=== PATIENT | male | born 1945 | race Caucasian/White ===

== ENCOUNTER 2016-12-16 06:14 | Inpatient (IN) ==
--- NOTE | 2016-12-11 21:25 | Discharge Summary ---
<LennyfabianoThelma keitaLeeanne L - Last Filed: 12/13/16 21:28> - Discharge Diagnosis (1) Arthritis of knee, right Priority: Primary Status: Acute (2) COPD (chronic obstructive pulmonary disease) Priority: Secondary Status: Chronic Qualifiers: COPD type: unspecified COPD Qualified Code(s): J44.9 - Chronic obstructive pulmonary disease, unspecified (3) HTN (hypertension) Priority: Secondary Status: Chronic Qualifiers: Hypertension type: essential hypertension Qualified Code(s): I10 - Essential (primary) hypertension (4) Tobacco use Priority: Secondary Status: Chronic (5) Dementia Priority: Secondary Status: Chronic Qualifiers: Dementia type: unspecified type Dementia behavioral disturbance: without behavioral disturbance Qualified Code(s): F03.90 - Unspecified dementia without behavioral disturbance - Discharge Medications Home Medications: Aspirin Enteric Coated [Aspirin EC] 325 mg PO DAILY #21 tablet. 12/13/16 [Rx] OxyCODONE Immed Rel [Roxicodone 5 MG] 5 - 10 mg PO Q6HR PRN #40 tablet 12/13/16 [Rx] Albuterol Sulfate [Albuterol Inhaler] 2 puff IH Q4HR PRN 12/16/16 [History] Amlodipine [Norvasc] 5 mg PO DAILY 12/16/16 [History] Ascorbate Calcium [Vitamin C] 500 mg PO DAILY 12/16/16 [History] Aspirin 325 mg PO DAILY 12/16/16 [History] Atenolol 100 mg PO DAILY 12/16/16 [History] Budesonide/Formoterol 160/4.5 [Symbicort 160/4.5] 2 puff IH BIDR 12/16/16 [ History] Capsaicin 0.025% [Trixaicin] 1 appl TP TID 12/16/16 [History] Cholecalciferol (D-3) [Vitamin D] 2,000 unit PO DAILY 12/16/16 [History] Cimetidine 400 mg PO DAILY 12/16/16 [History] Diphenoxylate/Atropine [Lomotil 2.5 mg/0.025 mg] 2 each PO QID 12/16/16 [History ] Donepezil [Aricept] 10 mg PO HS 12/16/16 [History] Ferrous Sulfate [Iron] 325 mg PO DAILY 12/16/16 [History] Fexofenadine HCl [Allergy Relief] 180 mg PO DAILY 12/16/16 [History] Finasteride [Proscar] 5 mg PO DAILY 12/16/16 [History] GuaiFENesin/Dextromethorphan [Robitussin Cough-Chest Dm Liq] 10 ml PO Q4H PRN [History] Guaifenesin [Mucus Relief] 400 mg PO TID PRN 12/16/16 [History] HYDROcodone/Acet 7.5/325 mg [[place] 7.5-325 mg] 1 tab PO Q4H PRN 12/16/16 [ History] Hydrochlorothiazide 12.5 mg PO DAILY 12/16/16 [History] Hydrocortisone 1% CREAM [Cortaid] 1 appl TP DAILY PRN 12/16/16 [History] Ipratropium/Albuterol Neb [Duoneb] 3 ml IH Q6HR PRN 12/16/16 [History] Loperamide [Imodium] 2 mg PO QID PRN 12/16/16 [History] Losartan/Hydrochlorothiazide [Hyzaar 100-25 Tablet] 1 each PO DAILY 12/16/16 [ History] Memantine HCl [Namenda Xr] 7 mg PO DAILY 12/16/16 [History] Multivit,Th Iron,Other Min [Therems-H] 1 each PO DAILY 12/16/16 [History] Multivitamin [One Daily Essential] 1 each PO DAILY 12/16/16 [History] Nicotine Patch [Nicoderm] 7 mg TD DAILY MDD 14 days 12/16/16 [History] Nicotine Patch [Nicoderm] 14 mg TD DAILY MDD 14 days 12/16/16 [History] Quetiapine Fumarate [Seroquel] 12.5 mg PO HS 12/16/16 [History] Sertraline [Zoloft] 50 mg PO DAILY 12/16/16 [History] Simvastatin [Zocor] 40 mg PO HS 12/16/16 [History] Tamsulosin [Flomax] 0.4 mg PO DAILY 12/16/16 [History] Tizanidine HCl 4 mg PO Q8H PRN 12/16/16 [History] Tramadol HCl [Ultram] 50 mg PO TID PRN 12/16/16 [History] Allergies/Adverse Reactions: Allergies No Known Allergies Allergy (Verified 12/16/16 07:17) Primary care physician: August Montejo MD - Patient Status Disposition: Home, Self-Care Condition: Good - Discharge Instructions Follow Up With: August Montejo MD [Primary Care Provider] - - Hospital Course Hospital course: Mr. Lay is a 70 year old male - Time Spent with Patient Total time spent providing and/or coordinating discharge services: <CatesAnderson - Last Filed: 12/18/16 07:57> Date of Encounter: 12/18/16 Time of Encounter: 07:56 - Discharge Diagnosis (1) Arthritis of knee, right Priority: Primary Status: Acute (2) COPD (chronic obstructive pulmonary disease) Priority: Secondary Status: Chronic Qualifiers: COPD type: unspecified COPD Qualified Code(s): J44.9 - Chronic obstructive pulmonary disease, unspecified (3) HTN (hypertension) Priority: Secondary Status: Chronic Qualifiers: Hypertension type: essential hypertension Qualified Code(s): I10 - Essential (primary) hypertension (4) Tobacco use Priority: Secondary Status: Chronic (5) Dementia Priority: Secondary Status: Chronic Qualifiers: Dementia type: unspecified type Dementia behavioral disturbance: without behavioral disturbance Qualified Code(s): F03.90 - Unspecified dementia without behavioral disturbance Primary care physician: August Montejo MD - Patient Status Functional capacity at discharge: uses cane/walker Overall status at discharge: patient is progressing back to baseline - Hospital Course Hospital course: Mr. Lay is a 70 year old male The patient had an uneventful postoperative course. They received antibiotics and physical therapy and were discharged in stable condition. There will follow -up in the office in 2 weeks. Aspirin DVT prophylaxis - Time Spent with Patient Total time spent providing and/or coordinating discharge services:
[2016-12-16] MEDS ORDERED: Vancomycin 1,250 MG in D5% in Water 250 ML IVPB ONE (06:35)
[2016-12-16] MEDS ORDERED: Albuterol 2.5 MG/3 ML NEBULIZER IH ONE (06:35)
--- NOTE | 2016-12-16 06:40 | History & Physical Report ---
Date of Encounter: 12/16/16 Time of Encounter: 06:39 24 Hour HP Update - Instructions Instructions: If the History and Physical is less than 30 days old and was completed prior to A.M. admission and or procedure and has NOT been updated on calendar day of procedure please complete this update prior to performing procedure. - Update Patient reports changes in Medical Condition: No Changes in assessment/condition: No Changes in Medication: No Preop tests/diagnostics Reviewed: Yes Surgery Remains Indicated: Yes Consent for Planned Operative Procedure(s) Verified: Yes - Pre-Operative Checklist Preoperative Checklist Indicated: No Prophylactic Antibiotic Ordered: Yes Is VTE Prophylaxis Indicated?: Yes
[2016-12-16] MEDS ORDERED: Ringers Solution, Lactated 1,000 ML IVC SCH (06:45)
[2016-12-16] MEDS ORDERED: Famotidine 20 MG/2 ML VIAL IVP ONE (07:47)
[2016-12-16] MEDS ORDERED: Acetaminophen IV 1,000 MG/100 ML INFUS..BTL IVPB ONE (07:49)
--- NOTE | 2016-12-16 07:55 | Anesthesia Evaluation PreOp ---
Date of Encounter: 12/16/16 Time of Encounter: 07:45 - Past History Planned Operation: Rt TKA Cardiac History: [place] (1983), HTN, Hyperlipidemia, Arrhythmia (Chronic AFib), Other (PVD) Pulmonary History: Smoker, COPD ACID REMOVER History: Denies Any Significant HX Other Medical History: Other (Mood Disorder) Anesthesia History: No Prior Anesthetic Complications Alcohol Use: none Drug use: none Medications and Allergies Aspirin Enteric Coated [Aspirin EC] 325 mg PO DAILY #21 tablet. 12/13/16 [Rx] OxyCODONE Immed Rel [Roxicodone 5 MG] 5 - 10 mg PO Q6HR PRN #40 tablet 12/13/16 [Rx] Albuterol Sulfate [Albuterol Inhaler] 2 puff IH Q4HR PRN 12/16/16 [History] Amlodipine [Norvasc] 5 mg PO DAILY 12/16/16 [History] Ascorbate Calcium [Vitamin C] 500 mg PO DAILY 12/16/16 [History] Aspirin 325 mg PO DAILY 12/16/16 [History] Atenolol 100 mg PO DAILY 12/16/16 [History] Budesonide/Formoterol 160/4.5 [Symbicort 160/4.5] 2 puff IH BIDR 12/16/16 [ History] Capsaicin 0.025% [Trixaicin] 1 appl TP TID 12/16/16 [History] Cholecalciferol (D-3) [Vitamin D] 2,000 unit PO DAILY 12/16/16 [History] Cimetidine 400 mg PO DAILY 12/16/16 [History] Diphenoxylate/Atropine [Lomotil 2.5 mg/0.025 mg] 2 each PO QID 12/16/16 [History ] Donepezil [Aricept] 10 mg PO HS 12/16/16 [History] Ferrous Sulfate [Iron] 325 mg PO DAILY 12/16/16 [History] Fexofenadine HCl [Allergy Relief] 180 mg PO DAILY 12/16/16 [History] Finasteride [Proscar] 5 mg PO DAILY 12/16/16 [History] GuaiFENesin/Dextromethorphan [Robitussin Cough-Chest Dm Liq] 10 ml PO Q4H PRN [History] Guaifenesin [Mucus Relief] 400 mg PO TID PRN 12/16/16 [History] HYDROcodone/Acet 7.5/325 mg [[place] 7.5-325 mg] 1 tab PO Q4H PRN 12/16/16 [ History] Hydrochlorothiazide 12.5 mg PO DAILY 12/16/16 [History] Hydrocortisone 1% CREAM [Cortaid] 1 appl TP DAILY PRN 12/16/16 [History] Ipratropium/Albuterol Neb [Duoneb] 3 ml IH Q6HR PRN 12/16/16 [History] Loperamide [Imodium] 2 mg PO QID PRN 12/16/16 [History] Losartan/Hydrochlorothiazide [Hyzaar 100-25 Tablet] 1 each PO DAILY 12/16/16 [ History] Memantine HCl [Namenda Xr] 7 mg PO DAILY 12/16/16 [History] Multivit,Th Iron,Other Min [Therems-H] 1 each PO DAILY 12/16/16 [History] Multivitamin [One Daily Essential] 1 each PO DAILY 12/16/16 [History] Nicotine Patch [Nicoderm] 7 mg TD DAILY MDD 14 days 12/16/16 [History] Nicotine Patch [Nicoderm] 14 mg TD DAILY MDD 14 days 12/16/16 [History] Quetiapine Fumarate [Seroquel] 12.5 mg PO HS 12/16/16 [History] Sertraline [Zoloft] 50 mg PO DAILY 12/16/16 [History] Simvastatin [Zocor] 40 mg PO HS 12/16/16 [History] Tamsulosin [Flomax] 0.4 mg PO DAILY 12/16/16 [History] Tizanidine HCl 4 mg PO Q8H PRN 12/16/16 [History] Tramadol HCl [Ultram] 50 mg PO TID PRN 12/16/16 [History] Allergies No Known Allergies Allergy (Verified 12/16/16 07:17) - Meds/Allergy Pre-op Review Medications Reviewed: Yes Allergies Reviewed: Yes Beta Blockers on Current Med List: Yes (will be given this am) Anesthesia Results - Labs Laboratory Tests 12/02/16 12/02/16 12/02/16 09:27 09:27 09:27 Hgb 13.6 Hct 42.1 Plt Count 275 PT 11.4 INR 1.1 APTT 27.5 Sodium 140 Potassium 3.8 BUN 30 H Creatinine 1.09 - Imaging EKG: report reviewed (Atrial Fib) Anesthesia Exam O2 Sat Height 1.68 m Height 1.68 m Weight 83.915 kg Weight 83.915 kg O2 Sat by Pulse Oximetry 96 Vital Signs Temp Pulse Resp BP Pulse Ox 99.0 F 98 18 133/78 96 12/16/16 06:32 12/16/16 06:32 12/16/16 06:32 12/16/16 06:32 12/16/16 06:32 Height: 5'7 Weight: 181 lbs NPO (# of Hours): MN Pain Scale: 0 - HEENT Pupil (Motor): Pupils equal, EOMI Mallampati: III Teeth: Edentulous Oral Opening: Less than or equal to 3 - ACID REMOVER LOC: Oriented ACID REMOVER Motor: Normal RUE, Normal LUE, Normal RLE, Normal LLE, Normal Face ACID REMOVER Sensory: Normal: RUE, LUE, RLE, LLE, Face - Cardiac Rhythm: Regular Murmur: None JVD: No Carotid Bruit: No - Pulmonary Breath Sounds: bilateral Clear Respiratory Effort: Symmetrical Anesthesia Assess/Plan ASA Score: 3 (AFib HTN COPD) Modified [place] Scale for Level of Consciousness: Cooperative, oriented, and tranquil Anesthetic Plan: General, Regional Monitoring Plan: Standard Monitors Recovery Plan: PACU (Discussed GA and RA, agrees to proceed)
[2016-12-16] MEDS ORDERED: Bupivacaine/Clonidine Syringe 1 EACH SYRINGE ONE (07:57)
[2016-12-16] MEDS ORDERED: Tetracaine/PF 20 MG/2 ML AMPUL SPINA ONE (08:00)
[2016-12-16] MEDS ORDERED: ROPIVACAINE HCL/PF 0.5% 30 ML VIAL ONE (08:00)
[2016-12-16] MEDS ORDERED: *HR* Midazolam HCl 2 MG/2 ML VIAL ONE (08:52)
[2016-12-16] MEDS ORDERED: *HR* FentaNYL (PF) 100 MCG/2 ML VIAL ONE (08:52)
[2016-12-16] MEDS ORDERED: *HR* Propofol 200 MG/20 ML VIAL IVP ONE (08:52)
[2016-12-16] MEDS ORDERED: Lidocaine -MPF 2% 2 ML VIAL ONE (08:52)
[2016-12-16] MEDS ORDERED: *HR* Phenylephrine 10 MG/ML VIAL ONE (08:52)
[2016-12-16] MEDS ORDERED: *HR* Labetalol 100 MG/20 ML MDV IVP PRN (08:58)
[2016-12-16] MEDS ORDERED: Ondansetron 4 MG/2 ML VIAL IVP PRN (08:58)
[2016-12-16] MEDS ORDERED: *HR* HYDROmorphone (PF) 1 MG/ML SYRINGE IVP PRN (08:58)
--- NOTE | 2016-12-16 09:04 | Anesthesia Procedures ---
Date of Encounter: 12/16/16 Time of Encounter: 08:20 Procedures: Anesthesia - Nerve Block Procedure Date: 12/16/16 Time: 08:20 Allergies/Adv Reactions: [id number] Pre-op Diagnosis: R knee arthritis Surgical Procedure: R TKA Checklist: Correct Patient Identifier, Correct procedure, History checked Correct side: Right Blood Thinner: Yes Monitor Applied: EKG, BP, Pulse Oximetry Supplemental Oxygen via Nasal Cannula (L/min): 3 Sedation: Versed (mg): 1 Sedation: Fentanyl (mcg): 50 Indication: Post Op Analgesia (requested by Dr. Cates) Pre-op Neuro Deficits: No Block Type: Femoral, Other (I-PACK) Catheter placed: No Sterile Technique: Yes Ultrasound used: Yes Anatomy identified: Yes Visual spread of Local: Yes Neuro Stimulation: Yes Nerve Stimulator Range: 0.2 - 0.4 mA Blood on Needle Aspiration: No Smooth Injection of Local: Yes Pain with Injection of Local: No Prep: Chlorhexadine Needle: 22 x 50 mm Stimuplex Local: 0.25% Bupivicaine w/Clonidine 20 mcg/cc (20), Tetracaine (2mL 1%), Ropivacaine (30mL 0.5%) Number of Attempts: 1 Complications: None/effective block Vitals: 3 Vital Signs Time pre-procedure post-procedure BP 128/73 135/70 Pulse 88 92 Resp 16 14 O2 Sat 99 99
--- NOTE | 2016-12-16 09:08 | Orthopedic Operative Note ---
Date of procedure: 12/16/16 Pre-op diagnosis: Right knee arthritis Post-op diagnosis: same Procedure: Procedure: Right Total knee replacement Estimated blood loss: 200 cc Hardware: Arthrex Femur: 6 Tibia: 5 PS insert: 13 Patella: 40 Exam Under anesthesia: Full flexion and extension no instability Procedural Notes: Patient noted to have grade 4 arthritic changes medial compartment grade 3 patellofemoral joint. Operative procedure: The patient was brought to the operating room and placed on the operating room table. After general anesthesia was administered the operative knee was examined. Findings were noted in the exam under anesthesia. The operative extremity was prepped and draped in sterile surgical fashion. The patient received IV antibiotics prior to skin incision. A standard midline incision was made centered over the patella. The incision was made through the skin and subcutaneous tissue. A medial parapatellar tendon approach was performed. Care was taken to preserve tissue along the medial aspect of the patella. And to protect the patella tendon. The deep MCL was released off the medial tibia. The infra patella fat pad was excised. Knee was brought into flexion. Patient noted to have grade 4 arthritic changes medial compartment grade 3 arthritic changes patellofemoral joint. The entry hole was made for the intramedullary femoral guide. The guide was seated in 6 degrees of valgus. Anterior cut was made followed by the distal cut. The ACL the PCL the medial and the lateral menisci were excised. The tibia was subluxed forward. The entry hole was made for the intramedullary tibial guide. Guide was seated to resect 2 mm off the more abnormal side. The knee was brought into flexion the distal femur was sized to a 6. The femoral guide was seated, the anterior cut was made followed by the posterior condylar cut, followed by the chamfer cuts. The finishing guide was seated the box cut was made and the lug holes were drilled. The tibia was sized to a 5, the tibial tray was seated and prepared with the large drill followed by the fin cutter. Trial reduction revealed full extension no varus valgus instability with the appropriate 13 PS Cristina. The patella was everted and cut was made at the level of the insertion of the quadriceps and patella tendon. The patella was sized to a 40 the guide was seated and the lug holes are drilled. Trial reduction revealed excellent patella tracking. All trial components were removed all bony surfaces were irrigated. The tibia was cemented first followed by the femur. The 13 PS Cristina was seated and the knee was brought into full extension. The patella was cemented and held in place with the patellar holding clamp. After the cement had hardened, the knee sat for 2 minutes with a Betadine saline solution. The knee was then irrigated out with 2 L of pulse irrigation. The extensor mechanism was closed with #2 FiberWire suture and #2 PDS suture. The subcutaneous tissue was then irrigated and closed deep with #1 PDS suture superficially with 0 PDS suture and skin was closed with skin mkial. The patient was then placed in a sterile dressing and a postoperative brace extubated and transferred to recovery room in stable condition. Anesthesia: LALITO Surgeon: Anderson Cates [place] Machine Operator: Leeanne Payan Condition: stable Disposition: PACU
[2016-12-16] MEDS ORDERED: Ondansetron 4 MG/2 ML VIAL ONE (09:22)
[2016-12-16] MEDS ORDERED: Dexamethasone 4 MG/ML VIAL ONE (09:22)
[2016-12-16 10:02] LABS: Hematocrit 35.4 % (37.5-50.1); Hemoglobin 11.4 g/dL (12.9-16.9)
[2016-12-16] MEDS ORDERED: Naloxone 0.4 MG/ML INJ IVP PRN (10:24)
[2016-12-16] MEDS ORDERED: *HR* OxyCODONE Immed Rel 5 MG TABLET PO PRN (10:24)
[2016-12-16] MEDS ORDERED: tiZANidine 4 MG TABLET PO PRN (10:24)
[2016-12-16] MEDS ORDERED: Acetaminophen 325 MG TABLET PO PRN (10:24)
[2016-12-16] MEDS ORDERED: Temazepam 15 MG CAPSULE PO PRN (10:24)
[2016-12-16] MEDS ORDERED: Nicotine 7 MG PATCH.TD24 TD SCH (10:24)
[2016-12-16] MEDS ORDERED: GuaiFENesin Liq 200 MG/10 ML UDC PO PRN (10:24)
[2016-12-16] MEDS ORDERED: Ipratropium/Albuterol Neb 3 ML IH PRN (10:24)
[2016-12-16] MEDS ORDERED: NON-FORMULARY MEDICATION 1 EACH EACH (Multivitamin [One Daily Essential] 1 EACH) PO SCH (10:24)
[2016-12-16] MEDS ORDERED: traMADol 50 MG TABLET PO PRN (10:24)
[2016-12-16] MEDS ORDERED: Sennosides 8.6 MG TABLET PO PRN (10:24)
[2016-12-16] MEDS ORDERED: Nicotine 14 MG PATCH.TD24 TD SCH (10:24)
[2016-12-16] MEDS ORDERED: MOM Conc 10 ML UD.LIQ PO PRN (10:24)
--- NOTE | 2016-12-16 10:24 | Anesthesia Evaluation Post Op ---
Date of Encounter: 12/16/16 Time of Encounter: 10:00 - Vital Signs Vital Signs: Vital Signs/O2 Sat/Glucose, Most Current Temp Pulse Resp BP Pulse Ox 12/16/16 10:06 97.2 F L 73 16 117/81 97 12/16/16 09:56 63 16 122/84 98 12/16/16 09:46 74 14 119/72 98 12/16/16 09:36 97.2 F L 79 12 102/69 99 12/16/16 08:19 86 16 135/85 98 12/16/16 08:05 95 16 145/78 97 12/16/16 06:32 99.0 F 98 18 133/78 96 - Lungs Lungs: Clear Ascult./Percussion - Airway Airway: Non-obstructed - Cardiovascular Regular Rate - Mental Status Mental Status: Alert & Oriented, Answers Appropriately - Pain Pain Scale: 0 - Nausea Vomiting Nausea Vomiting: Not Present - Hydration Hydration: Ice chips - Discharge PostOp Status: Transfer Patient to floor
[2016-12-16] MEDS: *HR* HYDROcodone/Acet 7.5/325 mg TABLET PO PRN (11:24)
[2016-12-16] MEDS: hydroCHLOROthiazide 25 MG TABLET PO SCH (12:30)
[2016-12-16] MEDS: Losartan/HCTZ 50-12.5 TABLET PO SCH (12:30)
[2016-12-16] MEDS: Nicotine 21 MG PATCH.TD24 TD SCH (12:37)
[2016-12-16] MEDS: Aspirin 325 MG TABLET PO SCH ×2 (12:37→12:45)
[2016-12-16] MEDS: Diphenoxylate/Atropine 1 TAB TABLET PO SCH ×4 (12:39→21:21)
[2016-12-16] MEDS: Ascorbic Acid 500 MG TABLET PO SCH (12:39)
[2016-12-16] MEDS: Famotidine 20 MG TABLET PO SCH (12:39)
[2016-12-16] MEDS: Finasteride 5 MG TABLET PO SCH (12:39)
[2016-12-16] MEDS: Multivit/Ca/Min/Fe/FA 1 TAB TABLET PO SCH (12:40)
[2016-12-16] MEDS: Capsaicin 0.025% 60 GM TUBE TP SCH ×3 (12:40→21:29)
[2016-12-16] MEDS: Cholecalciferol (D-3) 1,000 UNIT TABLET PO SCH (12:40)
[2016-12-16] MEDS: Loratadine 10 MG TABLET PO SCH (12:40)
[2016-12-16] MEDS: *HR* OxyCODONE Immed Rel 5 MG TABLET PO PRN ×3 (13:49→23:13)
[2016-12-16] MEDS: Budesonide/Formoterol 160/4.5 MDI IH SCH ×2 (14:55→20:46)
[2016-12-16] MEDS: amLODIPine 5 MG TABLET PO SCH (15:13)
[2016-12-16] MEDS: ceFAZolin 2,000 MG in D5% in Water 100 ML IVPB SCH ×2 (15:48→23:13)
[2016-12-16] MEDS ORDERED: *HR* Enoxaparin 30 MG/0.3 ML SYRINGE SQ SCH (18:00)
[2016-12-16] MEDS: *HR* Enoxaparin 30 MG/0.3 ML SYRINGE SQ SCH (18:41)
[2016-12-17] MEDS: *HR* Enoxaparin 30 MG/0.3 ML SYRINGE SQ SCH ×2 (05:06→18:04)
[2016-12-17 05:28] LABS: Hematocrit 35.3 % (37.5-50.1); Hemoglobin 11.6 g/dL (12.9-16.9)
[2016-12-17 05:39] LABS: BUN/Creatinine Ratio 23 (6-26); Blood Urea Nitrogen 23 mg/dL (8-26); Calcium 8.2 mg/dL (8.6-10.8); Carbon Dioxide 29 mEq/L (19-29); Chloride 100 mEq/L (98-109); Glucose 150 mg/dL (70-99); Osmolality,Calculated 293 (280-300); Potassium 3.8 mEq/L (3.5-4.5); Sodium 138 mEq/L (136-145); eGFR For African Americans > 60 (> 60); eGFR For Non-African Americans > 60 (> 60)
--- NOTE | 2016-12-17 06:27 | Orthopedics Progress Note ---
Date of Encounter: 12/17/16 Time of Encounter: 06:27 - Assessment and Plan (1) Arthritis of knee, right Current Visit: Yes Status: Acute (2) COPD (chronic obstructive pulmonary disease) Current Visit: Yes Status: Chronic Qualifiers: COPD type: unspecified COPD Qualified Code(s): J44.9 - Chronic obstructive pulmonary disease, unspecified (3) HTN (hypertension) Current Visit: Yes Status: Chronic Qualifiers: Hypertension type: essential hypertension Qualified Code(s): I10 - Essential (primary) hypertension (4) Tobacco use Current Visit: Yes Status: Chronic (5) Dementia Current Visit: Yes Status: Chronic Qualifiers: Dementia type: unspecified type Dementia behavioral disturbance: without behavioral disturbance Qualified Code(s): F03.90 - Unspecified dementia without behavioral disturbance Subjective Interval history: Patient was seen this morning doing well without complaints. Afebrile vital signs stable. Operative extremity: Neurovascularly intact Dressing clean dry and intact Calves nontender Assessment and plan: Continue with postoperative care Hematocrit 35 Objective Vital signs: Vital Signs Temp Pulse Resp BP Pulse Ox 12/17/16 04:00 98.5 F 83 16 118/78 100 12/17/16 00:26 98.8 F 71 16 135/81 95 12/16/16 21:31 96 12/16/16 20:46 18 96 12/16/16 19:43 98.9 F 88 16 129/85 97 12/16/16 11:28 97.2 F L 77 18 122/74 98 12/16/16 10:24 98.2 F 60 18 124/83 96 12/16/16 10:06 97.2 F L 73 16 117/81 97 12/16/16 09:56 63 16 122/84 98 12/16/16 09:46 74 14 119/72 98 12/16/16 09:36 97.2 F L 79 12 102/69 99 12/16/16 08:19 86 16 135/85 98 12/16/16 08:05 95 16 145/78 97 12/16/16 06:32 99.0 F 98 18 133/78 96 Intake and Output 12/16/16 12/16/16 12/17/16 15:59 23:59 07:59 Intake Total 540 / 540 Output Total 200 / 200 600 / 600 700 / 700 Balance -200 / -200 -60 / -60 -700 / -700 Intake: IV Fluids 100 / 100 Ancef 2,000 MG In 100 / 100 Dextrose 5% 100 ML @ 200 mls/hr IVPB Q8HR [facility] Rx#: [id number] Oral 440 / 440 Output: Urine 600 / 600 700 / 700 Estimated Blood Loss 200 / 200 Other: Meal Dinner Percent of Meal Consumed 100% - Labs CBC & BMP: 12/17/16 05:10 12/17/16 05:10 Labs: Abnormal lab results Hgb 11.6 g/dL (12.9-16.9) L 12/17/16 05:10 Hct 35.3 % (37.5-50.1) L 12/17/16 05:10 Glucose 150 mg/dL (70-99) H 12/17/16 05:10 Calcium 8.2 mg/dL (8.6-10.8) L 12/17/16 05:10 - VTE Documentation of Mechanical Device: Venous foot pump, device Consult Discharge Plan - Plan Referrals: August Montejo MD [Primary Care Provider] -
[2016-12-17] MEDS: *HR* OxyCODONE Immed Rel 5 MG TABLET PO PRN ×2 (06:56→10:51)
[2016-12-17] MEDS: Budesonide/Formoterol 160/4.5 MDI IH SCH ×2 (08:05→23:35)
[2016-12-17] MEDS: amLODIPine 5 MG TABLET PO SCH (09:16)
[2016-12-17] MEDS: Aspirin 325 MG TABLET PO SCH (09:16)
[2016-12-17] MEDS: Ascorbic Acid 500 MG TABLET PO SCH (09:16)
[2016-12-17] MEDS: Finasteride 5 MG TABLET PO SCH (09:16)
[2016-12-17] MEDS: Diphenoxylate/Atropine 1 TAB TABLET PO SCH ×4 (09:16→21:55)
[2016-12-17] MEDS: Cholecalciferol (D-3) 1,000 UNIT TABLET PO SCH (09:16)
[2016-12-17] MEDS: Multivit/Ca/Min/Fe/FA 1 TAB TABLET PO SCH (09:17)
[2016-12-17] MEDS: Losartan/HCTZ 50-12.5 TABLET PO SCH (09:17)
[2016-12-17] MEDS: Famotidine 20 MG TABLET PO SCH (09:17)
[2016-12-17] MEDS: hydroCHLOROthiazide 25 MG TABLET PO SCH (09:17)
[2016-12-17] MEDS: Loratadine 10 MG TABLET PO SCH (09:17)
[2016-12-17] MEDS: Nicotine 21 MG PATCH.TD24 TD SCH (09:18)
[2016-12-17] MEDS: Capsaicin 0.025% 60 GM TUBE TP SCH ×3 (09:19→21:57)
[2016-12-17] MEDS: Ondansetron 4 MG/2 ML VIAL IVP PRN ×2 (11:40→18:06)
[2016-12-17] MEDS: *HR* HYDROmorphone (PF) 1 MG/ML SYRINGE IVP PRN (18:04)
[2016-12-17] MEDS: *HR* HYDROcodone/Acet 7.5/325 mg TABLET PO PRN (21:56)
[2016-12-18] MEDS: *HR* Enoxaparin 30 MG/0.3 ML SYRINGE SQ SCH (04:25)
[2016-12-18 05:00] LABS: Hematocrit 32.2 % (37.5-50.1); Hemoglobin 10.7 g/dL (12.9-16.9)
[2016-12-18 05:16] LABS: BUN/Creatinine Ratio 25 (6-26); Blood Urea Nitrogen 21 mg/dL (8-26); Carbon Dioxide 33 mEq/L (19-29); Chloride 96 mEq/L (98-109); Glucose 105 mg/dL (70-99); Osmolality,Calculated 285 (280-300); Potassium 3.5 mEq/L (3.5-4.5); Sodium 136 mEq/L (136-145); eGFR For African Americans > 60 (> 60); eGFR For Non-African Americans > 60 (> 60)
[2016-12-18] MEDS: *HR* OxyCODONE Immed Rel 5 MG TABLET PO PRN ×3 (06:15→12:08)
[2016-12-18] MEDS: *HR* HYDROmorphone (PF) 1 MG/ML SYRINGE IVP PRN (06:19)
[2016-12-18] MEDS: Budesonide/Formoterol 160/4.5 MDI IH SCH (07:43)
--- NOTE | 2016-12-18 07:58 | Orthopedics Progress Note ---
Date of Encounter: 12/18/16 Time of Encounter: 07:57 - Assessment and Plan (1) Arthritis of knee, right Current Visit: Yes Status: Acute (2) COPD (chronic obstructive pulmonary disease) Current Visit: Yes Status: Chronic Qualifiers: COPD type: unspecified COPD Qualified Code(s): J44.9 - Chronic obstructive pulmonary disease, unspecified (3) HTN (hypertension) Current Visit: Yes Status: Chronic Qualifiers: Hypertension type: essential hypertension Qualified Code(s): I10 - Essential (primary) hypertension (4) Tobacco use Current Visit: Yes Status: Chronic (5) Dementia Current Visit: Yes Status: Chronic Qualifiers: Dementia type: unspecified type Dementia behavioral disturbance: without behavioral disturbance Qualified Code(s): F03.90 - Unspecified dementia without behavioral disturbance Subjective Interval history: Patient was seen this morning doing well without complaints. Afebrile vital signs stable. Operative extremity: Neurovascularly intact Dressing clean dry and intact Calves nontender Assessment and plan: Continue with postoperative care Hematocrit 32 discharged today Objective Vital signs: Vital Signs Temp Pulse Resp BP Pulse Ox 12/18/16 07:45 16 94 L 12/18/16 06:54 98.8 F 102 16 125/66 92 L 12/18/16 04:00 98.9 F 90 18 126/81 94 L 12/18/16 00:00 98.7 F 90 17 128/70 94 L 12/17/16 23:35 18 94 L 12/17/16 22:10 95 12/17/16 20:00 98.9 F 95 16 131/75 95 12/17/16 15:15 98.8 F 76 18 122/78 99 12/17/16 10:52 97.6 F 86 16 148/90 96 12/17/16 08:07 24 89 L Intake and Output 12/17/16 12/17/16 12/18/16 15:59 23:59 07:59 Intake Total 360 / 360 650 / 650 200 / 200 Output Total 575 / 575 250 / 250 Balance 360 / 360 75 / 75 -50 / -50 Intake: Oral 360 / 360 650 / 650 200 / 200 Output: Urine 575 / 575 250 / 250 Other: Meal Breakfast Percent of Meal Consumed 100% - Labs CBC & BMP: 12/18/16 04:31 12/18/16 04:31 Labs: Abnormal lab results Hgb 10.7 g/dL (12.9-16.9) L 12/18/16 04:31 Hct 32.2 % (37.5-50.1) L 12/18/16 04:31 Chloride 96 mEq/L (98-109) L 12/18/16 04:31 Carbon Dioxide 33 mEq/L (19-29) H 12/18/16 04:31 Glucose 105 mg/dL (70-99) H 12/18/16 04:31 - VTE Documentation of Mechanical Device: Venous foot pump, device Consult Discharge Plan - Plan Referrals: August Montejo MD [Primary Care Provider] -
[2016-12-18] MEDS: Ondansetron 4 MG/2 ML VIAL IVP PRN (08:04)
[2016-12-18] MEDS: Aspirin 325 MG TABLET PO SCH (08:07)
[2016-12-18] MEDS: Ascorbic Acid 500 MG TABLET PO SCH (08:07)
[2016-12-18] MEDS: Finasteride 5 MG TABLET PO SCH (08:07)
[2016-12-18] MEDS: Loratadine 10 MG TABLET PO SCH (08:08)
[2016-12-18] MEDS: hydroCHLOROthiazide 25 MG TABLET PO SCH (08:08)
[2016-12-18] MEDS: amLODIPine 5 MG TABLET PO SCH (08:09)
[2016-12-18] MEDS: Losartan/HCTZ 50-12.5 TABLET PO SCH (08:09)
[2016-12-18] MEDS: Famotidine 20 MG TABLET PO SCH (08:09)
[2016-12-18] MEDS: Diphenoxylate/Atropine 1 TAB TABLET PO SCH ×2 (08:10→12:08)
[2016-12-18] MEDS: Nicotine 21 MG PATCH.TD24 TD SCH (08:10)
[2016-12-18] MEDS: Multivit/Ca/Min/Fe/FA 1 TAB TABLET PO SCH (08:11)
[2016-12-18] MEDS: Cholecalciferol (D-3) 1,000 UNIT TABLET PO SCH (08:11)
[2016-12-18] MEDS: Capsaicin 0.025% 60 GM TUBE TP SCH ×2 (08:12→14:27)
[2016-12-18 11:30] VITALS: BP 130/97
--- NOTE | 2016-12-20 20:46 | Electrocardiograph Report ---
[place] [id number] Test Date: 2016-12-18 Pat Name: Dariel Lay Department: 114 Room: [facility] Gender: M Take Up Operator: : 1945 Requested By: Anderson Cates Order Number: [id number] Reading MD: Brien Jacques MD Measurements Intervals [place] Rate: 96 P: [place]: 0 QRS: 71 QRSD: 92 T: 35 QT: 372 QTc: 426 Interpretive Statements Atrial fibrillation with [address]-T wave abnormality Electronically Signed On 12-20-2016 20:44:32 EDT by Brien Jacques MD
== END 2016-12-18 15:09 | disposition home or self-care (01) | DRG 470 ==
LOC: SAMDAY 06:14 → 3NENU 10:04
PROVIDERS: ADMIT Orthopaedic Surgery; ATTEND Orthopaedic Surgery

== ENCOUNTER 2018-01-06 10:21 | Inpatient (IN) ==
--- NOTE | 2018-01-06 10:35 | Emergency Department Note ---
Disposition Clinical Impression: HCAP (healthcare-associated pneumonia), Chronic a-fib, COPD exacerbation Atrial fibrillation Qualifiers: Atrial fibrillation type: chronic Qualified Code(s): I48.2 - Chronic atrial fibrillation Pneumonia Qualifiers: Pneumonia type: due to other aerobic Gram-negative bacteria Laterality: unspecified laterality Lung location: unspecified part of lung Qualified Code(s) : J15.6 - Pneumonia due to other Gram-negative bacteria Disposition: Admitted As Inpatient Condition: Fair Time of Disposition: 13:58 Arrhythmia/Palpitations HPI - General Chief Complaint: ED Arrhythmia/Palpitations Time Seen by Provider: 01/06/18 10:27 Source: EMS Limitations: no limitations Nursing Notes Reviewed: Yes Vital Signs Reviewed: Yes - History of Present Illness HPI Narrative: Patient is a 72-year-old male brought in from [facility] nursing facility for witness A. fib RVR of 7 seconds. Patient states he does not feel any palpitations like he normally does whenever he goes into A. fib RVR. He does not have any complaints currently of chest pain chest pressure shortness of breath otherwise. Patient has a history of COPD, chronic A. fib. Patient is on oxygen 2 L at the halfway intermittently. Patient states she only uses oxygen and when he was in his room, but not all time. EMS states that patient was not hypoxic, did not have a complaints, but was directed to bring the patient for evaluation. - Related Data Home Medications Medication Instructions Recorded Confirmed Albuterol Sulfate [Albuterol 2 puff IH Q4HR PRN 12/16/16 01/06/18 Inhaler] Ascorbate Calcium [Vitamin C] 500 mg PO DAILY 12/16/16 01/06/18 Aspirin 325 mg PO DAILY 12/16/16 01/06/18 Atenolol 100 mg PO DAILY 12/16/16 01/06/18 Budesonide/Formoterol 160/4.5 2 puff IH BIDR 12/16/16 01/06/18 [Symbicort 160/4.5] Capsaicin 0.025% [Trixaicin] 1 appl TP TID 12/16/16 01/06/18 Cholecalciferol (D-3) [Vitamin D] 2,000 unit PO DAILY 12/16/16 01/06/18 Diphenoxylate/Atropine [Lomotil 2 each PO QID 12/16/16 01/06/18 2.5 mg/0.025 mg] Donepezil [Aricept] 10 mg PO HS 12/16/16 01/06/18 Ferrous Sulfate [Iron] 325 mg PO DAILY 12/16/16 01/06/18 Fexofenadine HCl [Allergy Relief] 180 mg PO DAILY 12/16/16 01/06/18 Finasteride [Proscar] 5 mg PO HS 12/16/16 01/06/18 GuaiFENesin/Dextromethorphan 10 ml PO Q4H PRN 12/16/16 01/06/18 [Robitussin Cough-Chest Dm Liq] Guaifenesin [Mucus Relief] 400 mg PO TID PRN 12/16/16 01/06/18 Hydrocortisone 1% CREAM [Cortaid] 1 appl TP DAILY PRN 12/16/16 01/06/18 Ipratropium/Albuterol Neb [Duoneb] 3 ml IH Q6HR PRN 12/16/16 01/06/18 Loperamide [Imodium] 2 mg PO QID PRN 12/16/16 01/06/18 Losartan/Hydrochlorothiazide 1 each PO DAILY 12/16/16 01/06/18 [Hyzaar 100-25 Tablet] Multivit,Th Iron,Other Min 1 each PO DAILY 12/16/16 01/06/18 [Therems-H] Multivitamin [One Daily Essential] 1 each PO DAILY 12/16/16 01/06/18 Simvastatin [Zocor] 40 mg PO HS 12/16/16 01/06/18 Tamsulosin [Flomax] 0.4 mg PO HS 12/16/16 01/06/18 Tizanidine HCl 4 mg PO Q8H PRN 12/16/16 01/06/18 amLODIPine [Norvasc] 5 mg PO DAILY 12/16/16 01/06/18 hydroCHLOROthiazide 12.5 mg PO DAILY 12/16/16 01/06/18 [Hydrochlorothiazide] Cimetidine 200 mg PO DAILY 11/11/17 01/06/18 Lactobacillus [Culturelle] 2 each PO BID 11/11/17 01/06/18 Memantine [Namenda] 5 mg PO DAILY 11/11/17 01/06/18 Sertraline [Zoloft] 25 mg PO DAILY 11/11/17 01/06/18 Bismuth Subsalicylate 524 mg PO QID PRN 01/06/18 01/06/18 [Pepto-Bismol] Furosemide [Lasix] 20 mg PO DAILY 01/06/18 01/06/18 Previous Rx's Medication Instructions Recorded OxyCODONE Immed Rel [Roxicodone 5 5 - 10 mg PO Q6HR PRN #40 tablet 12/13/16 MG] Allergies Allergy/AdvReac Type Severity Reaction Status Date / Time No Known Allergies Allergy Verified 01/06/18 12:32 All systems ED: reviewed and negative except as stated. Review of Systems: As Per HPI Constitutional: Denies: fever, chills, weakness Cardiovascular: Denies: chest pain, palpitations, dyspnea on exertion Respiratory: Denies: cough, dyspnea, wheezes Gastrointestinal: Denies: abdominal pain, nausea, vomiting, diarrhea Past Medical History - Past Medical History Attestation: Yes The following information was validated with the patient. Source: patient Medical history: Reports: arthritis, atrial fibrillation, COPD, hyperlipidemia, hypertension, myocardial infarction, other Surgical history: Reports: non-contributory Psychiatric history: Reports: no psych history, other - Social History Smoking Status: Current every day smoker Smokeless Tobacco Status: No Alcohol use: Reports: none Drug use: Reports: none Physical Exam Vital Signs Temperature 99.2 F 01/06/18 10:23 Pulse Rate 107 01/06/18 10:23 Respiratory Rate 20 01/06/18 10:23 Blood Pressure 114/92 01/06/18 10:23 O2 Sat by Pulse Oximetry 92 01/06/18 10:23 Temperature 99.2 F 01/06/18 10:23 Pulse Rate 107 01/06/18 10:23 Respiratory Rate 20 01/06/18 10:23 Blood Pressure 114/92 01/06/18 10:23 O2 Sat by Pulse Oximetry 92 01/06/18 10:23 Oxygen Delivery Oxygen Delivery Nasal Cannula CONSTITUTIONAL: Alert and oriented X3, well-nourished, well appearing, in no apparent distress HEAD: Normocephalic; atraumatic. EYES: PERRL, no scleral icterus. NOSE: The nose is normal in appearance without rhinorrhea RESP: Patient has bilateral lung wheezing. No rales or rhonchi CARD: Rhythm irregularly irregular, no rubs murmurs or gallops ABD: Non-distended; non-tender, soft,without rigidity, rebound or guarding SKIN: Normal for age and race; warm and dry; no apparent lesions - General Limitations: no limitations General appearance: alert, in no apparent distress Course - Reevaluation(s) Reevaluation #1: Patient is unwell. No recurrence of chest pain. Patient has eaten and is currently happy. Patient states he is happy as long as he has food Time: 13:55 Vital Signs Temperature 99.2 F 01/06/18 10:23 Pulse Rate 107 01/06/18 10:23 Respiratory Rate 20 01/06/18 10:23 Blood Pressure 114/92 01/06/18 10:23 O2 Sat by Pulse Oximetry 92 01/06/18 10:23 Temperature 99.0 F 01/06/18 18:17 Pulse Rate 120 01/06/18 18:17 Respiratory Rate 16 01/06/18 18:17 Blood Pressure 108/63 01/06/18 18:17 O2 Sat by Pulse Oximetry 92 01/06/18 18:17 Oxygen Delivery Oxygen Delivery Nasal Cannula Arrhythmia/Palpitations - [facility] Narrative Medical decision making narrative: Patient brought in for [facility] Patient's currently asymptomatic and had no complaints at the onset of rapid heart rate seen on monitor at the halfway of 150 that lasted 7 seconds. Patient does have a history of chronic A. fib and TX in the past. Patient will have chest x-ray and labs accomplished to include CBC BMP troponin and TSH. EKG taken which shows A. fib at a rate of 95 beats minute with some mild ST depression in lateral leads V4 and V5. Patient is not having any chest pain. Patient's chest x-ray Patient's CURB-65 score of 14 days greater than 65 still places him in a low risk group for considering outpatient treatment Patient's chest x-ray: Read per radiology IMPRESSION: Consolidation to the right mid lung zone predominantly peripherally along with more mild streaky/patchy airspace opacities to the right lower lung zone. Findings are concerning for multifocal infiltrates. Other etiologies not excluded. Clinical correlation and continued follow-up to resolution recommended. Patient's CURB-65 score of 14 days greater than 65 still places him in a low risk group for considering outpatient treatment, but unfortunately patient falls under healthcare associated pneumonia since residing at a long-term facility and requires IV antibiotics. Patient is being started on 1500 mg vancomycin, 3.375 mg Zosyn, 750 mg levofloxacin, all IV. Patient understands and agrees to treatment plan for admission. Patient was accepted for admission by Dr. Lockett in stable condition without chest pain to a telemetry bed. - Lab Data Lab results reviewed: Yes I reviewed the patient's lab results. Lab results narrative: Short CBC 01/06/18 Range/Units 10:38 WBC 11.0 (4.3-11.1) K/mcL Hgb 10.5 L (12.9-16.9) g/dL Hct 33.7 L (37.5-50.1) % Plt Count 217 (140-400) K/mcL Neutrophils # 9.0 H (1.6-8.9) K/mcL BMP 01/06/18 Range/Units 10:38 Sodium 138 (136-145) mEq/L Potassium 3.6 (3.5-5.1) mEq/L Chloride 97 L (98-107) mEq/L Carbon Dioxide 34 H (23-29) mEq/L BUN 27 H (8-23) mg/dL Creatinine 1.21 (0.70-1.30) mg/dL Glucose 107 H (70-105) mg/dL Calcium 9.1 (8.6-10.3) mg/dL Cardiac Enzymes 01/06/18 Range/Units 10:38 Troponin I 0.03 (< 0.04) ng/mL Result diagrams: 01/06/18 10:38 01/06/18 10:38 Lab Results 01/06/18 01/06/18 Range/Units 10:38 10:38 WBC 11.0 (4.3-11.1) K/mcL RBC 3.77 L (4.19-5.50) M/mcL Hgb 10.5 L (12.9-16.9) g/dL Hct 33.7 L (37.5-50.1) % MCV 89.4 (83.0-100.0) fL MCH 27.9 L (28.0-33.3) pg MCHC 31.2 L (31.6-35.5) g/dL RDW 15.9 H (11.5-14.5) % Plt Count 217 (140-400) K/mcL MPV 9.0 L (9.4-12.4) fL Immature Gran % 0.4 (0-4) % Seg Neutrophils % 81.8 % Lymphocytes % 7.7 % Monocytes % 8.3 % Eosinophils % 1.6 % Basophils % 0.2 % Neutrophils # 9.0 H (1.6-8.9) K/mcL Lymphocytes # 0.9 (0.6-4.6) K/mcL Monocytes # 0.9 (0.0-1.3) K/mcL Eosinophils # 0.2 (0.0-0.6) K/mcL Basophils # 0.0 (0.0-0.2) K/mcL Sodium 138 (136-145) mEq/L Potassium 3.6 (3.5-5.1) mEq/L Chloride 97 L (98-107) mEq/L Carbon Dioxide 34 H (23-29) mEq/L BUN 27 H (8-23) mg/dL Creatinine 1.21 (0.70-1.30) mg/dL Est GFR ( Amer) > 60 (> 60) Est GFR (Non-Af Amer) 59 L (> 60) BUN/Creatinine Ratio 22 (6-26) Glucose 107 H (70-105) mg/dL Calculated Osmolality 292 (280-300) Calcium 9.1 (8.6-10.3) mg/dL Troponin I 0.03 (< 0.04) ng/mL TSH 6.876 H (0.340-5.600) mcIU/mL - Radiology Data Radiology results reviewed: Yes I reviewed the patient's radiology results. Chest X-Ray 01/06/18 10:29 IMPRESSION: Consolidation to the right mid lung zone predominantly peripherally along with more mild streaky/patchy airspace opacities to the right lower lung zone. Findings are concerning for multifocal infiltrates. Other etiologies not excluded. Clinical correlation and continued follow-up to resolution recommended. D/ / 01/06/2018 10:46:41 Frank Dean MD / [facility] Interpreting Provider: Frank Dean MD - EKG Data EKG attestation: Yes I reviewed and interpreted this EKG. EKG results narrative: EKG taken EKG taken 01/06/2018 at 1031 hrs. shows A. fib at a rate of 95 beats minute no acute ST elevations or depressions in any leads, no cures Nel QT elongation. Narrow complex. No change prior EKG taken 12/18/2016.
[2018-01-06] MEDS ORDERED: Ipratropium/Albuterol Neb 3 ML IH ONE (10:38)
[2018-01-06] MEDS ORDERED: predniSONE 20 MG TABLET PO ONE (10:39)
[2018-01-06 10:49] LABS: Basophils % 0.2 %; Eosinophils # 0.2 K/mcL (0.0-0.6); Eosinophils % 1.6 %; Hematocrit 33.7 % (37.5-50.1); Hemoglobin 10.5 g/dL (12.9-16.9); Immature Granulocytes % 0.4 % (0-4); Lymphocytes # 0.9 K/mcL (0.6-4.6); Lymphocytes % 7.7 %; Mean Corpuscular HGB Conc 31.2 g/dL (31.6-35.5); Mean Corpuscular Hemoglobin 27.9 pg (28.0-33.3); Mean Corpuscular Volume 89.4 fL (83.0-100.0); Monocytes # 0.9 K/mcL (0.0-1.3); Monocytes % 8.3 %; Platelet Count 217 K/mcL (140-400); Red Blood Count 3.77 M/mcL (4.19-5.50); Red Cell Distribution Width 15.9 % (11.5-14.5); Segmented Neutrophils % 81.8 %
--- NOTE | 2018-01-06 11:12 | Emergency Department Note ---
Disposition Clinical Impression: Atrial fibrillation Qualifiers: Atrial fibrillation type: chronic Qualified Code(s): I48.2 - Chronic atrial fibrillation Pneumonia Qualifiers: Pneumonia type: due to other aerobic Gram-negative bacteria Laterality: unspecified laterality Lung location: unspecified part of lung Qualified Code(s) : J15.6 - Pneumonia due to other Gram-negative bacteria Disposition: Still a Patient Referrals: August Montejo MD [Primary Care Provider] - General Adult HPI - General Chief complaint: ED Arrhythmia/Palpitations Stated complaint: AFIB Time Seen by Provider: 01/06/18 10:27 Source: EMS Limitations: no limitations - History of Present Illness Pain Scale: 0 - Related Data Home Medications Medication Instructions Recorded Confirmed Albuterol Sulfate [Albuterol 2 puff IH Q4HR PRN 12/16/16 11/11/17 Inhaler] Ascorbate Calcium [Vitamin C] 500 mg PO DAILY 12/16/16 11/11/17 Aspirin 325 mg PO DAILY 12/16/16 11/11/17 Atenolol 100 mg PO DAILY 12/16/16 11/11/17 Budesonide/Formoterol 160/4.5 2 puff IH BIDR 12/16/16 11/11/17 [Symbicort 160/4.5] Capsaicin 0.025% [Trixaicin] 1 appl TP TID 12/16/16 11/11/17 Cholecalciferol (D-3) [Vitamin D] 2,000 unit PO DAILY 12/16/16 11/11/17 Diphenoxylate/Atropine [Lomotil 2 each PO QID 12/16/16 11/11/17 2.5 mg/0.025 mg] Donepezil [Aricept] 10 mg PO HS 12/16/16 11/11/17 Ferrous Sulfate [Iron] 325 mg PO DAILY 12/16/16 11/11/17 Fexofenadine HCl [Allergy Relief] 180 mg PO DAILY 12/16/16 11/11/17 Finasteride [Proscar] 5 mg PO HS 12/16/16 11/11/17 GuaiFENesin/Dextromethorphan 10 ml PO Q4H PRN 12/16/16 11/11/17 [Robitussin Cough-Chest Dm Liq] Guaifenesin [Mucus Relief] 400 mg PO TID PRN 12/16/16 11/11/17 Hydrocortisone 1% CREAM [Cortaid] 1 appl TP DAILY PRN 12/16/16 11/11/17 Ipratropium/Albuterol Neb [Duoneb] 3 ml IH Q6HR PRN 12/16/16 11/11/17 Loperamide [Imodium] 2 mg PO QID PRN 12/16/16 11/11/17 Losartan/Hydrochlorothiazide 1 each PO DAILY 12/16/16 11/11/17 [Hyzaar 100-25 Tablet] Multivit,Th Iron,Other Min 1 each PO DAILY 12/16/16 11/11/17 [Therems-H] Multivitamin [One Daily Essential] 1 each PO DAILY 12/16/16 11/11/17 Simvastatin [Zocor] 40 mg PO HS 12/16/16 11/11/17 Tamsulosin [Flomax] 0.4 mg PO HS 12/16/16 11/11/17 Tizanidine HCl 4 mg PO Q8H PRN 12/16/16 11/11/17 amLODIPine [Norvasc] 5 mg PO DAILY 12/16/16 11/11/17 hydroCHLOROthiazide 12.5 mg PO DAILY 12/16/16 11/11/17 [Hydrochlorothiazide] Cimetidine 200 mg PO DAILY 11/11/17 11/11/17 Lactobacillus [Culturelle] 2 each PO BID 11/11/17 11/11/17 Memantine [Namenda] 5 mg PO DAILY 11/11/17 11/11/17 Sertraline [Zoloft] 25 mg PO DAILY 11/11/17 11/11/17 Previous Rx's Medication Instructions Recorded OxyCODONE Immed Rel [Roxicodone 5 5 - 10 mg PO Q6HR PRN #40 tablet 12/13/16 MG] Allergies Allergy/AdvReac Type Severity Reaction Status Date / Time No Known Allergies Allergy Verified 11/04/17 11:34 Constitutional: Denies: fever, chills, weakness Cardiovascular: Denies: chest pain, palpitations, dyspnea on exertion Respiratory: Denies: cough, dyspnea, wheezes Gastrointestinal: Denies: abdominal pain, nausea, vomiting, diarrhea Past Medical History - Past Medical History Medical history: Reports: arthritis, atrial fibrillation, COPD, hyperlipidemia, hypertension, myocardial infarction, other Surgical history: Reports: non-contributory Psychiatric history: Reports: no psych history, other - Social History Smoking Status: Current every day smoker Smokeless Tobacco Status: No Alcohol use: Reports: none Drug use: Reports: none Physical Exam - General Limitations: no limitations General appearance: alert, in no apparent distress Course - Reevaluation(s) Reevaluation #1: Attestation note I examined this patient and my medical decision-making was reviewed with the emergency medicine resident. I agree with the documented findings, disposition and treatment plan as described except to the extent set forth below. Patient seen with emergency medicine resident Dr. Justice Shrestha, Please see a copy of his note for details of the H&P, ED evaluation, management and disposition. I have independently evaluated the patient and confirmed appropriate portions of the history and physical exam. Briefly:72-year-old male resident of [facility] via EMS for A. fib with Francisco of RVR for several seconds. Patient arrives in A. fib RATE controlled awake and alert little bit of shortness of breath some cough says he has had a chill but no fever. EKG shows atrial fibrillation rate controlled at about 10 2 bpm no acute ischemic changes. Troponin and other screening labs are pending. Chest x-ray read by radiology shows multifocal infiltrates consistent with pneumonia. He was in the 65 score is 1. based on age alone and should be amenable if other workup remaining is otherwise unremarkable to be discharge [facility] with healthcare acquired multifocal pneumonia and antibiotics orally. Patient will be getting a dose of antibiotics here parenterally. Disposition pending Time: 11:17 Vital Signs Temperature 99.2 F 01/06/18 10:23 Pulse Rate 107 01/06/18 10:23 Respiratory Rate 20 01/06/18 10:23 Blood Pressure 114/92 01/06/18 10:23 O2 Sat by Pulse Oximetry 92 01/06/18 10:23 Temperature 99.2 F 01/06/18 10:23 Pulse Rate 107 01/06/18 10:23 Respiratory Rate 20 01/06/18 10:23 Blood Pressure 114/92 01/06/18 10:23 O2 Sat by Pulse Oximetry 92 01/06/18 10:23 Oxygen Delivery Oxygen Delivery Nasal Cannula Medical Decision Making - Lab Data Result diagrams: 01/06/18 10:38 Lab Results 01/06/18 Range/Units 10:38 WBC 11.0 (4.3-11.1) K/mcL RBC 3.77 L (4.19-5.50) M/mcL Hgb 10.5 L (12.9-16.9) g/dL Hct 33.7 L (37.5-50.1) % MCV 89.4 (83.0-100.0) fL MCH 27.9 L (28.0-33.3) pg MCHC 31.2 L (31.6-35.5) g/dL RDW 15.9 H (11.5-14.5) % Plt Count 217 (140-400) K/mcL MPV 9.0 L (9.4-12.4) fL Immature Gran % 0.4 (0-4) % Seg Neutrophils % 81.8 % Lymphocytes % 7.7 % Monocytes % 8.3 % Eosinophils % 1.6 % Basophils % 0.2 % Neutrophils # 9.0 H (1.6-8.9) K/mcL Lymphocytes # 0.9 (0.6-4.6) K/mcL Monocytes # 0.9 (0.0-1.3) K/mcL Eosinophils # 0.2 (0.0-0.6) K/mcL Basophils # 0.0 (0.0-0.2) K/mcL
[2018-01-06 11:26] LABS: Troponin I 0.03 ng/mL (< 0.04)
[2018-01-06 11:30] LABS: BUN/Creatinine Ratio 22 (6-26); Blood Urea Nitrogen 27 mg/dL (8-23); Calcium 9.1 mg/dL (8.6-10.3); Carbon Dioxide 34 mEq/L (23-29); Chloride 97 mEq/L (98-107); Glucose 107 mg/dL (70-105); Osmolality,Calculated 292 (280-300); Potassium 3.6 mEq/L (3.5-5.1); Sodium 138 mEq/L (136-145); eGFR For African Americans > 60 (> 60); eGFR For Non-African Americans 59 (> 60)
[2018-01-06 11:40] LABS: Thyroid Stimulating Hormone 6.876 mcIU/mL (0.340-5.600)
[2018-01-06] MEDS ORDERED: Piperacillin/Tazobactam 3.375 GM in 0.9 % Sodium Chloride Mini Bag 100 ML IVPB ONE (11:45)
[2018-01-06] MEDS ORDERED: Levofloxacin 750 MG/150 ML 750 MG/150 ML BAG IVPB ONE (11:45)
[2018-01-06] MEDS ORDERED: Naloxone 0.4 MG/ML INJ IVP PRN (13:18)
[2018-01-06] MEDS ORDERED: Acetaminophen 325 MG TABLET PO PRN (13:18)
[2018-01-06] MEDS ORDERED: *HR* OxyCODONE Immed Rel 5 MG TABLET PO PRN (13:54)
[2018-01-06] MEDS ORDERED: tiZANidine 4 MG TABLET PO PRN (13:54)
[2018-01-06] MEDS ORDERED: GuaiFENesin Liq 200 MG/10 ML UDC PO PRN (13:54)
--- NOTE | 2018-01-06 14:29 | Internal Med History&Physical ---
<KarinjosemanueltomJone chaidez - Last Filed: 01/06/18 18:37> Date of Encounter: 01/06/18 Time of Encounter: 12:30 Internal Medicine - H&P: HPI Chief complaint: Palpitations Admitted From: Emergency Dept Plans for Post Hospital Care: Home History of present illness: Mr. Lay is a 72 year old male w/PMH of arthritis, atrial fibrillation, COPD, HLD, HTN, and previous myocardial infarction in 1983 without stent placement presents from the ED with chief complaint of brief atrial fibrillation with RVR at [facility]. Patient reports he has chronic and intermittent A. fib but is not anticoagulated. Reports chronic diarrhea, cough and mild SOB but denies chest pain, chest pressure, nausea, diaphoresis. Pt. reports he has COPD and uses O2 @night at SNF. Denies use of BiPAP or CPAP. Pt. denies recent illness, fever, chills, vomiting, changes in vision, headache, chest pain, chest congestion, abdominal pain, constipation, numbness, tingling, dizziness, lightheadedness, pre-syncope, or syncope. Past Med Surg Social Fam HX - Past Medical History Source: patient, old records reviewed Medical history: arthritis, atrial fibrillation, COPD, hyperlipidemia, hypertension, myocardial infarction (In 1983, no stents placed), other Psychiatric history: no psych history, other - Past Surgical History Surgical History: non-contributory - Social History Smoking Status: Current every day smoker Packs per day: 1 PPD Smokeless Tobacco Status: No Alcohol use: none Drug use: none Current living situation: Other ([facility]) Activity Level: Independent ambulation Recent Out of Country Travel Within the Last 8 Weeks: No Exposure or Possible Exposure to Illness During Travel: No - Family History Father Race: Family Member Ethnicity: Non- Living Status: Age at : 83 Cause of : Old age Hx Family Cardiac Disorders: Yes (HD) Mother Race: Family Member Ethnicity: Non- Living Status: Age at : 83 Cause of : Old age Sister Race: Family Member Ethnicity: Non- Living Status: Age at : 80 Cause of : [place] Hx Family Cardiac Disorders: Yes ([place], HD) Internal Medicine - H&P: Meds OxyCODONE Immed Rel [Roxicodone 5 MG] 5 - 10 mg PO Q6HR PRN #40 tablet 12/13/16 [Rx] Albuterol Sulfate [Albuterol Inhaler] 2 puff IH Q4HR PRN 12/16/16 [History] Ascorbate Calcium [Vitamin C] 500 mg PO DAILY 12/16/16 [History] Aspirin 325 mg PO DAILY 12/16/16 [History] Atenolol 100 mg PO DAILY 12/16/16 [History] Budesonide/Formoterol 160/4.5 [Symbicort 160/4.5] 2 puff IH BIDR 12/16/16 [ History] Capsaicin 0.025% [Trixaicin] 1 appl TP TID 12/16/16 [History] Cholecalciferol (D-3) [Vitamin D] 2,000 unit PO DAILY 12/16/16 [History] Diphenoxylate/Atropine [Lomotil 2.5 mg/0.025 mg] 2 each PO QID 12/16/16 [History ] Donepezil [Aricept] 10 mg PO HS 12/16/16 [History] Ferrous Sulfate [Iron] 325 mg PO DAILY 12/16/16 [History] Fexofenadine HCl [Allergy Relief] 180 mg PO DAILY 12/16/16 [History] Finasteride [Proscar] 5 mg PO HS 12/16/16 [History] GuaiFENesin/Dextromethorphan [Robitussin Cough-Chest Dm Liq] 10 ml PO Q4H PRN [History] Guaifenesin [Mucus Relief] 400 mg PO TID PRN 12/16/16 [History] Hydrocortisone 1% CREAM [Cortaid] 1 appl TP DAILY PRN 12/16/16 [History] Ipratropium/Albuterol Neb [Duoneb] 3 ml IH Q6HR PRN 12/16/16 [History] Loperamide [Imodium] 2 mg PO QID PRN 12/16/16 [History] Losartan/Hydrochlorothiazide [Hyzaar 100-25 Tablet] 1 each PO DAILY 12/16/16 [ History] Multivit,Th Iron,Other Min [Therems-H] 1 each PO DAILY 12/16/16 [History] Multivitamin [One Daily Essential] 1 each PO DAILY 12/16/16 [History] Simvastatin [Zocor] 40 mg PO HS 12/16/16 [History] Tamsulosin [Flomax] 0.4 mg PO HS 12/16/16 [History] Tizanidine HCl 4 mg PO Q8H PRN 12/16/16 [History] amLODIPine [Norvasc] 5 mg PO DAILY 12/16/16 [History] hydroCHLOROthiazide [Hydrochlorothiazide] 12.5 mg PO DAILY 12/16/16 [History] Cimetidine 200 mg PO DAILY 11/11/17 [History] Lactobacillus [Culturelle] 2 each PO BID 11/11/17 [History] Memantine [Namenda] 5 mg PO DAILY 11/11/17 [History] Sertraline [Zoloft] 25 mg PO DAILY 11/11/17 [History] Bismuth Subsalicylate [Pepto-Bismol] 524 mg PO QID PRN 01/06/18 [History] Furosemide [Lasix] 20 mg PO DAILY 01/06/18 [History] 3 Allergy/AdvReac Type Severity Reaction Status Date / Time No Known Allergies Allergy Verified 01/06/18 12:32 All Systems PM: A 10-system review of systems was performed and is negative for pertinent findings except as documented above in the HPI. - Constitutional Constitutional: no chills, no fever(s), no night sweats - EENT Eyes: no change in vision, no discharge, no pain, no photophobia Ears: no ear discharge, no ear pain, no tinnitus Nose, mouth and throat: no dysphagia, no nasal discharge, no neck pain, no sore throat - Breasts Breasts: as per HPI - Cardiovascular Cardiovascular ROS IM: as per HPI, dyspnea (Mild), irregular heart rhythm (Hx of chronic and intermittent Afib), palpitations, no chest pain, no diaphoresis, no lightheadedness, no syncope - Respiratory Respiratory: as per HPI, cough, dyspnea, no wheezing, no excessive phlegm production - Gastrointestinal Gastrointestinal: as per HPI, diarrhea, no abdominal pain, no hematemesis, no hematochezia, no melena, no nausea, no vomiting - Genitourinary Genitourinary ROS male: as per HPI, difficulty urinating - Musculoskeletal Musculoskeletal ROS IM: no numbness, no tingling - Integumentary Integumentary IM: no rash, no unusual bruising - Neurological Neurological ROS: no confusion, no convulsions, no focal weakness, no numbness, no tingling, no tremor(s) - Psychiatric Psychiatric: as per HPI - Endocrine Endocrine IM: as per HPI - Hematologic/Lymphatic Hematologic/Lymphatic: no easy bruising - Allergic/Immunologic Allergic/Immunologic: as per HPI - Constitutional Vitals: Temp Pulse Resp BP Pulse Ox 99.2 F 111 18 124/78 91 01/06/18 10:23 01/06/18 12:48 01/06/18 14:18 01/06/18 14:18 01/06/18 12:48 General appearance: Present: cooperative, A&O X 3, pleasant, no acute distress, obese, answers questions appropriately - Head Head exam: Present: atraumatic, normocephalic - Eye Eye exam: Present: PERRL, conjuntiva pink, sclera anicteric Pupils: Present: PERRL - ENT ENT exam: Present: normal exam - Neck Neck exam general surgery: Present: supple, trachea midline. Absent: lymphadenopathy - Respiratory Respiratory exam: Present: decreased breath sounds, wheezes. Absent: accessory muscle use, rales, rhonchi - Cardiovascular Cardiovascular exam: Present: irregular rhythm - GI/Abdominal GI/Abdominal exam: Present: normal bowel sounds, soft, no peritoneal signs. Absent: distended, tenderness - Rectal Rectal exam: Present: deferred - Additional comments: exam deferred. - Extremities Exam Extremities exam: Present: warm, radial pulses palpable and symmetrical. Absent : calf tenderness, cyanotic, pedal edema - Back Exam Back exam: Present: normal inspection - Neurological Exam Neurological exam: Present: CN II-XII intact, oriented X3, no focal deficits. Absent: pronater drift, facial droop, speech deficit - Psychiatric Psychiatric exam: Present: normal affect, normal mood - Skin Skin exam: Present: dry, intact Internal Med - H&P Results - Labs CBC & Chem 7: 01/06/18 10:38 01/06/18 10:38 - EKG Data Prior EKG available for review: yes EKG comments: 01/06/18 14:41 EKG dated 12/18/16 shows atrial fibrillation with 1 PVC, nonspecific ST-T wave abnormality. EKG dated 01/06/18 shows atrial fibrillation with minimal ST depression. - Diagnostic Studies Chest x-ray Additional comments: Impressions Chest X-Ray 01/06/18 10:29 IMPRESSION: Consolidation to the right mid lung zone predominantly peripherally along with more mild streaky/patchy airspace opacities to the right lower lung zone. Findings are concerning for multifocal infiltrates. Other etiologies not excluded. Clinical correlation and continued follow-up to resolution recommended. D/ / 01/06/2018 10:46:41 Frank Dean MD / [facility] Interpreting Provider: Frank Dean MD - Assessment and plan (1) HCAP (healthcare-associated pneumonia) Current Visit: Yes Status: Acute Assessment and plan: Acute HCAP. Pt. is resident of [facility]. CXR today shows consolidation to the right midlung zone predominantly peripherally along with 40 mild streaky/ patchy airspace opacities to the right lower lung zone. Left lung appears to be clear. No pleural effusions, pulmonary edema, or pneumothoraces. Cardiac and mediastinal silhouettes are within normal limits with heart size at upper limits of normal. No acute bony abnormalities. Xopenex 1.25 IH Q6HR. IVPB vancomycin with pharmacy dosing, Zosyn 3.375 gm every 8 hour, Levaquin 750 mg daily for infection coverage. Blood cultures 2 ordered. Legionella and strep pneumoniae antigens ordered. Will adjust abx coverage based on culture and antigen results if warranted. WBC 11.0 on admission. HR 111, RR 18. Pt. and f/u labs to be monitored closely for signs of sepsis. Pt. discussed w/Dr. Cruz who agrees w/plan of care. Pt. is high risk for further morbidity d/t current Afib w /RVR w/o anticoagulation, hx of Afib, current HCAP, hx, current tobacco abuse, and risk factors. Inpatient. (2) Elevated TSH Current Visit: Yes Status: Acute Assessment and plan: Acute hypothyroidism w/TSH of 6.876 on admission. Pt. denies hx of thyroid disease. Pt. should follow up w/PCP/Endocrinology on OP basis. (3) Atrial fibrillation Current Visit: Yes Status: Chronic Assessment and plan: Acute on chronic atrial fibrillation. Pt. had brief episode of Afib w/RVR today. Denies chest pain, chest pressure, or other cardiac symptoms. Initial troponin <0.03. Pt. denies anticoagulation. Takes aspirin only. Concern is for chronic Afib w/o anticoagulation. Echocardiogram ordered. Continuous cardiac telemetry. Cardiology consult ordered and discussed with Dr. Li and I appreciate the consult. Qualifiers: Atrial fibrillation type: chronic Qualified Code(s): I48.2 - Chronic atrial fibrillation (4) HLD (hyperlipidemia) Current Visit: Yes Status: Chronic Assessment and plan: Hx of chronic HLD. Lipid panel in a.m. labs. Continue pts. Zocor. Qualifiers: Hyperlipidemia type: pure hypercholesterolemia Qualified Code(s): E78.00 - Pure hypercholesterolemia, unspecified; E78.0 - Pure hypercholesterolemia (5) HTN (hypertension) Current Visit: Yes Status: Chronic Assessment and plan: Hx of chronic HTN. Monitor pt. and VS. Continue pts. Losartan/ hydrochlorothiazide, atenolol, and Norvasc. Qualifiers: Hypertension type: essential hypertension Qualified Code(s): I10 - Essential (primary) hypertension (6) COPD (chronic obstructive pulmonary disease) Current Visit: Yes Status: Chronic Assessment and plan: Hx of chronic COPD. Stable. Mild chronic cough that pt. reports is d/t COPD. Mild SOB most likely d/t current HCAP. Pt. received steroid in ED. Supplemental O2 w/titration and SpO2 monitoring. Xopenex IH 1.25 Q6HR. Qualifiers: COPD type: unspecified COPD Qualified Code(s): J44.9 - Chronic obstructive pulmonary disease, unspecified (7) Previous myocardial infarction older than 8 weeks Current Visit: Yes Status: Resolved Assessment and plan: Hx of previous [place] in 1983 w/o stent placement. Troponin <0.03. Denies CP or cardiac sx. (8) DVT prophylaxis Current Visit: Yes Status: Acute Assessment and plan: Heparin 5,000 units SQ Q8 for DVT prophylaxis. Monitor pt. for signs of bleeding. (9) Anemia Current Visit: Yes Status: Chronic Assessment and plan: Hx of chronic anemia. Denies unusual bleeding. Hgb 10.5 and Hct 33.7 on admission which is slightly lower than recent 11.7 on 01/04/18. Monitor H/H in a.m. labs. Fecal hemoccult ordered. Continue pts. iron supplement. Iron profile ordered. Qualifiers: Anemia type: unspecified type Qualified Code(s): D64.9 - Anemia, unspecified - Time Spent With Patient Total time spent is greater than 50% in coordination of care (as documented) at patient's floor/unit and/or counseling patient: 25 - 35 minutes <Lucas Cruz - Last Filed: 01/06/18 23:45> Date of Encounter: 01/06/18 Internal Medicine - H&P: HPI History of present illness: Mr. Lay is a 72 year old male All Systems PM: A 10-system review of systems was performed and is negative for pertinent findings except as documented above in the HPI. - Constitutional Vitals: Temp Pulse Resp BP Pulse Ox 98.5 F 101 16 116/70 97 01/06/18 23:15 01/06/18 23:15 01/06/18 23:15 01/06/18 23:15 01/06/18 23:15 Internal Med - H&P Results - Labs CBC & Chem 7: 01/06/18 10:38 01/06/18 10:38 - Attending Attestation I examined this patient and my medical decision-making was reviewed with the Resident Physician/MANAGER RETIREMENT. I agree with the documented findings, disposition and treatment plan as described except to the extent set forth below. Patient is a resident of nursing facility. Admitted with hospital-acquired pneumonia. Will start antibiotics as per guidelines. Close monitoring of the respiratory status. If patient does not clinically/serologically responding next 72 hours then please consider pulmonary evaluation. - Assessment and plan (1) COPD (chronic obstructive pulmonary disease) Current Visit: Yes Status: Chronic Qualifiers: COPD type: unspecified COPD Qualified Code(s): J44.9 - Chronic obstructive pulmonary disease, unspecified (2) Atrial fibrillation Current Visit: Yes Status: Chronic Qualifiers: Atrial fibrillation type: chronic Qualified Code(s): I48.2 - Chronic atrial fibrillation (3) HCAP (healthcare-associated pneumonia) Current Visit: Yes Status: Acute (4) HLD (hyperlipidemia) Current Visit: Yes Status: Chronic Qualifiers: Hyperlipidemia type: pure hypercholesterolemia Qualified Code(s): E78.00 - Pure hypercholesterolemia, unspecified; E78.0 - Pure hypercholesterolemia (5) HTN (hypertension) Current Visit: Yes Status: Chronic Qualifiers: Hypertension type: essential hypertension Qualified Code(s): I10 - Essential (primary) hypertension (6) Previous myocardial infarction older than 8 weeks Current Visit: Yes Status: Resolved (7) DVT prophylaxis Current Visit: Yes Status: Acute (8) Elevated TSH Current Visit: Yes Status: Acute (9) Anemia Current Visit: Yes Status: Chronic Qualifiers: Anemia type: unspecified type Qualified Code(s): D64.9 - Anemia, unspecified - Time Spent With Patient Total time spent is greater than 50% in coordination of care (as documented) at patient's floor/unit and/or counseling patient:
[2018-01-06] MEDS: Nicotine 14 MG PATCH.TD24 TD SCH (15:15)
[2018-01-06] MEDS: *HR* Heparin 5,000 UNIT/ML VIAL SQ SCH (15:16)
[2018-01-06] MEDS ORDERED: Piperacillin/Tazobactam 3.375 GM in 0.9 % Sodium Chloride Mini Bag 100 ML IVPB SCH ×2 (16:00→20:00)
[2018-01-06] MEDS: Levalbuterol Neb 1.25 MG/3 ML IH SCH ×2 (16:21→22:07)
[2018-01-06] MEDS: Diphenoxylate/Atropine 1 TAB TABLET PO SCH ×2 (16:37→19:43)
[2018-01-06] MEDS: Capsaicin 0.025% 60 GM TUBE TP SCH ×2 (18:21→19:45)
[2018-01-06] MEDS ORDERED: Levofloxacin 750 MG/150 ML 750 MG/150 ML BAG IVPB SCH (19:00)
[2018-01-06] MEDS: Finasteride 5 MG TABLET PO SCH (19:42)
[2018-01-06] MEDS: Lactobacillus 1 EACH CAP.SPRINK PO SCH (19:42)
[2018-01-06] MEDS: *HR* OxyCODONE Immed Rel 5 MG TABLET PO PRN (19:42)
[2018-01-06] MEDS: Budesonide/Formoterol 160/4.5 MDI IH SCH (22:08)
[2018-01-06] MEDS: Melatonin 3 MG TABLET PO PRN (23:31)
[2018-01-07] MEDS: *HR* Heparin 5,000 UNIT/ML VIAL SQ SCH ×3 (00:05→17:42)
[2018-01-07] MEDS: Piperacillin/Tazobactam 3.375 GM in 0.9 % Sodium Chloride Mini Bag 100 ML IVPB SCH ×4 (00:06→23:56)
[2018-01-07] MEDS: Levalbuterol Neb 1.25 MG/3 ML IH SCH ×4 (03:50→21:57)
[2018-01-07 05:48] LABS: Hematocrit 33.7 % (37.5-50.1); Hemoglobin 10.3 g/dL (12.9-16.9); Immature Granulocytes % 0.7 % (0-4); Lymphocytes # 0.5 K/mcL (0.6-4.6); Lymphocytes % 4.6 %; Mean Corpuscular HGB Conc 30.6 g/dL (31.6-35.5); Mean Corpuscular Hemoglobin 27.5 pg (28.0-33.3); Mean Corpuscular Volume 90.1 fL (83.0-100.0); Mean Platelet Volume 8.9 fL (9.4-12.4); Monocytes # 0.8 K/mcL (0.0-1.3); Monocytes % 7.4 %; Neutrophils # 9.3 K/mcL (1.6-8.9); Platelet Count 212 K/mcL (140-400); Red Blood Count 3.74 M/mcL (4.19-5.50); Red Cell Distribution Width 15.8 % (11.5-14.5); Segmented Neutrophils % 87.3 %
[2018-01-07 05:53] LABS: INR 1.2; Prothrombin Time 12.8 Seconds (9.4-12.1)
[2018-01-07 05:56] LABS: Activated Partial Thrombo Time 30.6 Seconds (26.0-36.0)
[2018-01-07 06:09] LABS: % Iron Saturation 11 % (20-55); Alanine Aminotransferase 24 Units/L (7-52); Albumin 3.4 g/dL (3.5-5.7); Albumin/Globulin Ratio 1.3 (1.1-2.2); Alkaline Phosphatase 37 Units/L (34-104); Aspartate Amino Transferase 16 Units/L (13-39); BUN/Creatinine Ratio 27 (6-26); Bilirubin,Total 0.6 mg/dL (0.3-1.0); Blood Urea Nitrogen 31 mg/dL (8-23); Calcium 8.6 mg/dL (8.6-10.3); Carbon Dioxide 34 mEq/L (23-29); Chloride 100 mEq/L (98-107); Chol/HDL Ratio 3.1 (0-4.9); Cholesterol 132 mg/dL (< 200); Globulin 2.7 g/dL (2.4-3.5); Glucose 134 mg/dL (70-105); HDL Cholesterol 43 mg/dL (40-59); Iron 37 mcg/dL (65-175); LDL Cholesterol,Calculated 74 mg/dL (0-99); Magnesium 1.8 mg/dL (1.6-2.6); Osmolality,Calculated 297 (280-300); Potassium 3.7 mEq/L (3.5-5.1); Sodium 139 mEq/L (136-145); Total Protein 6.1 g/dL (6.4-8.9); Transferrin 237 mg/dL (203-362); Triglycerides 75 mg/dL (< 150); eGFR For African Americans > 60 (> 60); eGFR For Non-African Americans > 60 (> 60)
[2018-01-07] MEDS: Aspirin 325 MG TABLET PO SCH (08:29)
[2018-01-07] MEDS: hydroCHLOROthiazide 25 MG TABLET PO SCH (08:29)
[2018-01-07] MEDS: Cholecalciferol (D-3) 1,000 UNIT TABLET PO SCH (08:29)
[2018-01-07] MEDS: Losartan/HCTZ 50-12.5 TABLET PO SCH (08:30)
[2018-01-07] MEDS: Multivit/Ca/Min/Fe/FA 1 TAB TABLET PO SCH (08:30)
[2018-01-07] MEDS: Loratadine 10 MG TABLET PO SCH (08:30)
[2018-01-07] MEDS: Famotidine 20 MG TABLET PO SCH (08:30)
[2018-01-07] MEDS: Lactobacillus 1 EACH CAP.SPRINK PO SCH ×2 (08:30→19:41)
[2018-01-07] MEDS: Nicotine 14 MG PATCH.TD24 TD SCH (08:30)
[2018-01-07] MEDS: Diphenoxylate/Atropine 1 TAB TABLET PO SCH ×4 (08:30→19:41)
[2018-01-07] MEDS: Capsaicin 0.025% 60 GM TUBE TP SCH ×3 (08:36→19:45)
[2018-01-07 08:38] LABS: Estimated Average Glucose 137 mg/dl; Hemoglobin A1C 6.4 %
[2018-01-07] MEDS ORDERED: levoFLOXacin 750 MG TABLET PO SCH (09:00)
[2018-01-07] MEDS ORDERED: amLODIPine 5 MG TABLET PO SCH (09:00)
[2018-01-07] MEDS: Budesonide/Formoterol 160/4.5 MDI IH SCH ×2 (09:33→21:59)
[2018-01-07] MEDS: Menthol 9.1 MG LOZENGE PO PRN ×3 (10:35→18:10)
--- NOTE | 2018-01-07 10:39 | Cardiology Consult Note ---
<Ren Simon - Last Filed: 01/07/18 13:36> Date of Encounter: 01/07/18 Time of Encounter: 10:36 Assessment and Plan (1) Atrial fibrillation Status: Chronic Patient had run of A. Fib with RVR at [facility] for about 8 seconds according to records Patient only complaint is mild shortness of breath and is currently being treated for hospital acquired pneumonia Not on anticoagulation. Patient states he has known about his A. Fib for years , doesn't know why he's not on anticoagulation EKG: atrial fibrillation rate of 95 Echo done today shows: Impressions: LVEF 45-50%. Low normal-mildly reduced LV systolic function. Normal LV chamber size and wall thickness. Indeterminate diastolic function. Normal right ventricular structure with mildly reduced function. Severely dilated left atrium. Mild pulmonary hypertension. No significant valvular dysfunction. Plan: - Start the patient on eliquis this evening 5mg BID, stop SQ heparin Q8H - Stop 100mg Atenolol daily, started 50mg atenolol BID - Stop Norvasc 5mg daily due to LE edema - Nuclear exercise stress test ordered for tomorrow Qualifiers: Atrial fibrillation type: chronic Qualified Code(s): I48.2 - Chronic atrial fibrillation Discussion w patient/family: The assessment and plan as outlined above was discussed with the patient and/or family members who expressed understanding and agreement. All questions were answered. Thank you for involving us in the care of your patient. Please call with any questions. History of Present Illness Consult date: 01/07/18 Requesting physician: Jone Dejesus Consult reason: anticoagulation for a fib Chief complaint: atrial fibrillation History of present illness: Mr. Lay is a 72 year old male with a past medical history of atrial fibrillation, COPD on 2 L nasal cannula when necessary, HLD, HTN, [place] in 1983 with no stents, and one pack per day smoker presenting to the emergency department initially for a run of A. fib that lasted about 8 seconds in the 150s. The patient was admitted for hospital acquired pneumonia which was seen on chest x-ray. The patient denies any symptoms except for mild increase in shortness of breath over the past 2-3 days. He denies any chest pain, palpitations, nausea, vomiting, lower extremity edema or any other associated symptoms. Cardiology was consulted because the patient is not on anticoagulation. Past Med Surg Social Fam HX - Past Medical History Medical history: arthritis, atrial fibrillation, COPD, hyperlipidemia, hypertension, myocardial infarction (In 1983, no stents placed), other Psychiatric history: no psych history, other - Past Surgical History Surgical History: non-contributory - Social History Smoking Status: Current every day smoker Packs per day: 1 PPD Smokeless Tobacco Status: No Alcohol use: none Drug use: none - Family History Father Race: Family Member Ethnicity: Non- Living Status: Age at : 83 Cause of : Old age Hx Family Cardiac Disorders: Yes (HD) Mother Race: Family Member Ethnicity: Non- Living Status: Age at : 83 Cause of : Old age Sister Race: Family Member Ethnicity: Non- Living Status: Age at : 80 Cause of : [place] Hx Family Cardiac Disorders: Yes ([place], HD) Medications and Allergies Albuterol Sulfate [Albuterol Inhaler] 2 puff IH Q4HR PRN 12/16/16 [History] Ascorbate Calcium [Vitamin C] 500 mg PO DAILY 12/16/16 [History] Aspirin 325 mg PO DAILY 12/16/16 [History] Atenolol 100 mg PO DAILY 12/16/16 [History] Budesonide/Formoterol 160/4.5 [Symbicort 160/4.5] 2 puff IH BIDR 12/16/16 [ History] Capsaicin 0.025% [Trixaicin] 1 appl TP TID 12/16/16 [History] Cholecalciferol (D-3) [Vitamin D] 2,000 unit PO DAILY 12/16/16 [History] Diphenoxylate/Atropine [Lomotil 2.5 mg/0.025 mg] 2 each PO QID 12/16/16 [History ] Donepezil [Aricept] 10 mg PO HS 12/16/16 [History] Ferrous Sulfate [Iron] 325 mg PO DAILY 12/16/16 [History] Fexofenadine HCl [Allergy Relief] 180 mg PO DAILY 12/16/16 [History] Finasteride [Proscar] 5 mg PO HS 12/16/16 [History] GuaiFENesin/Dextromethorphan [Robitussin Cough-Chest Dm Liq] 10 ml PO Q4H PRN [History] Hydrocortisone 1% CREAM [Cortaid] 1 appl TP DAILY PRN 12/16/16 [History] Ipratropium/Albuterol Neb [Duoneb] 3 ml IH Q6HR PRN 12/16/16 [History] Loperamide [Imodium] 2 mg PO QID PRN 12/16/16 [History] Losartan/Hydrochlorothiazide [Hyzaar 100-25 Tablet] 1 each PO DAILY 12/16/16 [ History] Multivit,Th Iron,Other Min [Therems-H] 1 each PO DAILY 12/16/16 [History] Multivitamin [One Daily Essential] 1 each PO DAILY 12/16/16 [History] Simvastatin [Zocor] 40 mg PO HS 12/16/16 [History] Tamsulosin [Flomax] 0.4 mg PO HS 12/16/16 [History] Tizanidine HCl 4 mg PO Q8H PRN 12/16/16 [History] amLODIPine [Norvasc] 5 mg PO DAILY 12/16/16 [History] hydroCHLOROthiazide [Hydrochlorothiazide] 12.5 mg PO DAILY 12/16/16 [History] Cimetidine 200 mg PO DAILY 11/11/17 [History] Lactobacillus [Culturelle] 2 each PO BID 11/11/17 [History] Memantine [Namenda] 5 mg PO DAILY 11/11/17 [History] Sertraline [Zoloft] 25 mg PO DAILY 11/11/17 [History] Bismuth Subsalicylate [Pepto-Bismol] 524 mg PO QID PRN 01/06/18 [History] Apixaban [Eliquis] 5 mg PO BID #30 tablet 01/09/18 [Rx] Guaifenesin [Mucus Relief] 600 mg PO BID PRN #0 01/09/18 [Rx] Melatonin 3 mg PO HS PRN tablet 01/09/18 [Rx] Menthol [Cough Drops] 9.1 mg PO Q2H PRN lozenge 01/09/18 [Rx] Methyl Salicylate/Menthol [Bengay] 1 appl TP BID PRN tube 01/09/18 [Rx] OxyCODONE Immed Rel [Roxicodone 5 MG] 5 - 10 mg PO Q6HR PRN 1 Days #4 tablet 04/ 15/18 [Rx] 3 Allergy/AdvReac Type Severity Reaction Status Date / Time No Known Allergies Allergy Verified 01/06/18 12:32 All Systems Review: The remainder of the systems were reviewed and are negative - Cardiovascular Cardiovascular: rapid heart rate, no chest pain at rest, no chest pain with exertion, no diaphoresis, no leg edema, no lightheadedness - Respiratory Respiratory: dyspnea - Gastrointestinal Gastrointestinal: no nausea Physical Examination Vital Signs, Last 4 Hours Resp Pulse Ox 01/07/18 09:34 14 95 General: Conversant, No Apparent Distress HEENT: Atraumatic, Normocephaly, Mucus Membranes Moist Neck: No JVD, Normal carotid pulses Cardiac: Reg Rate and Rhythm, Normal S1 and S2, No Murmur Lungs: Other (ronchi in the RLL, mild expiratory wheezes throuhgout) Neuro: Alert and responsive, No focal deficits noted Abdomen: Soft, Non-Tender Skin: No rashes noted on visualized skin Musculoskeletal: No Chest Wall Tenderness Extremities: No Clubbing, No Cyanosis, No Edema, Normal Pulses Results 01/07/18 05:33 01/07/18 05:33 Lab Results 01/07/18 01/07/18 01/07/18 05:33 05:33 05:33 WBC 10.7 Hgb 10.3 L Hct 33.7 L Plt Count 212 INR 1.2 APTT 30.6 Sodium 139 Potassium 3.7 Chloride 100 Carbon Dioxide 34 H BUN 31 H Creatinine 1.16 Glucose 134 H Calcium 8.6 Magnesium 1.8 Total Bilirubin 0.6 AST 16 ALT 24 Alkaline Phosphatase 37 - Imaging and Cardiology Echo: report reviewed - EKG Interpretation EKG results cardiology: personally reviewed, no diagnostic ischemia, other (a fib rate in the 90's) Consult Discharge Plan - Plan Instructions: Apixaban (By mouth) Additional Instructions: Pt will need repeat H and H in 3 days. Referrals: August Montejo MD [Primary Care Provider] - (Patient should follow up with primary care physician 7-10 days.) Prescriptions: OxyCODONE Immed Rel [Roxicodone 5 MG] 5 - 10 mg PO Q6HR PRN 1 Days #4 tablet PRN Reason: Pain Apixaban [Eliquis] 5 mg PO BID #30 tablet <Jean Li - Last Filed: 04/17/18 20:07> Date of Encounter: 01/07/18 Time of Encounter: 19:40 - Attending Attestation I have personally performed a face to face evaluation on this patient. I have reviewed and agree with the care plan. History and Exam by me shows: CC: Shortness of breath Pt admitted to for pneumonia, found to to have runs of A fib with RVR, pt is asymptomatic. He is not a reliable historian. PMH: Reviewed IMP; 1. PAF: unknown duration, ventricular response not well controlled on atenolol once daily, split dose to bid, monitor heart rate response. Will DC sub cut heparin, begin Eliqius 5 mg bid. 2. lower ext edema: DC norvasc, monitor bp response 3. Abnormal echocardiogram with decreased LV systolic function, lexiscan cardiolyte stress imaging to eval ischemic substrate as etiology of LV systolic impairment. Assessment and Plan Discussion w patient/family: The assessment and plan as outlined above was discussed with the patient and/or family members who expressed understanding and agreement. All questions were answered. Thank you for involving us in the care of your patient. Please call with any questions. History of Present Illness History of present illness: Mr. Lay is a 72 year old male All Systems Review: The remainder of the systems were reviewed and are negative Results 01/09/18 04:18 01/09/18 11:42
--- NOTE | 2018-01-07 19:01 | Internal Med Progress Note ---
Date of Encounter: 01/07/18 Time of Encounter: 10:00 - Assessment and plan (1) COPD (chronic obstructive pulmonary disease) Current Visit: Yes Status: Chronic Assessment and plan: Chronic. Mild exacerbation exacerbated by HCAP. Continue albuterol inhaler, Symbicort, Mucinex, Xopenex nebulizers, pulse cough drops per patient request, Zosyn and vancomycin IV. Continue telemetry Continue O2 as needed to maintain sats greater than 92% Pulse ox with vitals. H Qualifiers: COPD type: unspecified COPD Qualified Code(s): J44.9 - Chronic obstructive pulmonary disease, unspecified (2) Atrial fibrillation Current Visit: Yes Status: Chronic Assessment and plan: Patient denies chest pain, pressure, palpitations, shortness of breath related cardiac symptoms. Rate controlled. Patient has been placed on Eliquis. He has not been on anticoagulation in the past. Echocardiogram shows LVEF of 45-50%, mildly reduced LV systolic function, indeterminant diastolic function severely dilated left atrium, no significant valvular dysfunction. Stop subcutaneous heparin since patient has started oral anticoagulation. Atenolol changed from 100 mg daily to 50 mg twice daily. Norvasc has been stopped due to bilateral lower extremity edema. Cardiology has ordered a stress test for tomorrow. Cardiology following, I appreciate their recommendation consultation. Qualifiers: Atrial fibrillation type: chronic Qualified Code(s): I48.2 - Chronic atrial fibrillation (3) HCAP (healthcare-associated pneumonia) Current Visit: Yes Status: Acute Assessment and plan: Patient resides at [facility]. Chest x-ray shows right mid lung consolidation, patchy airspace up a 60 right lower lung. Findings are concerning for multiple infiltrates. Management as above for COPD. Chest X-Ray 01/06/18 10:29 IMPRESSION: Consolidation to the right mid lung zone predominantly peripherally along with more mild streaky/patchy airspace opacities to the right lower lung zone. Findings are concerning for multifocal infiltrates. Other etiologies not excluded. Clinical correlation and continued follow-up to resolution recommended. D/ / 01/06/2018 10:46:41 Frank Dean MD / [facility] Interpreting Provider: Frank Dean MD (4) HLD (hyperlipidemia) Current Visit: Yes Status: Chronic Assessment and plan: Chronic. Lipid panel WNL. Continue pts. Zocor. Qualifiers: Hyperlipidemia type: pure hypercholesterolemia Qualified Code(s): E78.00 - Pure hypercholesterolemia, unspecified; E78.0 - Pure hypercholesterolemia (5) HTN (hypertension) Current Visit: Yes Status: Chronic Assessment and plan: Norvasc has been stopped due to lower extremity edema. Atenolol has been changed to twice a day from daily. Continue Hyzaar 50/12.5 Qualifiers: Hypertension type: essential hypertension Qualified Code(s): I10 - Essential (primary) hypertension (6) Previous myocardial infarction older than 8 weeks Current Visit: Yes Status: Resolved Assessment and plan: Chronic. IN 1983. No intervention. Troponin <0.03. Denies CP or cardiac sx. Continue telemetry (7) DVT prophylaxis Current Visit: Yes Status: Acute Assessment and plan: Heparin SQ has been stopped. Eliquis started on recommendation of cardiology. (8) Elevated TSH Current Visit: Yes Status: Acute Assessment and plan: TSH elevated. Follow with primary care for recheck in 4-6 weeks. (9) Anemia Current Visit: Yes Status: Chronic Assessment and plan: Neck. Stable. Iron low 37, percent sat 11. Continue iron supplementation and monitor labs. Stool occult blood is ordered and still pending. Qualifiers: Anemia type: unspecified type Qualified Code(s): D64.9 - Anemia, unspecified - Time Spent With Patient Total time spent is greater than 50% in coordination of care (as documented) at patient's floor/unit and/or counseling patient: less than 15 minutes - Subjective Interval history: Patient was seen and assessed the bedside at 10 AM. He is alert, awake, oriented. He states he does not want to be here and is ready to go back to the care home. I discussed plan of care with patient, he states that he cannot get any of the nurses to care for him and is requesting a newspaper from the [email or web address] as well as cough drops. Both were obtained for the patient. Patient appears to be a poor historian, does not answer questions, does not make eye contact, does not appear to want to talk. He did deny headache, blurred vision , chest pain, abdominal pain. Patient has +3 pitting edema to bilateral lower extremities, he states that this is normal for him and actually improved over normal. - Constitutional Vitals: Temp Pulse Resp BP Pulse Ox 98.1 F 82 16 114/73 95 01/07/18 18:54 01/07/18 18:54 01/07/18 18:54 01/07/18 18:54 01/07/18 18:54 General appearance: Present: cooperative, A&O X 3, pleasant, no acute distress, obese, answers questions appropriately - Head Head exam: Present: atraumatic, normal inspection, normocephalic - Eye Eye exam: Present: normal appearance, conjuntiva pink, sclera anicteric - Neck Neck exam general surgery: Present: normal inspection, supple, trachea midline. Absent: lymphadenopathy, tenderness - Respiratory Respiratory exam: Present: decreased breath sounds, CTAB. Absent: accessory muscle use, rales, respiratory distress, rhonchi, wheezes - Cardiovascular Cardiovascular exam: Present: RRR, +S1, +S2. Absent: diastolic murmur, gallop, rubs, systolic murmur - GI/Abdominal GI/Abdominal exam: Present: normal bowel sounds, soft. Absent: distended, tenderness - Extremities Exam Extremities exam: Present: pedal edema, warm, radial pulses palpable and symmetrical. Absent: calf tenderness, cyanotic - Neurological Exam Neurological exam: Present: alert, oriented X3, no focal deficits. Absent: facial droop, speech deficit - Skin Skin exam: Present: dry, intact, normal color, warm. Absent: rash Internal Medicine: Result - Labs CBC & Chem 7: 01/07/18 05:33 01/07/18 05:33 Labs: Short CBC 01/07/18 Range/Units 05:33 WBC 10.7 (4.3-11.1) K/mcL Hgb 10.3 L (12.9-16.9) g/dL Hct 33.7 L (37.5-50.1) % Plt Count 212 (140-400) K/mcL Neutrophils # 9.3 H (1.6-8.9) K/mcL BMP 01/07/18 05:33 Sodium 139 Potassium 3.7 Chloride 100 Carbon Dioxide 34 H BUN 31 H Creatinine 1.16 Glucose 134 H Calcium 8.6 Liver Function 01/07/18 Range/Units 05:33 Total Bilirubin 0.6 (0.3-1.0) mg/dL AST 16 (13-39) Units/L ALT 24 (7-52) Units/L Alkaline Phosphatase 37 (34-104) Units/L Albumin 3.4 L (3.5-5.7) g/dL - ABG Interpretation ABG results: PT/INR, D-dimer PT 12.8 Seconds (9.4-12.1) H 01/07/18 05:33 - Impressions Impressions Echocardiogram 01/07/18 13:51 Impressions: LVEF 45-50%. Low normal-mildly reduced LV systolic function. Normal LV chamber size and wall thickness. Indeterminate diastolic function. Normal right ventricular structure with mildly reduced function. Severely dilated left atrium. Mild pulmonary hypertension. No significant valvular dysfunction. Left Ventricular Wall Motion: Rest Echo Findings The apex, apical inferior, mid inferior, basal inferior, apical anterior, mid anterior, basal anterior, apical septal, mid inferior septal, basal inferior septal, apical lateral, mid anterior lateral, basal anterior lateral, mid anterior septal, mid inferior lateral, basal anterior septal and basal inferior lateral coy were hypokinetic. Findings: Study Quality * Technically adequate exam. ECG Findings * Atrial fibrillation. Left Ventricle * LVEF 45-50%. Low normal-mildly reduced LV systolic function. * Normal LV chamber size and wall thickness. * Indeterminate diastolic function. Right Ventricle * Normal right ventricular structure with mildly reduced function. Right Atrium * Moderately dilated right atrium. Left Atrium * Severely dilated left atrium. Aortic Valve * Trileaflet aortic valve with normal function. * No aortic regurgitation. * No aortic stenosis. Mitral Valve * Normal mitral valve structure and function. * No mitral stenosis. * Trace mitral regurgitation. Tricuspid Valve * Normal tricuspid valve structure and function. * Trace tricuspid regurgitation. * Mild pulmonary hypertension. Pulmonic Valve * Normal pulmonic valve structure and function. * Trace pulmonic regurgitation. Aorta * Normally sized aortic root. Pericardium * The pericardium appears normal. IVC * Normal IVC dimensions and inspiratory collapse. Pulmonary Artery * Normal visualized portions of the main pulmonary artery. Consult Discharge Plan - Plan Referrals: August Montejo MD [Primary Care Provider] -
[2018-01-07] MEDS: Finasteride 5 MG TABLET PO SCH (19:41)
[2018-01-07] MEDS: Apixaban 5 MG TABLET PO SCH (19:42)
[2018-01-07] MEDS: Methyl Salicylate/Menthol 28 GM TUBE TP PRN (23:55)
[2018-01-08] MEDS: Levalbuterol Neb 1.25 MG/3 ML IH SCH ×4 (03:06→22:09)
[2018-01-08 06:02] LABS: Basophils % 0.2 %; Eosinophils # 0.2 K/mcL (0.0-0.6); Eosinophils % 1.4 %; Hematocrit 35.8 % (37.5-50.1); Hemoglobin 10.7 g/dL (12.9-16.9); Immature Granulocytes % 0.8 % (0-4); Lymphocytes # 0.7 K/mcL (0.6-4.6); Lymphocytes % 5.6 %; Mean Corpuscular HGB Conc 29.9 g/dL (31.6-35.5); Mean Corpuscular Hemoglobin 27.7 pg (28.0-33.3); Mean Corpuscular Volume 92.7 fL (83.0-100.0); Mean Platelet Volume 9.6 fL (9.4-12.4); Monocytes # 0.9 K/mcL (0.0-1.3); Monocytes % 7.8 %; Platelet Count 222 K/mcL (140-400); Red Blood Count 3.86 M/mcL (4.19-5.50); Red Cell Distribution Width 15.9 % (11.5-14.5); Segmented Neutrophils % 84.2 %
[2018-01-08 06:25] LABS: Alanine Aminotransferase 25 Units/L (7-52); Albumin 3.5 g/dL (3.5-5.7); Albumin/Globulin Ratio 1.3 (1.1-2.2); Alkaline Phosphatase 39 Units/L (34-104); Aspartate Amino Transferase 17 Units/L (13-39); BUN/Creatinine Ratio 27 (6-26); Bilirubin,Total 0.7 mg/dL (0.3-1.0); Blood Urea Nitrogen 29 mg/dL (8-23); Calcium 8.9 mg/dL (8.6-10.3); Carbon Dioxide 37 mEq/L (23-29); Chloride 99 mEq/L (98-107); Globulin 2.7 g/dL (2.4-3.5); Glucose 100 mg/dL (70-105); Osmolality,Calculated 296 (280-300); Potassium 3.7 mEq/L (3.5-5.1); Sodium 140 mEq/L (136-145); Total Protein 6.2 g/dL (6.4-8.9); eGFR For African Americans > 60 (> 60); eGFR For Non-African Americans > 60 (> 60)
--- NOTE | 2018-01-08 06:57 | Electrocardiograph Report ---
[facility] [employer] Test Date: 2018-01-06 Pat Name: Dariel Lay Department: 103 Room: 3B41 Gender: M [employer]ist: : 1945 Requested By: Justice Shrestha Order Number: [id number] Reading MD: Leon Fair Measurements Intervals [place] Rate: 95 P: DC: 0 QRS: 61 QRSD: 94 T: 24 QT: 370 QTc: 422 Interpretive Statements ATRIAL FIBRILLATION MINIMAL ST DEPRESSION [0.025+ mV ST DEPRESSION] ABNORMAL RHYTHM ECG Electronically Signed On 01-08-2018 6:55:35 EDT by Leon Fair
[2018-01-08 08:34] LABS: Troponin I 0.03 ng/mL (< 0.04)
[2018-01-08] MEDS: Diphenoxylate/Atropine 1 TAB TABLET PO SCH ×4 (08:34→20:55)
[2018-01-08] MEDS: hydroCHLOROthiazide 25 MG TABLET PO SCH (08:34)
[2018-01-08] MEDS: Nicotine 14 MG PATCH.TD24 TD SCH (08:34)
[2018-01-08] MEDS: Cholecalciferol (D-3) 1,000 UNIT TABLET PO SCH (08:34)
[2018-01-08] MEDS: Aspirin 325 MG TABLET PO SCH (08:34)
[2018-01-08] MEDS: Losartan/HCTZ 50-12.5 TABLET PO SCH (08:35)
[2018-01-08] MEDS: Famotidine 20 MG TABLET PO SCH (08:35)
[2018-01-08] MEDS: Lactobacillus 1 EACH CAP.SPRINK PO SCH ×2 (08:35→20:55)
[2018-01-08] MEDS: Multivit/Ca/Min/Fe/FA 1 TAB TABLET PO SCH (08:35)
[2018-01-08] MEDS: Apixaban 5 MG TABLET PO SCH ×2 (08:35→20:55)
[2018-01-08] MEDS: Loratadine 10 MG TABLET PO SCH (08:36)
[2018-01-08] MEDS: Piperacillin/Tazobactam 3.375 GM in 0.9 % Sodium Chloride Mini Bag 100 ML IVPB SCH ×3 (08:40→23:20)
[2018-01-08] MEDS: Capsaicin 0.025% 60 GM TUBE TP SCH ×3 (08:47→21:11)
[2018-01-08] MEDS: Budesonide/Formoterol 160/4.5 MDI IH SCH ×2 (10:27→20:06)
--- NOTE | 2018-01-08 10:34 | Cardiology Progress Note ---
Date of Encounter: 01/08/18 Time of Encounter: 10:00 Assessment and Plan (1) Atrial fibrillation Current Visit: Yes Status: Chronic Patient had run of A. Fib with RVR at [facility] for about 8 seconds according to records Patient only complaint is mild shortness of breath and is currently being treated for hospital acquired pneumonia Not on anticoagulation. Patient states he has known about his A. Fib for years , doesn't know why he's not on anticoagulation EKG: atrial fibrillation rate of 95 TTE: LVEF 45-50%.Low normal-mildly reduced LV systolic function.Indeterminate diastolic function.Normal right ventricular structure with mildly reduced function, Severely dilated left atrium.Mild pulmonary hypertension.No significant valvular dysfunction. Stress recommended, patient declined--will consider as outpatient. He is demanding discharge. Rate is controlled, continue BB. Started on Eliquis for AC. Cardiology will sign-off, will arrange for outpatient f/u. Qualifiers: Atrial fibrillation type: chronic Qualified Code(s): I48.2 - Chronic atrial fibrillation Discussion w patient/family: The assessment and plan as outlined above was discussed with the patient and/or family members who expressed understanding and agreement. All questions were answered. Thank you for involving us in the care of your patient. Please call with any questions. The patient was discussed and reviewed with Dr. Li who agrees with plan as stated above. Cardiology will sign-off. Subjective Principal diagnosis: Afib Interval history: Seen and examined. Refuses stress test. Denies chest pain/discomfort, palpitations, or any other CV symptoms. Wants to go home. Objective Vital Signs, Last 4 Hours Temp Pulse Resp BP Pulse Ox 01/08/18 06:52 98.3 F 94 16 135/95 90 General: Conversant, No Apparent Distress HEENT: Atraumatic, Normocephaly, Mucus Membranes Moist Cardiac: Other (irregularly irregular) Lungs: Other (decreased) Neuro: Alert and responsive Abdomen: Soft Skin: No rashes noted on visualized skin Musculoskeletal: No Chest Wall Tenderness Extremities: Other (+1-2 BLE edema) Results 01/08/18 04:40 01/08/18 04:40 Lab Results 01/08/18 01/08/18 01/08/18 04:40 04:40 04:40 WBC 11.9 H Hgb 10.7 L Hct 35.8 L Plt Count 222 Sodium 140 Potassium 3.7 Chloride 99 Carbon Dioxide 37 H BUN 29 H Creatinine 1.08 Glucose 100 Calcium 8.9 Total Bilirubin 0.7 AST 17 ALT 25 Alkaline Phosphatase 39 Troponin I 0.03 B-Natriuretic Peptide 262 H Active Medications Acetaminophen (Tylenol) 650 mg PO Q6HR PRN PRN Reason: Mild Pain/Fever Stop: 07/08/18 13:19 Albuterol Sulfate (Albuterol Inhaler) 2 puff IH Q4HR PRN PRN Reason: Shortness Of Breath Stop: 07/08/18 13:55 Apixaban (Eliquis) 5 mg PO BID [facility] Stop: 07/09/18 21:01 Last Admin: 01/08/18 08:35 Dose: 5 mg Aspirin (Aspirin) 325 mg PO DAILY [facility] Stop: 07/09/18 09:01 Last Admin: 01/08/18 08:34 Dose: 325 mg Atenolol (Tenormin) 50 mg PO BID [facility] Stop: 07/09/18 21:01 Last Admin: 01/08/18 08:35 Dose: 50 mg Budesonide/Formoterol Fumarate (Symbicort) 2 puff IH BIDR [facility] PRN Reason: Protocol Stop: 07/08/18 22:01 Last Admin: 01/08/18 10:27 Dose: Not Given Capsaicin (Trixaicin) 1 appl TP TID [facility] Stop: 07/08/18 15:01 Last Admin: 01/08/18 08:47 Dose: Not Given Diphenoxylate HCl/Atropine (Lomotil 2.5 Mg/0.025 Mg) 2 tab PO QID [facility] Stop: 07/08/18 17:01 Last Admin: 01/08/18 08:34 Dose: 2 tab Donepezil HCl (Aricept) 10 mg PO HS [facility] Stop: 07/08/18 21:01 Last Admin: 01/07/18 19:41 Dose: 10 mg Famotidine (Pepcid) 10 mg PO DAILY [facility] Stop: 07/09/18 09:01 Last Admin: 01/08/18 08:35 Dose: 10 mg Ferrous Sulfate (Ferrous Sulfate) 325 mg PO DAILY [facility] Stop: 07/09/18 09:01 Last Admin: 01/08/18 08:34 Dose: 325 mg Finasteride (Proscar) 5 mg PO HS [facility] PRN Reason: Protocol Stop: 07/08/18 21:01 Last Admin: 01/07/18 19:41 Dose: 5 mg Guaifenesin (Mucinex) 600 mg PO BID PRN PRN Reason: Congestion Stop: 07/08/18 13:51 Last Admin: 01/07/18 19:45 Dose: 600 mg Guaifenesin (Robitussin Liq) 400 mg PO TID PRN PRN Reason: Congestion Guaifenesin (Robitussin/Dm) 10 ml PO Q4H PRN PRN Reason: Cough HCTZ/Losartan Potassium (Hyzaar 50/12.5) 2 each PO DAILY [facility] Stop: 07/09/18 09:01 Last Admin: 01/08/18 08:35 Dose: 2 each Hydrochlorothiazide (Hydrochlorothiazide) 12.5 mg PO DAILY [facility] Stop: 07/09/18 09:01 Last Admin: 01/08/18 08:34 Dose: 12.5 mg Hydrocortisone (Cortaid) 1 appl TP DAILY PRN; Protocol PRN Reason: Itching Stop: 07/08/18 13:55 Piperacillin Sod/Tazobactam (Sod 3.375 gm/ Sodium Chloride) 100 mls @ 25 mls/ hr IVPB Q8H ROBB Stop: 07/09/18 00:01 Last Admin: 01/08/18 08:40 Dose: 25 mls/hr Vancomycin HCl 1,500 mg/ (Sodium Chloride) 250 mls @ 166.67 mls/hr IVPB Q24H ROBB Stop: 07/10/18 00:01 Last Admin: 01/07/18 23:56 Dose: 166.67 mls/hr Levofloxacin/Dextrose (Levaquin Premix 750mg/150 Ml) 750 mg in 150 mls @ 100 mls/hr IVPB Q48H ROBB PRN Reason: Protocol Stop: 07/10/18 19:01 Lactobacillus Acidophilus/Rhamnosus (Culturelle) 2 each PO BID [facility]B Stop: 07/08/18 21:01 Last Admin: 01/08/18 08:35 Dose: 2 each Levalbuterol HCl (Xopenex) 1.25 mg IH [id number] [facility]B Stop: 07/08/18 16:01 Last Admin: 01/08/18 10:19 Dose: 1.25 mg Loratadine (Claritin) 10 mg PO DAILY [facility] Stop: 07/09/18 09:01 Last Admin: 01/08/18 08:36 Dose: 10 mg Melatonin (Melatonin) 3 mg PO HS PRN PRN Reason: Insomnia Stop: 07/08/18 23:13 Last Admin: 01/06/18 23:31 Dose: 3 mg Memantine (Namenda) 5 mg PO DAILY [facility] Stop: 07/09/18 09:01 Last Admin: 01/08/18 08:36 Dose: 5 mg Menthol (Cough Drops) 9.1 mg PO Q2H PRN PRN Reason: Cough Stop: 07/09/18 10:09 Last Admin: 01/07/18 18:10 Dose: 9.1 mg Menthol/Methyl Salicylate (Bengay) 1 appl TP BID PRN PRN Reason: neck pain PRN Stop: 07/09/18 22:45 Last Admin: 01/07/18 23:55 Dose: 1 appl Multivitamins/Calcium (Thera M Plus) 1 tab PO DAILY ROBB Stop: 07/09/18 09:01 Last Admin: 01/08/18 08:35 Dose: 1 tab Naloxone HCl (Narcan) 0.4 mg IVP Q2MIN PRN PRN Reason: SEE COMMENTS Stop: 07/08/18 13:19 Nicotine (Nicoderm) 14 mg TD DAILY ROBB PRN Reason: Protocol Stop: 07/08/18 14:01 Last Admin: 01/08/18 08:34 Dose: 14 mg Oxycodone HCl (Roxicodone) 5 mg PO Q6HR PRN; Protocol PRN Reason: Severe Pain Stop: 07/08/18 13:55 Last Admin: 01/06/18 19:42 Dose: 5 mg Sertraline HCl (Zoloft) 25 mg PO DAILY ROBB Stop: 07/09/18 09:01 Last Admin: 01/08/18 08:36 Dose: 25 mg Simvastatin (Zocor) 40 mg PO HS ROBB PRN Reason: Protocol Stop: 07/08/18 21:01 Last Admin: 01/07/18 19:41 Dose: 40 mg Tamsulosin HCl (Flomax) 0.4 mg PO HS ROBB PRN Reason: Protocol Stop: 07/08/18 21:01 Last Admin: 01/07/18 19:41 Dose: 0.4 mg Tizanidine HCl (Zanaflex) 4 mg PO Q8H PRN PRN Reason: Muscle Spasm Stop: 07/08/18 13:55 Vitamin D (Vitamin D) 2,000 unit PO DAILY ROBB Stop: 07/09/18 09:01 Last Admin: 01/08/18 08:34 Dose: 2,000 unit - Imaging and Cardiology Other Results: 12 hour tele: avg HR=89 afib. - EKG Interpretation EKG results cardiology: personally reviewed Consult Discharge Plan - Plan Referrals: August Montejo MD [Primary Care Provider] -
--- NOTE | 2018-01-08 11:24 | Internal Med Progress Note ---
Date of Encounter: 01/08/18 Time of Encounter: 10:10 - Assessment and plan (1) COPD (chronic obstructive pulmonary disease) Current Visit: Yes Status: Chronic Assessment and plan: Mild exacerbation exacerbated by HCAP. Patient is improving. Continue albuterol inhaler, Symbicort, Mucinex, Xopenex nebulizers Zosyn and vancomycin IV. Likely discharge tomorrow. Continue telemetry Continue O2 as needed to maintain sats greater than 92% Pulse ox with vitals. Qualifiers: COPD type: unspecified COPD Qualified Code(s): J44.9 - Chronic obstructive pulmonary disease, unspecified (2) Atrial fibrillation Current Visit: Yes Status: Chronic Assessment and plan: Rate controlled. Patient has been placed on Eliquis, will continue after discharge. He has not been on anticoagulation in the past. Echocardiogram shows LVEF of 45-50%, mildly reduced LV systolic function, indeterminant diastolic function severely dilated left atrium, no significant valvular dysfunction. Norvasc has been stopped due to edema, beta melba is now on a divided dose. Continue. Patient refused stress test this morning. Cardiology has signed off. Patient will have outpatient follow-up after discharge. Qualifiers: Atrial fibrillation type: chronic Qualified Code(s): I48.2 - Chronic atrial fibrillation (3) HCAP (healthcare-associated pneumonia) Current Visit: Yes Status: Acute Assessment and plan: Patient resides at [facility]. Chest x-ray shows right mid lung consolidation, patchy airspace opacity lower lung. Findings are concerning for multiple infiltrates. Management as above for COPD. Chest X-Ray 01/06/18 10:29 IMPRESSION: Consolidation to the right mid lung zone predominantly peripherally along with more mild streaky/patchy airspace opacities to the right lower lung zone. Findings are concerning for multifocal infiltrates. Other etiologies not excluded. Clinical correlation and continued follow-up to resolution recommended. D/ / 01/06/2018 10:46:41 Frank Dean MD / [facility] Interpreting Provider: Frank Dean MD (4) HLD (hyperlipidemia) Current Visit: Yes Status: Chronic Assessment and plan: Chronic. Continue home medications. Qualifiers: Hyperlipidemia type: pure hypercholesterolemia Qualified Code(s): E78.00 - Pure hypercholesterolemia, unspecified; E78.0 - Pure hypercholesterolemia (5) HTN (hypertension) Current Visit: Yes Status: Chronic Assessment and plan: Norvasc has been stopped due to lower extremity edema. Atenolol has been changed to twice a day from daily. Continue Hyzaar 50/12.5 Monitor vitals per admission orders. Qualifiers: Hypertension type: essential hypertension Qualified Code(s): I10 - Essential (primary) hypertension (6) Previous myocardial infarction older than 8 weeks Current Visit: Yes Status: Chronic Assessment and plan: Chronic. CT 1983. No intervention. Troponin negative. Denies CP or cardiac sx. Continue telemetry (7) DVT prophylaxis Current Visit: Yes Status: Acute Assessment and plan: Pt on Eliquis. (8) Elevated TSH Current Visit: Yes Status: Acute Assessment and plan: TSH elevated. Follow with primary care for recheck in 4-6 weeks when no longer acutely ill. Pt denies prior history of thyroid disease. (9) Anemia Current Visit: Yes Status: Chronic Assessment and plan: Stable. Iron low 37, percent sat 11. Continue iron supplementation and monitor labs. Stool occult blood is ordered and still pending again today. Qualifiers: Anemia type: unspecified type Qualified Code(s): D64.9 - Anemia, unspecified (10) Acute respiratory failure Current Visit: Yes Status: Acute Assessment and plan: Patient denies oxygen use prior to admission. Secondary to HCAP and COPD exacerbation. Pt requiring supplemental 02 to maintain sats > 92%. Titrate as needed. Qualifiers: Respiratory failure complication: unspecified whether with hypoxia or hypercapnia Qualified Code(s): J96.00 - Acute respiratory failure, unspecified whether with hypoxia or hypercapnia (11) Obesity (BMI 30.0-34.9) Current Visit: Yes Status: Chronic Assessment and plan: Chronic. Lifestyle modifications. - Time Spent With Patient Total time spent is greater than 50% in coordination of care (as documented) at patient's floor/unit and/or counseling patient: less than 15 minutes - Subjective Interval history: Patient was seen and assessed the bedside at 1010 AM. He is alert, awake, oriented, pleasant. He denies headache, blurred vision, chest pain, abdominal pain. Patient has +2 pitting edema to bilateral lower extremities, he states that this is normal for him and actually improved over normal, slightly improved since yesterday. Patient refused stress test this morning, states the last one was killed him and he was unable to breathe and had chest pain. Likely looking at discharge tomorrow as long as labs and patient remains stable. - Constitutional Vitals: Temp Pulse Resp BP Pulse Ox 98.0 F 80 16 146/69 96 01/08/18 10:44 01/08/18 10:44 01/08/18 10:44 01/08/18 10:44 01/08/18 10:44 General appearance: Present: cooperative, A&O X 3, pleasant, no acute distress, obese, answers questions appropriately - Head Head exam: Present: atraumatic, normal inspection, normocephalic - Eye Eye exam: Present: normal appearance, conjuntiva pink, sclera anicteric - Neck Neck exam general surgery: Present: supple, trachea midline. Absent: lymphadenopathy - Respiratory Respiratory exam: Present: decreased breath sounds, CTAB, wheezes. Absent: accessory muscle use, chest wall tenderness, rales, respiratory distress, rhonchi Additional comments: Wheezing heard and anterior upper airways, as well as posterior bases. - Cardiovascular Cardiovascular exam: Present: RRR, +S1, +S2. Absent: diastolic murmur, gallop, rubs, systolic murmur - GI/Abdominal GI/Abdominal exam: Present: normal bowel sounds, soft. Absent: distended, hepatomegaly, tenderness - Extremities Exam Extremities exam: Present: normal capillary refill, normal inspection, warm, radial pulses palpable and symmetrical. Absent: calf tenderness, cyanotic, pedal edema, tenderness - Neurological Exam Neurological exam: Present: alert, oriented X3, no focal deficits. Absent: facial droop, speech deficit - Skin Skin exam: Present: dry, intact, normal color, warm. Absent: rash Internal Medicine: Result - Labs CBC & Chem 7: 01/08/18 04:40 01/08/18 04:40 Labs: Short CBC 01/08/18 Range/Units 04:40 WBC 11.9 H (4.3-11.1) K/mcL Hgb 10.7 L (12.9-16.9) g/dL Hct 35.8 L (37.5-50.1) % Plt Count 222 (140-400) K/mcL Neutrophils # 10.0 H (1.6-8.9) K/mcL BMP 01/08/18 04:40 Sodium 140 Potassium 3.7 Chloride 99 Carbon Dioxide 37 H BUN 29 H Creatinine 1.08 Glucose 100 Calcium 8.9 Cardiac Enzymes 01/08/18 Range/Units 04:40 Troponin I 0.03 (< 0.04) ng/mL Liver Function 01/08/18 Range/Units 04:40 Total Bilirubin 0.7 (0.3-1.0) mg/dL AST 17 (13-39) Units/L ALT 25 (7-52) Units/L Alkaline Phosphatase 39 (34-104) Units/L Albumin 3.5 (3.5-5.7) g/dL - ABG Interpretation ABG results: PT/INR, D-dimer PT 12.8 Seconds (9.4-12.1) H 01/07/18 05:33 - Impressions Impressions Echocardiogram 01/07/18 13:51 Impressions: LVEF 45-50%. Low normal-mildly reduced LV systolic function. Normal LV chamber size and wall thickness. Indeterminate diastolic function. Normal right ventricular structure with mildly reduced function. Severely dilated left atrium. Mild pulmonary hypertension. No significant valvular dysfunction. Left Ventricular Wall Motion: Rest Echo Findings The apex, apical inferior, mid inferior, basal inferior, apical anterior, mid anterior, basal anterior, apical septal, mid inferior septal, basal inferior septal, apical lateral, mid anterior lateral, basal anterior lateral, mid anterior septal, mid inferior lateral, basal anterior septal and basal inferior lateral ocy were hypokinetic. Findings: Study Quality * Technically adequate exam. ECG Findings * Atrial fibrillation. Left Ventricle * LVEF 45-50%. Low normal-mildly reduced LV systolic function. * Normal LV chamber size and wall thickness. * Indeterminate diastolic function. Right Ventricle * Normal right ventricular structure with mildly reduced function. Right Atrium * Moderately dilated right atrium. Left Atrium * Severely dilated left atrium. Aortic Valve * Trileaflet aortic valve with normal function. * No aortic regurgitation. * No aortic stenosis. Mitral Valve * Normal mitral valve structure and function. * No mitral stenosis. * Trace mitral regurgitation. Tricuspid Valve * Normal tricuspid valve structure and function. * Trace tricuspid regurgitation. * Mild pulmonary hypertension. Pulmonic Valve * Normal pulmonic valve structure and function. * Trace pulmonic regurgitation. Aorta * Normally sized aortic root. Pericardium * The pericardium appears normal. IVC * Normal IVC dimensions and inspiratory collapse. Pulmonary Artery * Normal visualized portions of the main pulmonary artery. Consult Discharge Plan - Plan Referrals: August Montejo MD [Primary Care Provider] -
[2018-01-08] MEDS: Menthol 9.1 MG LOZENGE PO PRN (17:07)
[2018-01-08] MEDS: Methyl Salicylate/Menthol 28 GM TUBE TP PRN (17:08)
[2018-01-08] MEDS ORDERED: Levofloxacin 750 MG/150 ML 750 MG/150 ML BAG IVPB SCH (19:00)
[2018-01-08] MEDS: Finasteride 5 MG TABLET PO SCH (20:55)
[2018-01-08] MEDS: Melatonin 3 MG TABLET PO PRN (21:04)
[2018-01-08] MEDS: *HR* OxyCODONE Immed Rel 5 MG TABLET PO PRN (21:05)
[2018-01-09] MEDS: Levalbuterol Neb 1.25 MG/3 ML IH SCH ×2 (03:50→10:44)
[2018-01-09 05:06] LABS: Basophils % 0.2 %; Eosinophils # 0.1 K/mcL (0.0-0.6); Eosinophils % 1.5 %; Hematocrit 32.4 % (37.5-50.1); Hemoglobin 9.8 g/dL (12.9-16.9); Immature Granulocytes % 0.3 % (0-4); Lymphocytes # 0.6 K/mcL (0.6-4.6); Lymphocytes % 6.7 %; Mean Corpuscular HGB Conc 30.2 g/dL (31.6-35.5); Mean Corpuscular Hemoglobin 27.7 pg (28.0-33.3); Mean Corpuscular Volume 91.5 fL (83.0-100.0); Mean Platelet Volume 9.6 fL (9.4-12.4); Monocytes # 0.7 K/mcL (0.0-1.3); Monocytes % 7.1 %; Neutrophils # 8.1 K/mcL (1.6-8.9); Platelet Count 184 K/mcL (140-400); Red Blood Count 3.54 M/mcL (4.19-5.50); Red Cell Distribution Width 15.8 % (11.5-14.5); Segmented Neutrophils % 84.2 %
[2018-01-09 05:27] LABS: Alanine Aminotransferase 21 Units/L (7-52); Albumin 3.1 g/dL (3.5-5.7); Albumin/Globulin Ratio 1.3 (1.1-2.2); Alkaline Phosphatase 34 Units/L (34-104); Aspartate Amino Transferase 16 Units/L (13-39); BUN/Creatinine Ratio 27 (6-26); Bilirubin,Total 0.9 mg/dL (0.3-1.0); Blood Urea Nitrogen 25 mg/dL (8-23); Calcium 8.3 mg/dL (8.6-10.3); Carbon Dioxide 40 mEq/L (23-29); Chloride 97 mEq/L (98-107); Globulin 2.4 g/dL (2.4-3.5); Glucose 166 mg/dL (70-105); Osmolality,Calculated 294 (280-300); Potassium 3.4 mEq/L (3.5-5.1); Sodium 138 mEq/L (136-145); Total Protein 5.5 g/dL (6.4-8.9); eGFR For African Americans > 60 (> 60); eGFR For Non-African Americans > 60 (> 60)
[2018-01-09] MEDS: Piperacillin/Tazobactam 3.375 GM in 0.9 % Sodium Chloride Mini Bag 100 ML IVPB SCH (07:57)
[2018-01-09] MEDS: Nicotine 14 MG PATCH.TD24 TD SCH (07:57)
[2018-01-09] MEDS: Diphenoxylate/Atropine 1 TAB TABLET PO SCH (07:58)
[2018-01-09] MEDS: Lactobacillus 1 EACH CAP.SPRINK PO SCH (07:58)
[2018-01-09] MEDS: hydroCHLOROthiazide 25 MG TABLET PO SCH (07:58)
[2018-01-09] MEDS: Cholecalciferol (D-3) 1,000 UNIT TABLET PO SCH (07:58)
[2018-01-09] MEDS: Aspirin 325 MG TABLET PO SCH (07:58)
[2018-01-09] MEDS: Losartan/HCTZ 50-12.5 TABLET PO SCH (07:59)
[2018-01-09] MEDS: Multivit/Ca/Min/Fe/FA 1 TAB TABLET PO SCH (07:59)
[2018-01-09] MEDS: Apixaban 5 MG TABLET PO SCH (07:59)
[2018-01-09] MEDS: Loratadine 10 MG TABLET PO SCH (07:59)
[2018-01-09] MEDS: Famotidine 20 MG TABLET PO SCH (07:59)
[2018-01-09] MEDS: Capsaicin 0.025% 60 GM TUBE TP SCH (08:06)
[2018-01-09] MEDS: Methyl Salicylate/Menthol 28 GM TUBE TP PRN (10:02)
[2018-01-09 10:43] VITALS: BP 134/89
[2018-01-09] MEDS: Budesonide/Formoterol 160/4.5 MDI IH SCH (10:44)
--- NOTE | 2018-01-09 11:31 | Discharge Summary ---
Orders not resulted at time of discharge: Pending orders 01/06/18 15:09 Fecal Hemoccult [Occult Blood,Stool] [BF] Routine 01/09/18 12:00 Basic Metabolic Panel Routine 01/09/18 22:00 Vancomycin,Trough Timed 01/10/18 04:00 Complete Blood Count [HEME] AM 0400 Comprehensive Metabolic Panel AM 0400 01/11/18 04:00 Complete Blood Count [HEME] AM 0400 Comprehensive Metabolic Panel AM 0400 Date of Encounter: 01/09/18 Time of Encounter: 09:35 - Discharge Diagnosis (1) COPD (chronic obstructive pulmonary disease) Priority: Secondary Status: Chronic Comments: Acute exacerbation complicated by HCAP. Pt has improved. He is wearing 02 continuously, normally only uses 02 at bedtime at ECF. He is maintaining sats well on 2L via nasal canula. He states that he is feeling well and wants to go back to the ECF. He reports that his breathing is better and denies cough. Continue 02 at ECF to maintain 02 sats > 92% Continue nebulizer treatments, antibiotics. Qualifiers: COPD type: unspecified COPD Qualified Code(s): J44.9 - Chronic obstructive pulmonary disease, unspecified (2) Atrial fibrillation Priority: Secondary Status: Chronic Comments: Rate controlled. Continue home medications. Echo: LVEF 45-50%, low to mildly reduced LV systolic function, indeterminant diastolic function, severely dilated left atrium, no significant valvular dysfunction. Cardiology has evaluated the patient. He had not been anticoagulated previously. He has been started on Eliquis. Continue beta melba in divided dose, Norvasc was stopped due to lower extremity edema which has resolved. Patient has stress test ordered, he has declined stating he has had in the past and did not tolerate well. [place] Weaver signed off. He will need to follow up outpatient with cardiology. Qualifiers: Atrial fibrillation type: chronic Qualified Code(s): I48.2 - Chronic atrial fibrillation (3) HCAP (healthcare-associated pneumonia) Priority: Secondary Status: Acute Comments: Patient will be sent home with Levaquin by mouth. He may continue breathing treatments and oxygen at home as needed. (4) HLD (hyperlipidemia) Priority: Secondary Status: Chronic Comments: Chronic. Continue home medications. Qualifiers: Hyperlipidemia type: pure hypercholesterolemia Qualified Code(s): E78.00 - Pure hypercholesterolemia, unspecified; E78.0 - Pure hypercholesterolemia (5) HTN (hypertension) Priority: Secondary Status: Chronic Comments: Chronic. Well controlled. Continue home medications. Beta melba dose has been adjusted and Norvasc has been stopped. Qualifiers: Hypertension type: essential hypertension Qualified Code(s): I10 - Essential (primary) hypertension (6) Previous myocardial infarction older than 8 weeks Priority: Secondary Status: Chronic (7) DVT prophylaxis Priority: Secondary Status: Acute Comments: Heparin SQ initially, pt has been started on Eliquis. (8) Elevated TSH Priority: Secondary Status: Acute Comments: Recheck labs in 4-6 weeks. (9) Anemia Priority: Secondary Status: Chronic Comments: Hgb 9.8 today. Pt denies marly hematuria, hematochezia, or melena. Stool occult blood negative. Pt appears well. Anemia is chronic, dating back to Oct, 2016. Iron and % sat are low,continue Ferrous Sulfate at ECF and monitor labs. Qualifiers: Anemia type: iron deficiency Iron deficiency anemia type: unspecified iron deficiency Qualified Code(s): D50.9 - Iron deficiency anemia, unspecified (10) Acute respiratory failure Priority: Secondary Status: Acute Comments: Acute on chronic. Pt wears 02 at ECF at night and when he is resting in his room. Continue 02 as needed to maintain sats > 92%. Pt wearing 02 round the clock here, maintaining sats well. Qualifiers: Respiratory failure complication: unspecified whether with hypoxia or hypercapnia Qualified Code(s): J96.00 - Acute respiratory failure, unspecified whether with hypoxia or hypercapnia (11) Obesity (BMI 30.0-34.9) Priority: Secondary Status: Chronic Comments: Chronic. Encourage lifestyle modifications. Hospital course: Mr. Lay is a 72 year old male with past medical history of COPD, hypertension , tobacco use, dementia, A. fib, hyperlipidemia, hypertension, chronic anemia, obesity. Patient presented to the emergency department from [facility] with complaint of brief run of A. fib RVR. Patient reports he has paroxysmal A. fib that is not anticoagulated. She also reported chronic diarrhea, cough mild shortness of breath for about one week prior to arrival. Chest x-ray showed consolidation in the right middle lung. He was admitted and treated with Xopenex treatments every 6 hours, IV vancomycin, IV Zosyn, IV Levaquin. Blood cultures 2 are negative, legionella and strep pneumo were negative. Patient mild leukocytosis, tachycardia on admission. He had no sepsis throughout his visit. He was evaluated by cardiology. He was to have a stress test but declined. He has been placed on anticoagulation with Eliquis and will continue after discharge. Mr. Lay will also be sent home with prescription for Levaquin, he will continue duo nebs and oxygen as needed. Patient normally wears oxygen at the [facility] 2 L when he is resting in his room. His labs and vitals are stable and WNL. He is appropriate for discharge back to [facility] with follow up with facility physician. Discharge discussed with: patient - Time Spent with Patient Total time spent providing and/or coordinating discharge services: Less than 30 minutes - Discharge Medications Prescriptions: OxyCODONE Immed Rel [Roxicodone 5 MG] 5 - 10 mg PO Q6HR PRN 1 Days #4 tablet PRN Reason: Pain Apixaban [Eliquis] 5 mg PO BID #30 tablet Home Medications: Albuterol Sulfate [Albuterol Inhaler] 2 puff IH Q4HR PRN 12/16/16 [History] Ascorbate Calcium [Vitamin C] 500 mg PO DAILY 12/16/16 [History] Aspirin 325 mg PO DAILY 12/16/16 [History] Atenolol 100 mg PO DAILY 12/16/16 [History] Budesonide/Formoterol 160/4.5 [Symbicort 160/4.5] 2 puff IH BIDR 12/16/16 [ History] Capsaicin 0.025% [Trixaicin] 1 appl TP TID 12/16/16 [History] Cholecalciferol (D-3) [Vitamin D] 2,000 unit PO DAILY 12/16/16 [History] Diphenoxylate/Atropine [Lomotil 2.5 mg/0.025 mg] 2 each PO QID 12/16/16 [History ] Donepezil [Aricept] 10 mg PO HS 12/16/16 [History] Ferrous Sulfate [Iron] 325 mg PO DAILY 12/16/16 [History] Fexofenadine HCl [Allergy Relief] 180 mg PO DAILY 12/16/16 [History] Finasteride [Proscar] 5 mg PO HS 12/16/16 [History] GuaiFENesin/Dextromethorphan [Robitussin Cough-Chest Dm Liq] 10 ml PO Q4H PRN [History] Hydrocortisone 1% CREAM [Cortaid] 1 appl TP DAILY PRN 12/16/16 [History] Ipratropium/Albuterol Neb [Duoneb] 3 ml IH Q6HR PRN 12/16/16 [History] Loperamide [Imodium] 2 mg PO QID PRN 12/16/16 [History] Losartan/Hydrochlorothiazide [Hyzaar 100-25 Tablet] 1 each PO DAILY 12/16/16 [ History] Multivit,Th Iron,Other Min [Therems-H] 1 each PO DAILY 12/16/16 [History] Multivitamin [One Daily Essential] 1 each PO DAILY 12/16/16 [History] Simvastatin [Zocor] 40 mg PO HS 12/16/16 [History] Tamsulosin [Flomax] 0.4 mg PO HS 12/16/16 [History] Tizanidine HCl 4 mg PO Q8H PRN 12/16/16 [History] amLODIPine [Norvasc] 5 mg PO DAILY 12/16/16 [History] hydroCHLOROthiazide [Hydrochlorothiazide] 12.5 mg PO DAILY 12/16/16 [History] Cimetidine 200 mg PO DAILY 11/11/17 [History] Lactobacillus [Culturelle] 2 each PO BID 11/11/17 [History] Memantine [Namenda] 5 mg PO DAILY 11/11/17 [History] Sertraline [Zoloft] 25 mg PO DAILY 11/11/17 [History] Bismuth Subsalicylate [Pepto-Bismol] 524 mg PO QID PRN 01/06/18 [History] Apixaban [Eliquis] 5 mg PO BID #30 tablet 01/09/18 [Rx] Guaifenesin [Mucus Relief] 600 mg PO BID PRN #0 01/09/18 [Rx] Melatonin 3 mg PO HS PRN tablet 01/09/18 [Rx] Menthol [Cough Drops] 9.1 mg PO Q2H PRN lozenge 01/09/18 [Rx] Methyl Salicylate/Menthol [Bengay] 1 appl TP BID PRN tube 01/09/18 [Rx] OxyCODONE Immed Rel [Roxicodone 5 MG] 5 - 10 mg PO Q6HR PRN 1 Days #4 tablet [Rx] Allergies/Adverse Reactions: 3 Allergy/AdvReac Type Severity Reaction Status Date / Time No Known Allergies Allergy Verified 01/06/18 12:32 Date of admission: 01/06/18 13:13 Primary care physician: August Montejo MD Consults: 01/06/18 13:42 Consult to Delivery Route Driver [CONS] Routine Reason for SW Consult: Please assess patient for possible home needs for post -discharge planning. 01/06/18 14:44 Consult to Cardiology [CONS] Routine Comment: Consulting Provider: Cardiology Annie Reason for Consult: Patient is 72 [facility] resident [facility] and had episode of Afib w/RVR today. Hx of Afib w/o anticoagulation. COPD. CXR shows pneumonia (HCAP). Concern is for Afib w/o anticoagulation currently. OK in 1983 w/o stent placement. Echocardiogram ordered. Call Completed: Yes Discharging clinician: Hellen Thao Anticipated date of discharge: 01/09/18 - Constitutional Vitals: Temp Pulse Resp BP Pulse Ox 99.3 F 87 14 134/89 93 01/09/18 10:42 01/09/18 10:42 01/09/18 10:42 01/09/18 10:42 01/09/18 10:42 General appearance: Present: cooperative, A&O X 3, pleasant, no acute distress, obese, answers questions appropriately - Head Head exam: Present: atraumatic, normal inspection, normocephalic - Eye Eye exam: Present: conjuntiva pink, sclera anicteric - Neck Neck exam general surgery: Present: normal inspection, supple, trachea midline. Absent: lymphadenopathy, tenderness - Respiratory Respiratory exam: Present: decreased breath sounds, CTAB. Absent: accessory muscle use, chest wall tenderness, rales, respiratory distress, rhonchi, wheezes - Cardiovascular Cardiovascular exam: Present: RRR, +S1, +S2. Absent: diastolic murmur, gallop, rubs, systolic murmur - GI/Abdominal GI/Abdominal exam: Present: normal bowel sounds, soft. Absent: distended, hepatomegaly, tenderness - Extremities Exam Extremities exam: Present: normal inspection, pedal edema, warm, radial pulses palpable and symmetrical. Absent: calf tenderness, cyanotic, joint swelling, tenderness Additional comments: +1-2 bilateral lower extremity pedal edema improved from normal baseline, as well as being improved from admission. - Neurological Exam Neurological exam: Present: alert, oriented X3, no focal deficits. Absent: facial droop, speech deficit - Skin Skin exam: Present: dry, intact, normal color, warm. Absent: rash - Patient Status Disposition: Transfer SNF Condition: Fair Functional capacity at discharge: uses cane/walker Overall status at discharge: patient is progressing back to baseline - Discharge Instructions Instructions: Apixaban (By mouth) Follow Up With: August Montejo MD [Primary Care Provider] - (Patient should follow up with primary care physician 7-10 days.) Additional Instructions: Pt will need repeat H and H in 3 days. - Diet and Activity Activity: increase activity as tolerated, resume usual activities as tolerated Diet: advance to your usual diet, low fat, low cholesterol, low salt diet
[2018-01-09 12:19] LABS: BUN/Creatinine Ratio 24 (6-26); Blood Urea Nitrogen 24 mg/dL (8-23); Calcium 8.7 mg/dL (8.6-10.3); Carbon Dioxide 38 mEq/L (23-29); Chloride 97 mEq/L (98-107); Glucose 158 mg/dL (70-105); Osmolality,Calculated 293 (280-300); Potassium 3.5 mEq/L (3.5-5.1); Sodium 138 mEq/L (136-145); eGFR For African Americans > 60 (> 60); eGFR For Non-African Americans > 60 (> 60)
--- NOTE | 2018-01-09 13:04 | Physician Discharge Referral ---
ExtendedCare Referral Info Transfer To: [facility] Provider in Charge after Transfer: PCP Institutional Level of Care: Intermediate - Diagnosis (1) COPD (chronic obstructive pulmonary disease) Priority: Secondary Status: Chronic (2) Atrial fibrillation Priority: Secondary Status: Chronic (3) HCAP (healthcare-associated pneumonia) Priority: Primary Status: Acute (4) HLD (hyperlipidemia) Priority: Secondary Status: Chronic (5) HTN (hypertension) Priority: Secondary Status: Chronic (6) Previous myocardial infarction older than 8 weeks Priority: Secondary Status: Chronic (7) DVT prophylaxis Priority: Secondary Status: Acute (8) Elevated TSH Priority: Secondary Status: Acute (9) Anemia Priority: Secondary Status: Chronic (10) Acute respiratory failure Priority: Secondary Status: Acute (11) Obesity (BMI 30.0-34.9) Priority: Secondary Status: Chronic - Transfer Medications Prescriptions: OxyCODONE Immed Rel [Roxicodone 5 MG] 5 - 10 mg PO Q6HR PRN 1 Days #4 tablet PRN Reason: Pain Apixaban [Eliquis] 5 mg PO BID #30 tablet Home Medications: Albuterol Sulfate [Albuterol Inhaler] 2 puff IH Q4HR PRN 12/16/16 [History] Ascorbate Calcium [Vitamin C] 500 mg PO DAILY 12/16/16 [History] Aspirin 325 mg PO DAILY 12/16/16 [History] Atenolol 100 mg PO DAILY 12/16/16 [History] Budesonide/Formoterol 160/4.5 [Symbicort 160/4.5] 2 puff IH BIDR 12/16/16 [ History] Capsaicin 0.025% [Trixaicin] 1 appl TP TID 12/16/16 [History] Cholecalciferol (D-3) [Vitamin D] 2,000 unit PO DAILY 12/16/16 [History] Diphenoxylate/Atropine [Lomotil 2.5 mg/0.025 mg] 2 each PO QID 12/16/16 [History ] Donepezil [Aricept] 10 mg PO HS 12/16/16 [History] Ferrous Sulfate [Iron] 325 mg PO DAILY 12/16/16 [History] Fexofenadine HCl [Allergy Relief] 180 mg PO DAILY 12/16/16 [History] Finasteride [Proscar] 5 mg PO HS 12/16/16 [History] GuaiFENesin/Dextromethorphan [Robitussin Cough-Chest Dm Liq] 10 ml PO Q4H PRN [History] Hydrocortisone 1% CREAM [Cortaid] 1 appl TP DAILY PRN 12/16/16 [History] Ipratropium/Albuterol Neb [Duoneb] 3 ml IH Q6HR PRN 12/16/16 [History] Loperamide [Imodium] 2 mg PO QID PRN 12/16/16 [History] Losartan/Hydrochlorothiazide [Hyzaar 100-25 Tablet] 1 each PO DAILY 12/16/16 [ History] Multivit,Th Iron,Other Min [Therems-H] 1 each PO DAILY 12/16/16 [History] Multivitamin [One Daily Essential] 1 each PO DAILY 12/16/16 [History] Simvastatin [Zocor] 40 mg PO HS 12/16/16 [History] Tamsulosin [Flomax] 0.4 mg PO HS 12/16/16 [History] Tizanidine HCl 4 mg PO Q8H PRN 12/16/16 [History] amLODIPine [Norvasc] 5 mg PO DAILY 12/16/16 [History] hydroCHLOROthiazide [Hydrochlorothiazide] 12.5 mg PO DAILY 12/16/16 [History] Cimetidine 200 mg PO DAILY 11/11/17 [History] Lactobacillus [Culturelle] 2 each PO BID 11/11/17 [History] Memantine [Namenda] 5 mg PO DAILY 11/11/17 [History] Sertraline [Zoloft] 25 mg PO DAILY 11/11/17 [History] Bismuth Subsalicylate [Pepto-Bismol] 524 mg PO QID PRN 01/06/18 [History] Apixaban [Eliquis] 5 mg PO BID #30 tablet 01/09/18 [Rx] Guaifenesin [Mucus Relief] 600 mg PO BID PRN #0 01/09/18 [Rx] Melatonin 3 mg PO HS PRN tablet 01/09/18 [Rx] Menthol [Cough Drops] 9.1 mg PO Q2H PRN lozenge 01/09/18 [Rx] Methyl Salicylate/Menthol [Bengay] 1 appl TP BID PRN tube 01/09/18 [Rx] OxyCODONE Immed Rel [Roxicodone 5 MG] 5 - 10 mg PO Q6HR PRN 1 Days #4 tablet [Rx] Allergies/Adverse Reactions: 3 Allergy/AdvReac Type Severity Reaction Status Date / Time No Known Allergies Allergy Verified 01/06/18 12:32 - Respiratory Orders Oxygen / L per min (2 liters via nasal canula, titrate as needed to maintain sats > 92%) Smoking Cessation: Smoking cessation has been advised. For more information, call the [place] Tobacco Quit Line at 8-218-NQNM-NOW. - Lab Orders Lab Orders: 2 Step Mantoux Test per State regulation, CBC, U/A, Conrad 17, CXR yearly - Ancillary Orders May use pressure relief devices daily prn, May go on JHONATAN w/family/respon libertarian w /meds at nurse discretion PRN, May consult with Dentist, Agency Sales Director, Tissue Coordinator PRN - Advance Directives Code Status: Full Code - Mobility Orders Chair, Ambulate - Rehabiliation Orders Rehab Potential: Good Rehab Orders: ROM Exercises, Evaluation for Physical Therapy, Evaluation for Occupational Therapy - Treatments Skin tear care topically daily PRN per policy, May check for fecal impaction rectally daily PRN, Fleet enema rectally every other day PRN cleansing purposes - Diet Orders Cardiac CERTIFICATION: I certify that the transfer of the above named patient to an Extended Care Facility is necessary for the continuing treatment of the diagnosis listed. The above information is true and accurate reflection of patient's current condition. Confidential - Redisclosure prohibited without a patient's written consent.
[2018-01-09] MEDS ORDERED: Aminoglycoside Consult 1 EACH MC ONE (13:57)
== END 2018-01-09 13:58 | DRG 193 ==
LOC: EMEROO 10:21 → 3BNU 13:13
PROVIDERS: ADMIT Internal Medicine; ATTEND Registered Nurse

== ENCOUNTER 2018-09-24 07:41 | Inpatient (IN) ==
[2018-09-24] MEDS ORDERED: 0.9 % Sodium Chloride 1,000 ML IVC ONE (07:58)
--- NOTE | 2018-09-24 08:13 | Emergency Department Note ---
Addendum entered and electronically signed by Mick Leavitt DO 09/24/18 14:06: This note was signed. Original Note: Disposition Clinical Impression: CONSTANCE (acute kidney injury), Hyperglycemia Sepsis Qualifiers: Sepsis type: sepsis due to unspecified organism Qualified Code(s): A41.9 - Sepsis, unspecified organism Pneumonia Qualifiers: Pneumonia type: due to unspecified organism Laterality: left Lung location: unspecified part of lung Qualified Code(s): J18.9 - Pneumonia, unspecified organism Disposition: Admitted As Inpatient Condition: Fair Time of Disposition: 09:36 General Adult HPI - General Chief complaint: ED Recheck/Abnormal Lab/Rx Stated complaint: high blood sugar Time Seen by Provider: 09/24/18 07:55 Source: patient, EMS Mode of arrival: EMS Limitations: no limitations, altered mental status Nursing Notes Reviewed: Yes Vital Signs Reviewed: Yes - History of Present Illness HPI Narrative: 72-year-old male with a history of COPD, A. fib presents from [facility] for concerns of altered mental status. Nursing staff noted the patient has been altered over the past 2 days. Patient's also became incontinent of urine. Patient also has increasing oxygen requirement. Patient's typically on 2 L nasal cannula and is now requiring 4 L nasal cannula. Patient's not able to provide accurate history is a does appear acutely confused. Patient denies any falls. No abdominal pain. No chest pain. Patient denies a nausea vomiting. At the nursing facility the patient's glucose was read as high 2. Patient is not a known diabetic. Pain Scale: 0 - Related Data Home Medications Medication Instructions Recorded Confirmed Albuterol Sulfate [Albuterol 2 puff IH Q4HR PRN 12/16/16 01/06/18 Inhaler] Ascorbate Calcium [Vitamin C] 500 mg PO DAILY 12/16/16 01/06/18 Aspirin 325 mg PO DAILY 12/16/16 01/06/18 Atenolol 100 mg PO DAILY 12/16/16 01/06/18 Budesonide/Formoterol 160/4.5 2 puff IH BIDR 12/16/16 01/06/18 [Symbicort 160/4.5] Capsaicin 0.025% [Trixaicin] 1 appl TP TID 12/16/16 01/06/18 Cholecalciferol (D-3) [Vitamin D] 2,000 unit PO DAILY 12/16/16 01/06/18 Diphenoxylate/Atropine [Lomotil 2 each PO QID 12/16/16 01/06/18 2.5 mg/0.025 mg] Donepezil [Aricept] 10 mg PO HS 12/16/16 01/06/18 Ferrous Sulfate [Iron] 325 mg PO DAILY 12/16/16 01/06/18 Fexofenadine HCl [Allergy Relief] 180 mg PO DAILY 12/16/16 01/06/18 Finasteride [Proscar] 5 mg PO HS 12/16/16 01/06/18 GuaiFENesin/Dextromethorphan 10 ml PO Q4H PRN 12/16/16 01/06/18 [Robitussin Cough-Chest Dm Liq] Hydrocortisone 1% CREAM [Cortaid] 1 appl TP DAILY PRN 12/16/16 01/06/18 Ipratropium/Albuterol Neb [Duoneb] 3 ml IH Q6HR PRN 12/16/16 01/06/18 Loperamide [Imodium] 2 mg PO QID PRN 12/16/16 01/06/18 Losartan/Hydrochlorothiazide 1 each PO DAILY 12/16/16 01/06/18 [Hyzaar 100-25 Tablet] Multivit,Th Iron,Other Min 1 each PO DAILY 12/16/16 01/06/18 [Therems-H] Multivitamin [One Daily Essential] 1 each PO DAILY 12/16/16 01/06/18 Simvastatin [Zocor] 40 mg PO HS 12/16/16 01/06/18 Tamsulosin [Flomax] 0.4 mg PO HS 12/16/16 01/06/18 Tizanidine HCl 4 mg PO Q8H PRN 12/16/16 01/06/18 amLODIPine [Norvasc] 5 mg PO DAILY 12/16/16 01/06/18 hydroCHLOROthiazide 12.5 mg PO DAILY 12/16/16 01/06/18 [Hydrochlorothiazide] Cimetidine 200 mg PO DAILY 11/11/17 01/06/18 Lactobacillus [Culturelle] 2 each PO BID 11/11/17 01/06/18 Memantine [Namenda] 5 mg PO DAILY 11/11/17 01/06/18 Sertraline [Zoloft] 25 mg PO DAILY 11/11/17 01/06/18 Bismuth Subsalicylate 524 mg PO QID PRN 01/06/18 01/06/18 [Pepto-Bismol] Previous Rx's Medication Instructions Recorded Apixaban [Eliquis] 5 mg PO BID #30 tablet 01/09/18 Guaifenesin [Mucus Relief] 600 mg PO BID PRN #0 01/09/18 Melatonin 3 mg PO HS PRN tablet 01/09/18 Methyl Salicylate/Menthol [Bengay] 1 appl TP BID PRN tube 01/09/18 OxyCODONE Immed Rel [Roxicodone 5 5 - 10 mg PO Q6HR PRN 1 Days #4 01/09/18 MG] tablet Allergies Allergy/AdvReac Type Severity Reaction Status Date / Time No Known Allergies Allergy Verified 01/06/18 12:32 All systems ED: reviewed and negative except as stated. Constitutional: Denies: fever Cardiovascular: Denies: chest pain Respiratory: Reports: cough, dyspnea Gastrointestinal: Denies: abdominal pain, nausea, vomiting Past Medical History - Past Medical History Source: patient Medical history: Reports: arthritis, atrial fibrillation, COPD, hyperlipidemia, hypertension, myocardial infarction, other Surgical history: Reports: non-contributory Psychiatric history: Reports: no psych history, other - Social History Smoking Status: Current every day smoker Smokeless Tobacco Status: No Alcohol use: Reports: none Drug use: Reports: none Physical Exam - General Limitations: no limitations General appearance: alert, in no apparent distress - Head Head exam: atraumatic, normocephalic, normal inspection - Eye Eye exam: Present: normal appearance, PERRL, EOMI - ENT ENT exam: normal exam - Neck Neck exam: Present: normal inspection - Chest Chest inspection: Present: normal inspection, symmetric chest wall rise - Respiratory Respiratory exam: Present: accessory muscle use. Absent: respiratory distress - Cardiovascular Cardiovascular exam: Present: regular rate, normal rhythm. Absent: systolic murmur - Abdominal Exam Abdominal exam: Present: soft, Non-Tender - Extremities Exam Extremities exam: Present: normal inspection. Absent: pedal edema - Back Exam Back exam: Present: normal inspection. Absent: CVA tenderness (R), CVA tenderness (L) - Neurological Exam Neurological exam: Present: alert, CN II-XII intact. Absent: oriented X3 - Expanded Neurological Exam Patient oriented to: Present: person, place. Absent: time Speech: Present: fluid speech Cranial nerves: EOM function (II, III, IV, ): Normal, facial sensation (V): Normal, facial palsy (VII): Normal, spinal accessory function (XI): Normal, tongue deviation (XII): Normal Motor strength - LUE: 5/5 Motor strength - RUE: 5/5 Motor strength - LLE: 5/5 Motor strength - RLE: 5/5 Coma Scale Eye Opening: Spontaneous Coma Scale Motor Response: Obeys Commands Coma Scale Verbal Response: Oriented Coma Scale Total: 15 - Skin Skin exam: Present: warm, dry, intact, normal color Course Course Narrative: Patient seen and examined. Patient's PSA glucose read as high. Patient is a alf patient. Concerns initially for infection triggering the patient's hyperglycemia. Will get screening EKG chest x-ray as well as urinalysis. Patient also get sepsis labs IV fluids. Disposition likely admission. - Reevaluation(s) Reevaluation #1: Patient seen and examined. Patient was updated on plan of care. Nonfocal neurologic exam. Time: 10:04 Reevaluation #2: Patient's been resting in the ED with stable vitals. Repeat blood glucose still reads high. Will re-dose the patient's bolus insulin. Patient's been receiving IV fluids. Time: 11:28 Vital Signs Temperature 98.3 F 09/24/18 07:52 Pulse Rate 96 09/24/18 07:52 Respiratory Rate 22 09/24/18 07:52 Blood Pressure 113/93 09/24/18 07:52 O2 Sat by Pulse Oximetry 94 09/24/18 07:52 Temperature 98.3 F 09/24/18 07:52 Pulse Rate 122 09/24/18 10:50 Respiratory Rate 18 09/24/18 10:50 Blood Pressure 97/63 09/24/18 10:50 O2 Sat by Pulse Oximetry 94 09/24/18 10:50 Oxygen Delivery Oxygen Delivery Nasal Cannula Medical Decision Making - MDM Narrative Medical decision making narrative: Patient presented for concerns of altered mental status. Given the patient's history of a cough congestion over the past few days as well as increased nausea requirement the patient will be treated for hospital associated pneumonia. Patient does have abnormal labs. Patient's meeting SIRS criteria with likely source in the lungs. Patient was given gradual fluid hydration given unknown cardiopulmonary function. Patient was given a bolus of fluid as well as placed on maintenance. Patient does have evidence of hyperglycemia and ketosis however the patient is not acidotic. Patient was given bolus dose of insulin. Discussed the case with the hospitalist which at this time we will continue to monitor the sugar with fluids and bolus dosing of insulin and insulin drip was not given in the ED. Patient has no evidence of UTI. Patient does have hyponatremia likely secondary to the hyperglycemia. Patient does have new AK I which is likely prerenal given his excessive diuresis urinary incontinence given hyperglycemia. Patient is not a known diabetic. Patient did not get a head CT as the patient has a nonfocal neurologic exam and his confusion is likely secondary to his sepsis pneumonia and hyperglycemia. - Lab Data Lab results reviewed: Yes I reviewed the patient's lab results. Result diagrams: 09/24/18 08:10 09/24/18 08:10 Lab Results 09/24/18 09/24/18 09/24/18 Range/Units 08:00 08:10 08:10 WBC 23.1 H (4.3-11.1) K/mcL RBC 4.05 L (4.19-5.50) M/mcL Hgb 11.4 L (12.9-16.9) g/dL Hct 35.0 L (37.5-50.1) % MCV 86.4 (83.0-100.0) fL MCH 28.1 (28.0-33.3) pg MCHC 32.6 (31.6-35.5) g/dL RDW 14.0 (11.5-14.5) % Plt Count 265 (140-400) K/mcL MPV 10.8 (9.4-12.4) fL Immature Gran % 0.9 (0-4) % Seg Neutrophils % 90.5 % Lymphocytes % 2.1 % Monocytes % 6.3 % Eosinophils % 0.1 % Basophils % 0.1 % Neutrophils # 20.9 H (1.6-8.9) K/mcL Lymphocytes # 0.5 L (0.6-4.6) K/mcL Monocytes # 1.5 H (0.0-1.3) K/mcL Eosinophils # 0.0 (0.0-0.6) K/mcL Basophils # 0.0 (0.0-0.2) K/mcL Sodium 122 L (136-145) mEq/L Potassium 3.7 (3.5-5.1) mEq/L Chloride 75 L (98-107) mEq/L Carbon Dioxide 39 H (23-29) mEq/L BUN 91 H (8-23) mg/dL Creatinine 2.22 H (0.70-1.30) mg/dL Est GFR ( Amer) 35 L (> 60) Est GFR (Non-Af Amer) 29 L (> 60) BUN/Creatinine Ratio 41 H (6-26) Glucose 883 H* (70-105) mg/dL Calculated Osmolality 326 H (280-300) Lactic Acid (0.5-2.2) mmol/L Calcium 8.9 (8.6-10.3) mg/dL Phosphorus 3.9 (2.7-4.5) mg/dL Magnesium 2.3 (1.6-2.6) mg/dL Troponin I < 0.03 (< 0.04) ng/mL Beta-Hydroxybutyric Acd (0.02-0.27) mmol/L Urine Color Yellow (Yellow) Urine Clarity Clear (Clear) Urine pH 6.0 (5.0-8.0) pH Units Ur Specific [place] 1.022 (1.010-1.025) Urine Protein Negative (Neg-Trace) mg/dL Urine Glucose (UA) >=1000 H (Normal) mg/dL Urine Ketones Negative (Negative) mg/dL Urine Blood Negative (Negative) Urine Nitrite Negative (Negative) Urine Bilirubin Negative (Negative) Urine Urobilinogen Normal (Normal) mg/dL Ur Leukocyte Esterase Negative (Negative) 09/24/18 09/24/18 Range/Units 08:10 08:10 WBC (4.3-11.1) K/mcL RBC (4.19-5.50) M/mcL Hgb (12.9-16.9) g/dL Hct (37.5-50.1) % MCV (83.0-100.0) fL MCH (28.0-33.3) pg MCHC (31.6-35.5) g/dL RDW (11.5-14.5) % Plt Count (140-400) K/mcL MPV (9.4-12.4) fL Immature Gran % (0-4) % Seg Neutrophils % % Lymphocytes % % Monocytes % % Eosinophils % % Basophils % % Neutrophils # (1.6-8.9) K/mcL Lymphocytes # (0.6-4.6) K/mcL Monocytes # (0.0-1.3) K/mcL Eosinophils # (0.0-0.6) K/mcL Basophils # (0.0-0.2) K/mcL Sodium (136-145) mEq/L Potassium (3.5-5.1) mEq/L Chloride (98-107) mEq/L Carbon Dioxide (23-29) mEq/L BUN (8-23) mg/dL Creatinine (0.70-1.30) mg/dL Est GFR ( Amer) (> 60) Est GFR (Non-Af Amer) (> 60) BUN/Creatinine Ratio (6-26) Glucose (70-105) mg/dL Calculated Osmolality (280-300) Lactic Acid 2.1 (0.5-2.2) mmol/L Calcium (8.6-10.3) mg/dL Phosphorus (2.7-4.5) mg/dL Magnesium (1.6-2.6) mg/dL Troponin I (< 0.04) ng/mL Beta-Hydroxybutyric Acd 0.47 H (0.02-0.27) mmol/L Urine Color (Yellow) Urine Clarity (Clear) Urine pH (5.0-8.0) pH Units Ur Specific [place] (1.010-1.025) Urine Protein (Neg-Trace) mg/dL Urine Glucose (UA) (Normal) mg/dL Urine Ketones (Negative) mg/dL Urine Blood (Negative) Urine Nitrite (Negative) Urine Bilirubin (Negative) Urine Urobilinogen (Normal) mg/dL Ur Leukocyte Esterase (Negative) - Radiology Data Radiology results reviewed: Yes I reviewed the patient's radiology results. Chest X-Ray 09/24/18 08:06 IMPRESSION: Left lower lobe atelectasis or infiltrate. Recommend radiographic follow-up until resolution. D/ / Brayden Green MD / Brayden Green MD Interpreting Provider: Brayden Green MD - EKG Data EKG #1 Rate: tachycardia Rhythm: A.Fib [place]/QRS: normal ST segment depression in: v4 Interpretation: no acute changes, unchanged when compared to prior tracing (date) Marija - Marija Situation: Demographics Background: Presenting Complaint Assessment: Vital Signs, Course and respsone to treatment, Patient/Family Expectation Recommendation: Barrier(s) to disposition, Recommendation based on pending studies, treatments, or consults Marija Report Given to: Dr. Viri Dutton Repor Time: 09:35 Attestation Statement - Attestation Attestation: This documentation is done with the assistance of Dragon dictation. Despite efforts made to ensure accuracy, there may be inaccuracies in aeronautics teacher or spelling and typographical errors. I examined this patient and my medical decision-making was reviewed with the Resident Physician. I agree with the documented findings, disposition and treatment plan as described except to the extent set forth below. Patient was seen and evaluated by Dr. Leavitt and myself, I agree with his evaluation management plan, suprascapular the patient's stay. Patient was sent from [facility] due to the last 48 hours of having altered mental status. They checked a fingerstick blood sugar was high. No history of diabetes his reading here is hi gh also. Returning at labs and treat him and he will need admission. Sounds like this will be new onset diabetes and rule out DKA. Sepsis Reassessment Note - Evaluation Current Stage of Sepsis: sepsis Possible Source of Sepsis: pulmonary - Focused Exam Date of Encounter: 09/24/18 Time of Encounter: 10:03 Vital Signs: Vital Signs Temp Pulse Resp BP Pulse Ox 09/24/18 07:55 94 09/24/18 07:52 98.3 F 96 22 113/93 94 Respiratory Exam: Present: rhonchi Cardiovascular Exam: Present: irregulary irregular Capillary Refill: < 2 seconds Peripheral Pulse Strength: 3+ normal Peripheral Pulse Location: Radial Skin Exam: normal turgor
[2018-09-24 08:15] LABS: Bilirubin,Urine Negative (Negative); Blood,Urine Negative (Negative); Clarity,Urine Clear (Clear); Color,Urine Yellow (Yellow); Glucose,Urine (UA) >=1000 mg/dL (Normal); Ketones,Urine Negative (Negative); Leukocyte Esterase,Urine Negative (Negative); Nitrite,Urine Negative (Negative); Protein,Urine Negative (Neg-Trace); Specific Gravity,Urine 1.022 (1.010-1.025); Urobilinogen,Urine Normal (Normal)
[2018-09-24 08:26] LABS: Basophils % 0.1 %; Eosinophils % 0.1 %; Hemoglobin 11.4 g/dL (12.9-16.9); Immature Granulocytes % 0.9 % (0-4); Lymphocytes # 0.5 K/mcL (0.6-4.6); Lymphocytes % 2.1 %; Mean Corpuscular HGB Conc 32.6 g/dL (31.6-35.5); Mean Corpuscular Hemoglobin 28.1 pg (28.0-33.3); Mean Corpuscular Volume 86.4 fL (83.0-100.0); Mean Platelet Volume 10.8 fL (9.4-12.4); Monocytes # 1.5 K/mcL (0.0-1.3); Monocytes % 6.3 %; Neutrophils # 20.9 K/mcL (1.6-8.9); Platelet Count 265 K/mcL (140-400); Red Blood Count 4.05 M/mcL (4.19-5.50); Segmented Neutrophils % 90.5 %
[2018-09-24] MEDS ORDERED: Piperacillin/Tazobactam 3.375 GM in 0.9 % Sodium Chloride Mini Bag 100 ML IVPB ONE (08:48)
[2018-09-24 09:01] LABS: BUN/Creatinine Ratio 41 (6-26); Blood Urea Nitrogen 91 mg/dL (8-23); Calcium 8.9 mg/dL (8.6-10.3); Carbon Dioxide 39 mEq/L (23-29); Chloride 75 mEq/L (98-107); Glucose 883 mg/dL (70-105); Osmolality,Calculated 326 (280-300); Potassium 3.7 mEq/L (3.5-5.1); Sodium 122 mEq/L (136-145); Troponin I < 0.03 ng/mL (< 0.04); eGFR For Non-African Americans 29 (> 60)
[2018-09-24] MEDS ORDERED: Insulin Human Regular 10 UNIT in 0.9 % Sodium Chloride 10 ML IV ONE ×2 (09:06→11:22)
[2018-09-24] MEDS ORDERED: 0.9 % Sodium Chloride 1,000 ML IVC SCH ×2 (09:30→14:19)
[2018-09-24 09:39] LABS: Magnesium 2.3 mg/dL (1.6-2.6); Phosphorous 3.9 mg/dL (2.7-4.5)
--- NOTE | 2018-09-24 11:27 | Internal Med History&Physical ---
Date of Encounter: 09/24/18 Time of Encounter: 11:19 Internal Medicine - H&P: HPI Chief complaint: altered mental status and increase blood glucose level Admitted From: Emergency Dept History of present illness: 72-year-old male with COPD, hypertension, tobacco use, dementia, paroxysmal atrial fibrillation (on NOAC per med list, patient is unable to confirm), hyperlipidemia, systemic hypertension, chronic anemia, obesity presented to the ER from [facility] with a brief run of atrial fibrillation with RVR and altered mental status of 2 day duration. He does not have prior history of diabetes mellitus but was found to have BG > 800, and treated with IV fluids and one dose of IV insulin in ER. At the time of my evaluation, he is already feeling better He reports that he started having polyuria abut 2 weeks ago and felt mildly confused. No other associated symptoms. A pertinent 10-point ROS is otherwise negative for headache, dizziness, fevers, chills, cough, sputum, n, v, abd pain, d, c, dysuria, chest pain, dyspnea, focal motor deficits or other symptoms. # Diabetes mellitus, new-onset, uncontrolled # Pseudohypnatremia # Dehydration due to above # Hypotension due to above # Acute kidney injury likely due to above - BG 883 on admission, corrected Na 141, HCO3 39, btea hydroxybutyric acid 0.47, urine negative for ketones, possibly HHS - Cr 0.9 ---> 2.2 - Hold furosemide, diclofenac, avoid nephrotoxic - Considering rapid improvement in ER after one dose of IV insulin, I will check labs again, and would probably be able to treat with subcutaneous insulin. Basal bolus with cautious uptitration considering insulin-naive patient with CONSTANCE, to avoid insulin stacking. - Would have a low threshold to treat with IV insulin - Cont IVF with KCl - Check HbA1C, lipid panel, TSH - Considering hypotension and prednisone listed as home medicine, will check random cortisol. If low, will closely monitor to decide if he needs stress dose steroids # Leukocytosis WBC 23k - CXR suggested LLL infiltrate vs atelectasis, patient denies fever, cough, sputum - leukocytosis can be due to stress - s/p IV vancomycin and Zosyn in ER for presumed HCAP so he is well-covered for now especially with CONSTANCE, will hold further antibiotics, start incentive spirometry and recheck CXR PA/Lat in the morning - If CXR in AM shows persistent infiltrate, or if he develops fever or clinical S/S of sepsis or shock, can restart antibiotics - Blood culture pending - Viral resp screen pending # Systemic HTN at baseline - Hold amlodipine due to hypotension - Hold losartan/HCTZ due to CONSTANCE - Hold atenolol due to hypotension, when BP improves will start BB before other agents to avoid withdrawal tachycardia and RVR from a-fib # Paroxysmal atrial fibrillation - Apixaban listed on med list but patient unable to confirm - Hold apixaban today due to CONSTANCE and unclear history - Also unclear why he is on ASA 325, will start 81 for now and reassess # COPD, without acute exacerbation - Cont Symbicort - Cont bronchodilator nebs prn - # Hypothyroidism - unclear why he is on such low sullivan of 25 mcg; continue and check TSH - check TSH # Altered mental status on admission, likely due to hyperglycemia, CONSTANCE, retention of drugs # Dementia - Cont donepezil and memantine - hold tinazidine until mental status more clear and renal function better # Hx NH in Cont ASA # VTE prophy heparin SubQ # Disposition Full code, discussed Past Med Surg Social Fam HX - Past Medical History Medical history: arthritis, atrial fibrillation, COPD, hyperlipidemia, hypertension, myocardial infarction, other Additional medical history: PVD Psychiatric history: no psych history, other - Past Surgical History Surgical History: non-contributory Additional surgical history: Right Knee - Social History Smoking Status: Current every day smoker Smokeless Tobacco Status: No Alcohol use: none Drug use: none - Family History Father Family Member Ethnicity: Non- Living Status: Hx Family Cardiac Disorders: Yes (HD) Mother Family Member Ethnicity: Non- Living Status: Sister Family Member Ethnicity: Non- Living Status: Hx Family Cardiac Disorders: Yes (NH, HD) Internal Medicine - H&P: Meds RX: Albuterol Sulfate [Albuterol Inhaler] 2 puff IH Q4HR PRN 12/16/16 [History] RX: Ascorbate Calcium [Vitamin C] 500 mg PO DAILY 12/16/16 [History] RX: Aspirin 325 mg PO DAILY 12/16/16 [History] RX: Atenolol 100 mg PO DAILY 12/16/16 [History] RX: Budesonide/Formoterol 160/4.5 [Symbicort 160/4.5] 2 puff IH BIDR 12/16/16 [History] RX: Capsaicin 0.025% [Trixaicin] 1 appl TP TID 12/16/16 [History] RX: Cholecalciferol (D-3) [Vitamin D] 2,000 unit PO DAILY 12/16/16 [History] RX: Donepezil [Aricept] 10 mg PO HS 12/16/16 [History] RX: Ferrous Sulfate [Iron] 325 mg PO DAILY 12/16/16 [History] RX: Finasteride [Proscar] 5 mg PO HS 12/16/16 [History] RX: GuaiFENesin/Dextromethorphan [Robitussin Cough-Chest Dm Liq] 10 ml PO Q4H PRN 12/16/16 [History] RX: Hydrocortisone 1% CREAM [Cortaid] 1 appl TP DAILY PRN 12/16/16 [History] RX: Ipratropium/Albuterol Neb [Duoneb] 3 ml IH Q6HR PRN 12/16/16 [History] RX: Loperamide [Imodium] 2 mg PO QID PRN 12/16/16 [History] RX: Losartan/Hydrochlorothiazide [Hyzaar 100-25 Tablet] 1 each PO DAILY 12/16/16 [History] RX: Multivitamin [One Daily Essential] 1 each PO DAILY 12/16/16 [History] RX: Simvastatin [Zocor] 40 mg PO HS 12/16/16 [History] RX: Tamsulosin [Flomax] 0.4 mg PO HS 12/16/16 [History] RX: Tizanidine HCl 4 mg PO Q8H PRN 12/16/16 [History] RX: amLODIPine [Norvasc] 5 mg PO DAILY 12/16/16 [History] RX: hydroCHLOROthiazide [Hydrochlorothiazide] 12.5 mg PO DAILY 12/16/16 [History] RX: Lactobacillus [Culturelle] 2 each PO BID 11/11/17 [History] RX: Memantine [Namenda] 5 mg PO DAILY 11/11/17 [History] RX: Sertraline [Zoloft] 12.5 mg PO DAILY 11/11/17 [History] RX: Bismuth Subsalicylate [Pepto-Bismol] 524 mg PO QID PRN 01/06/18 [History] RX: Apixaban [Eliquis] 5 mg PO BID #30 tablet 01/09/18 [Rx] RX: Guaifenesin [Mucus Relief] 600 mg PO BID PRN #0 01/09/18 [Rx] RX: Methyl Salicylate/Menthol [Bengay] 1 appl TP BID PRN tube 01/09/18 [Rx] RX: OxyCODONE Immed Rel [Roxicodone 5 MG] 5 - 10 mg PO Q6HR PRN 1 Days #4 tablet 01/09/18 [Rx] Diclofenac Sodium [Voltaren] 1 appl TP QID 09/24/18 [History] Famotidine [Acid Logging Equipment Operator] 10 mg PO DAILY 09/24/18 [History] Furosemide [Lasix] 20 mg PO DAILY 09/24/18 [History] Levothyroxine [Synthroid] 25 mcg PO DAILY 09/24/18 [History] Ondansetron [Zofran] 8 mg PO Q8H PRN 09/24/18 [History] RX: Melatonin 5 mg PO HS 09/24/18 [History] RX: predniSONE [PredniSONE] 10 mg PO DAILY 09/24/18 [History] Allergy/AdvReac Type Severity Reaction Status Date / Time No Known Allergies Allergy Verified 01/06/18 12:32 All Systems PM: A 10-system review of systems was performed and is negative for pertinent findings except as documented above in the HPI. - Constitutional Vitals: Temp Pulse Resp BP Pulse Ox 98.3 F 122 18 97/63 94 09/24/18 07:52 09/24/18 10:50 09/24/18 10:50 09/24/18 10:50 09/24/18 10:50 Exam: awake, no resp distress, lying in bed dry oral mucosa no nuchal rigidity no icterus, no conjunctival injection S1, S2, irregular, no MRG CTABL, with decreased breath sounds at bases Soft, NT, ND, no guarding or rebound Alert, oriented to August 2019, [facility], no dysarthria or focal motor deficits no ankle edema normal affect Internal Med - H&P Results - Labs CBC & Chem 7: 09/24/18 08:10 09/24/18 08:10 Labs: Short CBC 09/24/18 Range/Units 08:10 WBC 23.1 H (4.3-11.1) K/mcL Hgb 11.4 L (12.9-16.9) g/dL Hct 35.0 L (37.5-50.1) % Plt Count 265 (140-400) K/mcL Neutrophils # 20.9 H (1.6-8.9) K/mcL BMP 09/24/18 08:10 Sodium 122 L Potassium 3.7 Chloride 75 L Carbon Dioxide 39 H BUN 91 H Creatinine 2.22 H Glucose 883 H* Calcium 8.9 Cardiac Enzymes 09/24/18 Range/Units 08:10 Troponin I < 0.03 (< 0.04) ng/mL Urine 09/24/18 Range/Units 08:00 Urine Color Yellow (Yellow) Urine Clarity Clear (Clear) Urine pH 6.0 (5.0-8.0) pH Units Ur Specific [place] 1.022 (1.010-1.025) Urine Protein Negative (Neg-Trace) mg/dL Urine Glucose (UA) >=1000 H (Normal) mg/dL - Impressions ITS Impressions Chest X-Ray 09/24/18 08:06 IMPRESSION: Left lower lobe atelectasis or infiltrate. Recommend radiographic follow-up until resolution. D/ /24/2018 09:08:59 Brayden Green MD / gloria Interpreting Provider: Brayden Green MD - Time Spent With Patient Total time spent is greater than 50% in coordination of care (as documented) at patient's floor/unit and/or counseling patient:
[2018-09-24] MEDS ORDERED: D5% in Water 1,000 ML IVC PRN (14:05)
[2018-09-24] MEDS ORDERED: Dextrose Gel 15 GM/37.5 ML TUBE PO PRN ×2 (14:05)
[2018-09-24] MEDS ORDERED: *HR* Dextrose 50 % in Water (Syg) 50 ML SYRINGE IVP PRN (14:05)
[2018-09-24] MEDS ORDERED: Ipratropium/Albuterol Neb 3 ML IH PRN (14:09)
[2018-09-24 14:49] LABS: Estimated Average Glucose 298 mg/dl
[2018-09-24 15:16] LABS: Mean Corpuscular Hemoglobin 28.4 pg (28.0-33.3); Red Cell Distribution Width 13.9 % (11.5-14.5)
[2018-09-24 15:17] LABS: Hematocrit 32.8 % (37.5-50.1); Hemoglobin 11.2 g/dL (12.9-16.9); Mean Corpuscular HGB Conc 34.1 g/dL (31.6-35.5); Mean Platelet Volume 10.2 fL (9.4-12.4); Platelet Count 290 K/mcL (140-400); Red Blood Count 3.95 M/mcL (4.19-5.50)
[2018-09-24 15:36] LABS: Chol/HDL Ratio 4.6 (0-4.9)
[2018-09-24 15:41] LABS: Calcium 8.8 mg/dL (8.6-10.3); Magnesium 2.3 mg/dL (1.6-2.6); Potassium 3.3 mEq/L (3.5-5.1)
[2018-09-24 15:49] LABS: Thyroid Stimulating Hormone 1.365 mcIU/mL (0.340-5.600)
[2018-09-24] MEDS: Insulin LISPRO 300 UNITS/3 ML VIAL SQ SCH ×2 (16:32→16:33)
[2018-09-24] MEDS: 0.9 % Sodium Chloride w KCl 20 MEQ/1,000 ML MLS IVC SCH ×2 (16:32→21:51)
[2018-09-24] MEDS: Budesonide/Formoterol 160/4.5 1 PUFF INH IH SCH (19:57)
[2018-09-24] MEDS ORDERED: Insulin DETEMIR 100 UNIT/ML X5UNITS SQ SCH (21:00)
[2018-09-24] MEDS ORDERED: Insulin LISPRO 300 UNITS/3 ML VIAL SQ SCH (21:00)
[2018-09-24 21:27] LABS: Calcium 8.2 mg/dL (8.6-10.3); Potassium 3.2 mEq/L (3.5-5.1)
[2018-09-24] MEDS: Finasteride 5 MG TABLET PO SCH (21:48)
[2018-09-24] MEDS: Melatonin 3 MG TABLET PO SCH (21:48)
[2018-09-25] MEDS: 0.9 % Sodium Chloride w KCl 20 MEQ/1,000 ML MLS IVC SCH ×2 (03:00→08:11)
[2018-09-25 03:39] LABS: Hematocrit 28.6 % (37.5-50.1); Hemoglobin 9.5 g/dL (12.9-16.9); Mean Corpuscular HGB Conc 33.2 g/dL (31.6-35.5); Mean Corpuscular Hemoglobin 28.5 pg (28.0-33.3); Mean Corpuscular Volume 85.9 fL (83.0-100.0); Mean Platelet Volume 10.2 fL (9.4-12.4); Platelet Count 238 K/mcL (140-400); Red Blood Count 3.33 M/mcL (4.19-5.50); Red Cell Distribution Width 13.8 % (11.5-14.5)
[2018-09-25 03:50] LABS: BUN/Creatinine Ratio 46 (6-26); Blood Urea Nitrogen 54 mg/dL (8-23); Calcium 7.9 mg/dL (8.6-10.3); Carbon Dioxide 34 mEq/L (23-29); Chloride 97 mEq/L (98-107); Glucose 239 mg/dL (70-105); Magnesium 1.9 mg/dL (1.6-2.6); Osmolality,Calculated 307 (280-300); Phosphorous 1.1 mg/dL (2.7-4.5); Potassium 3.5 mEq/L (3.5-5.1); Sodium 137 mEq/L (136-145); eGFR For Non-African Americans > 60 (> 60)
[2018-09-25] MEDS: Levothyroxine 25 MCG TABLET PO SCH (05:13)
[2018-09-25] MEDS ORDERED: Bismuth Subsalicylate 262 MG TABLET PO PRN (08:02)
[2018-09-25] MEDS: Famotidine 20 MG TABLET PO SCH (08:11)
[2018-09-25] MEDS: Aspirin 81 MG TAB.CHEW PO SCH (08:11)
[2018-09-25] MEDS: Insulin LISPRO 300 UNITS/3 ML VIAL SQ SCH ×7 (08:12→22:02)
[2018-09-25] MEDS: Budesonide/Formoterol 160/4.5 1 PUFF INH IH SCH ×2 (08:16→20:39)
--- NOTE | 2018-09-25 08:31 | Internal Med Progress Note ---
Hospitalist Progress Note - Encounter Date of Encounter: 09/25/18 Time of Encounter: 10:30 - Subjective Interval History: Patient lying down in bed. Comfortable. No chest pain or palpitations. Somnolent but easily awakes. Shortness of breath improving. No fever reported overnight. - Exam Vitals: Temp Pulse Resp BP Pulse Ox 98.3 F 96 16 127/79 100 09/25/18 07:13 09/25/18 07:13 09/25/18 08:16 09/25/18 07:13 09/25/18 08:16 Exam: General: Patient is somnolent but easily awakes, mild distress, oriented x 3 ENT: Mucous membranes moist Respiratory: Decreased breath sounds at both bases, no wheezing Cardiovascular: No gallops, or murmurs. Irregularly irregular rhythm with tachycardia. No pedal edema Abdomen: Abdomen is soft, nontender. Bowel sounds are present Musculoskeletal: Spontaneously moving all extremities Skin: warm, dry, intact. Neuro: Alert oriented x 3 normal cranial nerves, no focal deficits - Assessment and Plan (1) Pneumonia Current Visit: Yes Status: Suspected Assessment and Plan: Patient does have leukocytosis and chest x-ray shows improving left lower lobe air space disease. No indication for broad-spectrum antibiotics. Will place patient on Levaquin. Continue supportive care. (2) Diabetes mellitus Current Visit: Yes Status: Chronic Assessment and Plan: Uncontrolled. Will increase insulin regimen. (3) Hypothyroidism Current Visit: Yes Status: Chronic Assessment and Plan: Continue levothyroxine (4) Atrial fibrillation Current Visit: Yes Status: Chronic Assessment and Plan: Patient is tachycardic. Resume atenolol. On anticoagulation with eliquis. (5) COPD (chronic obstructive pulmonary disease) Current Visit: Yes Status: Chronic Assessment and Plan: continue bronchodilators, O2 supplementation. (6) Dementia Current Visit: Yes Status: Chronic Assessment and Plan: Continue Aricept and Namenda (7) HTN (hypertension) Current Visit: Yes Status: Chronic Assessment and Plan: Blood pressure is well controlled at this time DVT Prophylaxis: On eliquis - Time Spent with Patient Total time spent is greater than 50% in coordination of care (as documented) at patient's floor/unit and/or counseling patient: Internal Medicine: Result - Labs CBC & Chem 7: 09/25/18 03:02 09/25/18 03:02 Labs: Short CBC 09/24/18 09/24/18 09/25/18 Range/Units 08:10 15:00 03:02 WBC 23.1 H 25.2 H 19.3 H (4.3-11.1) K/mcL Hgb 11.4 L 11.2 L 9.5 L D (12.9-16.9) g/dL Hct 35.0 L 32.8 L 28.6 L (37.5-50.1) % Plt Count 265 290 238 (140-400) K/mcL Neutrophils # 20.9 H (1.6-8.9) K/mcL BMP 09/24/18 09/24/18 09/24/18 08:10 15:00 20:54 Sodium 122 L 133 L D 136 Potassium 3.7 3.3 L 3.2 L Chloride 75 L 88 L 93 L Carbon Dioxide 39 H 33 H 37 H BUN 91 H 76 H 64 H Creatinine 2.22 H 1.77 H 1.41 H Glucose 883 H* 240 H 108 H Calcium 8.9 8.8 8.2 L 09/25/18 03:02 Sodium 137 Potassium 3.5 Chloride 97 L Carbon Dioxide 34 H BUN 54 H Creatinine 1.17 Glucose 239 H Calcium 7.9 L Cardiac Enzymes 09/24/18 Range/Units 08:10 Troponin I < 0.03 (< 0.04) ng/mL - Impressions Impressions Chest X-Ray 09/24/18 08:06 IMPRESSION: Left lower lobe atelectasis or infiltrate. Recommend radiographic follow-up until resolution. D/ /24/2018 09:08:59 Brayden Green MD / gloria Interpreting Provider: Brayden Green MD Consult Discharge Plan - Plan Referrals: August Montejo MD [Primary Care Provider] - (1) Pneumonia Qualifiers: Pneumonia type: due to Pneumococcus Laterality: left Lung location: lower lobe of lung Qualified Code(s): J13 - Pneumonia due to Streptococcus pneumoniae (2) Diabetes mellitus Qualifiers: Diabetes mellitus type: type 2 Diabetes mellitus terminal press operator insulin use: without terminal press operator use Diabetes mellitus complication status: with hyperglycemia Qualified Code(s): E11.65 - Type 2 diabetes mellitus with hyperglycemia (3) Hypothyroidism Qualifiers: Hypothyroidism type: other Qualified Code(s): E03.8 - Other specified hypothyroidism (4) Atrial fibrillation Qualifiers: Atrial fibrillation type: chronic Qualified Code(s): I48.2 - Chronic atrial fibrillation (5) COPD (chronic obstructive pulmonary disease) Qualifiers: COPD type: unspecified COPD Qualified Code(s): J44.9 - Chronic obstructive pulmonary disease, unspecified (6) Dementia Qualifiers: Dementia type: unspecified type Dementia behavioral disturbance: without behavioral disturbance Qualified Code(s): F03.90 - Unspecified dementia without behavioral disturbance (7) HTN (hypertension) Qualifiers: Hypertension type: essential hypertension Qualified Code(s): I10 - Essential (primary) hypertension
[2018-09-25 10:05] LABS: Adenovirus Not Detected (Not Detect); Bordetella Pertussis Not Detected (Not Detect); Chlamydophila pneumoniae Not Detected (Not Detect); Coronavirus 229E Not Detected (Not Detect); Coronavirus HKU1 Not Detected (Not Detect); Coronavirus NL63 Not Detected (Not Detect); Coronavirus OC43 Not Detected (Not Detect); Human Metapneumovirus Not Detected (Not Detect); Human Rhinovirus/Enterovirus Not Detected (Not Detect); Influenza A Subtype 2009 H1 Not Detected (Not Detect); Influenza A Untypeable Not Detected (Not Detect); Influenza B Not Detected (Not Detect); Mycoplasma pneumoniae Not Detected (Not Detect); Parainfluenza Virus 1 Not Detected (Not Detect); Parainfluenza Virus 2 Not Detected (Not Detect); Parainfluenza Virus 3 Not Detected (Not Detect); Parainfluenza Virus 4 Not Detected (Not Detect); Respiratory Syncytial Virus Not Detected (Not Detect)
[2018-09-25] MEDS: Apixaban 5 MG TABLET PO SCH ×2 (12:50→22:01)
[2018-09-25] MEDS: Lactobacillus 1 EACH CAP.SPRINK PO SCH ×2 (12:50→22:01)
[2018-09-25] MEDS: Capsaicin 0.025% 60 GM TUBE TP SCH ×3 (12:51→22:02)
[2018-09-25] MEDS: Levofloxacin 750 MG/150 ML 750 MG/150 ML BAG IVPB SCH (13:00)
[2018-09-25] MEDS: Insulin DETEMIR 100 UNIT/ML X5UNITS SQ SCH ×2 (16:55→22:01)
[2018-09-25] MEDS: Finasteride 5 MG TABLET PO SCH (22:01)
[2018-09-25] MEDS: Melatonin 3 MG TABLET PO SCH (22:01)
[2018-09-26 04:58] LABS: Basophils % 0.2 %; Eosinophils % 0.1 %; Hematocrit 28.8 % (37.5-50.1); Hemoglobin 9.1 g/dL (12.9-16.9); Immature Granulocytes % 1.5 % (0-4); Lymphocytes # 0.6 K/mcL (0.6-4.6); Lymphocytes % 2.8 %; Mean Corpuscular HGB Conc 31.6 g/dL (31.6-35.5); Mean Corpuscular Hemoglobin 28.1 pg (28.0-33.3); Mean Corpuscular Volume 88.9 fL (83.0-100.0); Monocytes # 1.2 K/mcL (0.0-1.3); Monocytes % 5.7 %; Platelet Count 261 K/mcL (140-400); Red Blood Count 3.24 M/mcL (4.19-5.50); Red Cell Distribution Width 14.3 % (11.5-14.5); Segmented Neutrophils % 89.7 %
[2018-09-26 05:19] LABS: BUN/Creatinine Ratio 39 (6-26); Blood Urea Nitrogen 33 mg/dL (8-23); Calcium 8.4 mg/dL (8.6-10.3); Carbon Dioxide 36 mEq/L (23-29); Chloride 99 mEq/L (98-107); Glucose 163 mg/dL (70-105); Osmolality,Calculated 297 (280-300); Potassium 3.6 mEq/L (3.5-5.1); Sodium 138 mEq/L (136-145); eGFR For Non-African Americans > 60 (> 60)
[2018-09-26] MEDS: 0.9 % Sodium Chloride w KCl 20 MEQ/1,000 ML MLS IVC SCH (06:16)
[2018-09-26] MEDS: Levothyroxine 25 MCG TABLET PO SCH (06:22)
[2018-09-26] MEDS: Budesonide/Formoterol 160/4.5 1 PUFF INH IH SCH ×2 (07:52→20:04)
[2018-09-26] MEDS: Famotidine 20 MG TABLET PO SCH (09:54)
[2018-09-26] MEDS: Aspirin 81 MG TAB.CHEW PO SCH (09:54)
[2018-09-26] MEDS: Lactobacillus 1 EACH CAP.SPRINK PO SCH ×2 (09:55→22:30)
[2018-09-26] MEDS: Levofloxacin 750 MG/150 ML 750 MG/150 ML BAG IVPB SCH (09:58)
[2018-09-26] MEDS: Insulin DETEMIR 100 UNIT/ML X5UNITS SQ SCH ×2 (10:02→22:31)
[2018-09-26] MEDS: Insulin LISPRO 300 UNITS/3 ML VIAL SQ SCH ×7 (10:03→22:32)
[2018-09-26] MEDS: Apixaban 5 MG TABLET PO SCH ×2 (10:05→22:30)
[2018-09-26] MEDS: Capsaicin 0.025% 60 GM TUBE TP SCH ×3 (10:05→22:32)
--- NOTE | 2018-09-26 13:00 | Electrocardiograph Report ---
[facility] Test Date: 2018-09-24 Pat Name: Dariel Lay Department: EXAM1 Room: 2A36 Gender: M Brand Director: : 1945 Requested By: Stu Ascencio Order Number: [id number] Reading MD: Andrew Pagan Measurements Intervals [employer] Rate: 117 P: NE: QRS: 47 QRSD: 114 T: 243 QT: 312 QTc: 436 Interpretive Statements Atrial flutter with predominant 2:1 AV block Ventricular premature complex Borderline intraventricular conduction delay Repol abnrm suggests ischemia, diffuse leads Electronically Signed On 09-26-2018 12:59:10 EST by Andrew Pagan
--- NOTE | 2018-09-26 13:35 | Internal Med Progress Note ---
Hospitalist Progress Note - Encounter Date of Encounter: 09/26/18 Time of Encounter: 13:35 - Subjective Interval History: Patient was somnolent when I evaluated him earlier today. However ninth checking on him later again, he is sitting up in chair and eating much better. He denies any significant shortness of breath or fever. No cough or chest pain reported. No nausea or vomiting. Denies palpitations - Exam Vitals: Temp Pulse Resp BP Pulse Ox 98.6 F 90 18 102/67 99 09/26/18 11:38 09/26/18 11:38 09/26/18 11:38 09/26/18 11:38 09/26/18 11:38 Exam: General: Patient is alert, no acute distress, oriented x 1 ENT: Mucous membranes moist Respiratory: Decreased breath sounds at both bases. Cardiovascular: Irregularly irregular rhythm, tachycardia, no pedal edema. Abdomen: Abdomen is soft, nontender. Bowel sounds are present Musculoskeletal: Spontaneously moving all extremities Skin: warm, dry, intact. Neuro: Alert oriented x 1 normal cranial nerves, no focal deficits - Assessment and Plan (1) Pneumonia Current Visit: Yes Status: Suspected Assessment and Plan: Patient is currently on Levaquin. WBC count slightly worse today. Will howev er, patient looks clinically better. He has not had any further episodes of fever. We will continue Levaquin. Blood cultures have been negative. Continue O2 supplementation. Moderate risk for complications. Possible discharge tomorrow to see count remains stable or improves. If it worsens, patient will need further workup which may include CT scan of the chest and pulmonary consultation. (2) Diabetes mellitus Current Visit: Yes Status: Chronic Assessment and Plan: Uncontrolled blood sugars. We will increase his Levemir dosage to 15 units twice a day. Increased nutritional coverage to 8 units 3 times a day and continue sliding scale coverage at high correctional dosing. (3) Hypothyroidism Current Visit: Yes Status: Chronic Assessment and Plan: Continue levothyroxin (4) Atrial fibrillation Current Visit: Yes Status: Chronic Assessment and Plan: Heart rate was elevated again earlier today but has since improved. Continue atenolol. On anticoagulation with Eliquis (5) COPD (chronic obstructive pulmonary disease) Current Visit: Yes Status: Chronic Assessment and Plan: Continue bronchodilators as needed. Patient is not in acute exacerbation (6) Dementia Current Visit: Yes Status: Chronic Assessment and Plan: Continue Aricept and Namenda (7) HTN (hypertension) Current Visit: Yes Status: Chronic Assessment and Plan: Blood pressure is currently well controlled. Continue atenolol DVT Prophylaxis: On Eliquis - Time Spent with Patient Total time spent is greater than 50% in coordination of care (as documented) at patient's floor/unit and/or counseling patient: Internal Medicine: Result - Labs CBC & Chem 7: 09/26/18 04:22 09/26/18 04:22 Labs: Short CBC 09/26/18 Range/Units 04:22 WBC 21.2 H (4.3-11.1) K/mcL Hgb 9.1 L (12.9-16.9) g/dL Hct 28.8 L (37.5-50.1) % Plt Count 261 (140-400) K/mcL Neutrophils # 19.0 H (1.6-8.9) K/mcL BMP 09/26/18 04:22 Sodium 138 Potassium 3.6 Chloride 99 Carbon Dioxide 36 H BUN 33 H Creatinine 0.84 Glucose 163 H Calcium 8.4 L Consult Discharge Plan - Plan Referrals: August Montejo MD [Primary Care Provider] - (1) Pneumonia Qualifiers: Pneumonia type: due to Pneumococcus Laterality: left Lung location: lower lobe of lung Qualified Code(s): J13 - Pneumonia due to Streptococcus pneumoniae (2) Diabetes mellitus Qualifiers: Diabetes mellitus type: type 2 Diabetes mellitus mcfp insulin use: without ferry terminal supervisor use Diabetes mellitus complication status: with hyperglycemia Qualified Code(s): E11.65 - Type 2 diabetes mellitus with hyperglycemia (3) Hypothyroidism Qualifiers: Hypothyroidism type: other Qualified Code(s): E03.8 - Other specified hypothyroidism (4) Atrial fibrillation Qualifiers: Atrial fibrillation type: chronic Qualified Code(s): I48.2 - Chronic atrial fibrillation (5) COPD (chronic obstructive pulmonary disease) Qualifiers: COPD type: unspecified COPD Qualified Code(s): J44.9 - Chronic obstructive pulmonary disease, unspecified (6) Dementia Qualifiers: Dementia type: unspecified type Dementia behavioral disturbance: without behavioral disturbance Qualified Code(s): F03.90 - Unspecified dementia without behavioral disturbance (7) HTN (hypertension) Qualifiers: Hypertension type: essential hypertension Qualified Code(s): I10 - Essential (primary) hypertension
[2018-09-26] MEDS: Finasteride 5 MG TABLET PO SCH (22:30)
[2018-09-26] MEDS: Melatonin 3 MG TABLET PO SCH (22:32)
--- NOTE | 2018-09-27 05:13 | Event Note ---
Date of Encounter: 09/27/18 Time of Encounter: 04:[address] Hopkins of heart rate sustaining in 120's, patient asymptomatic. EKG ordered, shows afib/aflutter with rvr. Assessed patient at bedside, heart rate now sustaining 100-105, remains asymptomatic. Will give morning atenolol dose now early. Nurse to notify of any other changes or if heart rate does not continue to come down.
[2018-09-27] MEDS: Levothyroxine 25 MCG TABLET PO SCH (05:35)
[2018-09-27 07:09] LABS: Basophils % 0.2 %; Eosinophils # 0.1 K/mcL (0.0-0.6); Eosinophils % 0.5 %; Hematocrit 28.3 % (37.5-50.1); Hemoglobin 8.8 g/dL (12.9-16.9); Immature Granulocytes % 1.2 % (0-4); Lymphocytes # 0.8 K/mcL (0.6-4.6); Lymphocytes % 4.4 %; Mean Corpuscular HGB Conc 31.1 g/dL (31.6-35.5); Mean Corpuscular Hemoglobin 27.7 pg (28.0-33.3); Mean Platelet Volume 9.9 fL (9.4-12.4); Monocytes # 1.2 K/mcL (0.0-1.3); Neutrophils # 15.1 K/mcL (1.6-8.9); Platelet Count 280 K/mcL (140-400); Red Blood Count 3.18 M/mcL (4.19-5.50); Red Cell Distribution Width 14.4 % (11.5-14.5); Segmented Neutrophils % 86.7 %
[2018-09-27 07:30] LABS: BUN/Creatinine Ratio 26 (6-26); Blood Urea Nitrogen 23 mg/dL (8-23); Calcium 8.3 mg/dL (8.6-10.3); Carbon Dioxide 36 mEq/L (23-29); Chloride 96 mEq/L (98-107); Glucose 279 mg/dL (70-105); Osmolality,Calculated 296 (280-300); Potassium 3.7 mEq/L (3.5-5.1); Sodium 136 mEq/L (136-145); eGFR For Non-African Americans > 60 (> 60)
[2018-09-27] MEDS: Budesonide/Formoterol 160/4.5 1 PUFF INH IH SCH ×2 (07:35→19:47)
--- NOTE | 2018-09-27 07:57 | Internal Med Progress Note ---
Hospitalist Progress Note - Encounter Date of Encounter: 09/27/18 Time of Encounter: 07:50 - Subjective Interval History: 72-year-old male with COPD, hypertension, tobacco use, dementia, paroxysmal atrial fibrillation (on NOAC per med list, patient is unable to confirm), hyperlipidemia, systemic hypertension, chronic anemia, obesity presented to the ER from [facility] with a brief run of atrial fibrillation with RVR and altered mental status of 2 day duration likely secondary to sepsis from pneumonia - Exam Vitals: Temp Pulse Resp BP Pulse Ox 97.8 F 76 17 112/78 98 09/27/18 07:10 09/27/18 07:10 09/27/18 07:10 09/27/18 07:10 09/27/18 07:10 Exam: General: Patient is alert, no acute distress, oriented x 1 ENT: Mucous membranes moist Respiratory: Decreased breath sounds at both bases. Cardiovascular: Irregularly irregular rhythm, tachycardia, no pedal edema. Abdomen: Abdomen is soft, nontender. Bowel sounds are present Musculoskeletal: Spontaneously moving all extremities Skin: warm, dry, intact. Neuro: Alert oriented x 1 normal cranial nerves, no focal deficits - Assessment and Plan (1) Sepsis Current Visit: Yes Status: Acute Assessment and Plan: Pt came in with leuocytosis, elevated HR and pneumonia. Improving on levaquin (2) COPD (chronic obstructive pulmonary disease) Current Visit: Yes Status: Chronic Assessment and Plan: Has active wheezes suggestive of COPD exacerbation. Continue nebs and steroids (3) Dementia Current Visit: Yes Status: Chronic Assessment and Plan: Continue Aricept and Namenda (4) Atrial fibrillation Current Visit: Yes Status: Chronic Assessment and Plan: Heart rate was elevated again earlier today but has since improved. Continue atenolol. On anticoagulation with Eliquis (5) Pneumonia Current Visit: Yes Status: Suspected Assessment and Plan: Patient is currently on Levaquin. WBC count slightly worse today. Will however, patient looks clinically better. He has not had any further episodes of fever. Leukocytosis improving (6) HTN (hypertension) Current Visit: Yes Status: Chronic Assessment and Plan: Blood pressure is currently well controlled. Continue atenolol (7) Diabetes mellitus Current Visit: Yes Status: Chronic Assessment and Plan: Uncontrolled blood sugars. We will increase his Levemir dosage to 15 units twice a day. Increased nutritional coverage to 8 units 3 times a day and continue sliding scale coverage at high correctional dosing. (8) Hypothyroidism Current Visit: Yes Status: Chronic Assessment and Plan: Continue levothyroxin DVT Prophylaxis: On Eliquis - Time Spent with Patient Total time spent is greater than 50% in coordination of care (as documented) at patient's floor/unit and/or counseling patient: Internal Medicine: Result - Labs CBC & Chem 7: 09/27/18 06:19 09/27/18 06:19 Labs: Short CBC 09/27/18 Range/Units 06:19 WBC 17.4 H (4.3-11.1) K/mcL Hgb 8.8 L (12.9-16.9) g/dL Hct 28.3 L (37.5-50.1) % Plt Count 280 (140-400) K/mcL Neutrophils # 15.1 H (1.6-8.9) K/mcL BMP 09/27/18 06:19 Sodium 136 Potassium 3.7 Chloride 96 L Carbon Dioxide 36 H BUN 23 Creatinine 0.90 Glucose 279 H Calcium 8.3 L Consult Discharge Plan - Plan Referrals: August Montejo MD [Primary Care Provider] - (1) Sepsis Qualifiers: Sepsis type: sepsis due to unspecified organism Qualified Code(s): A41.9 - Sepsis, unspecified organism (2) COPD (chronic obstructive pulmonary disease) Qualifiers: COPD type: unspecified COPD Qualified Code(s): J44.9 - Chronic obstructive pulmonary disease, unspecified (3) Dementia Qualifiers: Dementia type: unspecified type Dementia behavioral disturbance: without behavioral disturbance Qualified Code(s): F03.90 - Unspecified dementia without behavioral disturbance (4) Atrial fibrillation Qualifiers: Atrial fibrillation type: chronic Qualified Code(s): I48.2 - Chronic atrial fibrillation (5) Pneumonia Qualifiers: Pneumonia type: due to Pneumococcus Laterality: left Lung location: lower lobe of lung Qualified Code(s): J13 - Pneumonia due to Streptococcus pneumoniae (6) HTN (hypertension) Qualifiers: Hypertension type: essential hypertension Qualified Code(s): I10 - Essential (primary) hypertension (7) Diabetes mellitus Qualifiers: Diabetes mellitus type: type 2 Diabetes mellitus vermin 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
[2018-09-27] MEDS: Lactobacillus 1 EACH CAP.SPRINK PO SCH ×2 (07:59→20:20)
[2018-09-27] MEDS: Famotidine 20 MG TABLET PO SCH (07:59)
[2018-09-27] MEDS: Apixaban 5 MG TABLET PO SCH ×2 (08:00→20:20)
[2018-09-27] MEDS: Aspirin 81 MG TAB.CHEW PO SCH (08:00)
[2018-09-27] MEDS: Levofloxacin 750 MG/150 ML 750 MG/150 ML BAG IVPB SCH (08:00)
[2018-09-27] MEDS: Insulin LISPRO 300 UNITS/3 ML VIAL SQ SCH ×7 (08:01→20:44)
[2018-09-27] MEDS: Insulin DETEMIR 100 UNIT/ML X5UNITS SQ SCH ×2 (08:01→20:19)
[2018-09-27] MEDS: Capsaicin 0.025% 60 GM TUBE TP SCH ×3 (08:17→20:20)
[2018-09-27] MEDS: Ipratropium/Albuterol Neb 3 ML IH SCH ×5 (09:48→23:11)
[2018-09-27] MEDS: predniSONE 20 MG TABLET PO SCH (10:03)
[2018-09-27] MEDS: Finasteride 5 MG TABLET PO SCH (20:19)
[2018-09-27] MEDS: Melatonin 3 MG TABLET PO SCH (20:20)
[2018-09-28] MEDS: Ipratropium/Albuterol Neb 3 ML IH SCH ×2 (04:24→07:25)
[2018-09-28] MEDS: Levothyroxine 25 MCG TABLET PO SCH (05:30)
[2018-09-28 06:23] LABS: Basophils % 0.2 %; Eosinophils % 0.1 %; Hematocrit 28.3 % (37.5-50.1); Hemoglobin 8.8 g/dL (12.9-16.9); Immature Granulocytes % 1.8 % (0-4); Lymphocytes # 0.7 K/mcL (0.6-4.6); Lymphocytes % 4.1 %; Mean Corpuscular HGB Conc 31.1 g/dL (31.6-35.5); Mean Corpuscular Hemoglobin 28.2 pg (28.0-33.3); Mean Corpuscular Volume 90.7 fL (83.0-100.0); Mean Platelet Volume 9.6 fL (9.4-12.4); Monocytes # 0.9 K/mcL (0.0-1.3); Monocytes % 5.5 %; Neutrophils # 14.5 K/mcL (1.6-8.9); Platelet Count 294 K/mcL (140-400); Red Blood Count 3.12 M/mcL (4.19-5.50); Red Cell Distribution Width 14.5 % (11.5-14.5); Segmented Neutrophils % 88.3 %
[2018-09-28 06:33] LABS: BUN/Creatinine Ratio 25 (6-26); Blood Urea Nitrogen 24 mg/dL (8-23); Calcium 8.6 mg/dL (8.6-10.3); Carbon Dioxide 35 mEq/L (23-29); Chloride 94 mEq/L (98-107); Glucose 163 mg/dL (70-105); Magnesium 1.3 mg/dL (1.6-2.6); Osmolality,Calculated 286 (280-300); Phosphorous 3.1 mg/dL (2.7-4.5); Potassium 4.3 mEq/L (3.5-5.1); Sodium 134 mEq/L (136-145); eGFR For Non-African Americans > 60 (> 60)
[2018-09-28] MEDS: Budesonide/Formoterol 160/4.5 1 PUFF INH IH SCH (07:25)
[2018-09-28] MEDS: Lactobacillus 1 EACH CAP.SPRINK PO SCH (08:19)
[2018-09-28] MEDS: Insulin DETEMIR 100 UNIT/ML X5UNITS SQ SCH (08:19)
[2018-09-28] MEDS: Insulin LISPRO 300 UNITS/3 ML VIAL SQ SCH ×2 (08:20→08:21)
[2018-09-28] MEDS: Famotidine 20 MG TABLET PO SCH (08:20)
[2018-09-28] MEDS: predniSONE 20 MG TABLET PO SCH (08:20)
[2018-09-28] MEDS: Apixaban 5 MG TABLET PO SCH (08:20)
[2018-09-28] MEDS: Aspirin 81 MG TAB.CHEW PO SCH (08:20)
[2018-09-28] MEDS: Levofloxacin 750 MG/150 ML 750 MG/150 ML BAG IVPB SCH (08:21)
[2018-09-28] MEDS: Capsaicin 0.025% 60 GM TUBE TP SCH (08:22)
--- NOTE | 2018-09-28 10:01 | Discharge Summary ---
Orders not resulted at time of discharge: Pending orders 09/29/18 04:00 Basic Metabolic Panel AM 0400 CBC [Complete Blood Count] [HEME] AM 0400 Magnesium AM 0400 Phosphorous AM 0400 09/30/18 04:00 Basic Metabolic Panel AM 0400 CBC [Complete Blood Count] [HEME] AM 0400 Magnesium AM 0400 Phosphorous AM 0400 10/01/18 04:00 Basic Metabolic Panel AM 0400 CBC [Complete Blood Count] [HEME] AM 0400 Magnesium AM 0400 Phosphorous AM 0400 10/02/18 04:00 Basic Metabolic Panel AM 0400 CBC [Complete Blood Count] [HEME] AM 0400 Magnesium AM 0400 Phosphorous AM 0400 10/03/18 04:00 Basic Metabolic Panel AM 0400 CBC [Complete Blood Count] [HEME] AM 0400 Magnesium AM 0400 Phosphorous AM 0400 09/24/18 08:10 Culture,Blood [BC] Stat Date of Encounter: 09/28/18 Time of Encounter: 09:55 - Discharge Diagnosis (1) Sepsis Priority: Primary Status: Acute Assessment and Plan: 72-year-old male with COPD, hypertension, tobacco use, dementia, paroxysmal atrial fibrillation (on NOAC per med list, patient is unable to confirm), hyperlipidemia, systemic hypertension, chronic anemia, obesity presented to the ER from [facility] [place] with a brief run of atrial fibrillation with RVR and altered mental status of 2 day duration. He was assessed with sepsis secondary to likely bacterial pneumonia on admission and COPD exacerbation. Pt came in with leuocytosis, elevated HR and pneumonia. He improved on a regimen of nebs , steroids and antibiotics. He was discharged to complete a course of prednisone and levaquin. He was discharged in a stable condition. 35minutes was spent discharging this patient Qualifiers: Sepsis type: sepsis due to unspecified organism Qualified Code(s): A41.9 - Sepsis, unspecified organism (2) COPD (chronic obstructive pulmonary disease) Priority: Primary Status: Chronic Assessment and Plan: Has active wheezes suggestive of COPD exacerbation. Continue nebs and steroids Qualifiers: COPD type: unspecified COPD Qualified Code(s): J44.9 - Chronic obstructive pulmonary disease, unspecified (3) Dementia Priority: Primary Status: Chronic Qualifiers: Dementia type: unspecified type Dementia behavioral disturbance: without behavioral disturbance Qualified Code(s): F03.90 - Unspecified dementia without behavioral disturbance (4) Atrial fibrillation Priority: Primary Status: Chronic Qualifiers: Atrial fibrillation type: chronic Qualified Code(s): I48.2 - Chronic atrial fibrillation (5) Pneumonia Priority: Primary Status: Suspected Qualifiers: Pneumonia type: due to Pneumococcus Laterality: left Lung location: lower lobe of lung Qualified Code(s): J13 - Pneumonia due to Streptococcus pneumoniae (6) HTN (hypertension) Priority: Primary Status: Chronic Qualifiers: Hypertension type: essential hypertension Qualified Code(s): I10 - Essential (primary) hypertension (7) Diabetes mellitus Priority: Primary Status: Chronic Qualifiers: Diabetes mellitus type: type 2 Diabetes mellitus longwall foreman insulin use: without longwall foreman use Diabetes mellitus complication status: with hyperglycemia Qualified Code(s): E11.65 - Type 2 diabetes mellitus with hyperglycemia (8) Hypothyroidism Priority: Primary Status: Chronic Qualifiers: Hypothyroidism type: other Qualified Code(s): E03.8 - Other specified hypothyroidism Hospital course: Mr. Lay is a 72 year old male - Time Spent with Patient Total time spent providing and/or coordinating discharge services: - Discharge Medications Prescriptions: OxyCODONE Immed Rel [Roxicodone 5 MG] 5 - 10 mg PO Q6HR PRN 1 Days #4 tablet PRN Reason: Pain levoFLOXacin [Levaquin] 750 mg PO DAILY #3 tablet predniSONE [PredniSONE] 40 mg PO DAILY 4 Days #8 tablet Home Medications: Albuterol Sulfate [Albuterol Inhaler] 2 puff IH Q4HR PRN 12/16/16 [History] Ascorbate Calcium [Vitamin C] 500 mg PO DAILY 12/16/16 [History] Aspirin 325 mg PO DAILY 12/16/16 [History] Atenolol 100 mg PO DAILY 12/16/16 [History] Budesonide/Formoterol 160/4.5 [Symbicort 160/4.5] 2 puff IH BIDR 12/16/16 [History] Capsaicin 0.025% [Trixaicin] 1 appl TP TID 12/16/16 [History] Cholecalciferol (D-3) [Vitamin D] 2,000 unit PO DAILY 12/16/16 [History] Donepezil [Aricept] 10 mg PO HS 12/16/16 [History] Ferrous Sulfate [Iron] 325 mg PO DAILY 12/16/16 [History] Finasteride [Proscar] 5 mg PO HS 12/16/16 [History] GuaiFENesin/Dextromethorphan [Robitussin Cough-Chest Dm Liq] 10 ml PO Q4H PRN 12/16/16 [History] Hydrocortisone 1% CREAM [Cortaid] 1 appl TP DAILY PRN 12/16/16 [History] Ipratropium/Albuterol Neb [Duoneb] 3 ml IH Q6HR PRN 12/16/16 [History] Loperamide [Imodium] 2 mg PO QID PRN 12/16/16 [History] Losartan/Hydrochlorothiazide [Hyzaar 100-25 Tablet] 1 each PO DAILY 12/16/16 [History] Multivitamin [One Daily Essential] 1 each PO DAILY 12/16/16 [History] Simvastatin [Zocor] 40 mg PO HS 12/16/16 [History] Tamsulosin [Flomax] 0.4 mg PO HS 12/16/16 [History] Tizanidine HCl 4 mg PO Q8H PRN 12/16/16 [History] amLODIPine [Norvasc] 5 mg PO DAILY 12/16/16 [History] hydroCHLOROthiazide [Hydrochlorothiazide] 12.5 mg PO DAILY 12/16/16 [History] Lactobacillus [Culturelle] 2 each PO BID 11/11/17 [History] Memantine [Namenda] 5 mg PO DAILY 11/11/17 [History] Sertraline [Zoloft] 12.5 mg PO DAILY 11/11/17 [History] Bismuth Subsalicylate [Pepto-Bismol] 524 mg PO QID PRN 01/06/18 [History] Apixaban [Eliquis] 5 mg PO BID #30 tablet 01/09/18 [Rx] Guaifenesin [Mucus Relief] 600 mg PO BID PRN #0 01/09/18 [Rx] Methyl Salicylate/Menthol [Bengay] 1 appl TP BID PRN tube 01/09/18 [Rx] Diclofenac Sodium [Voltaren] 1 appl TP QID 09/24/18 [History] Famotidine [Acid Brand Strategy Manager] 10 mg PO DAILY 09/24/18 [History] Furosemide [Lasix] 20 mg PO DAILY 09/24/18 [History] Levothyroxine [Synthroid] 25 mcg PO DAILY 09/24/18 [History] Melatonin 5 mg PO HS 09/24/18 [History] Ondansetron [Zofran] 8 mg PO Q8H PRN 09/24/18 [History] predniSONE [PredniSONE] 10 mg PO DAILY 09/24/18 [History] OxyCODONE Immed Rel [Roxicodone 5 MG] 5 - 10 mg PO Q6HR PRN 1 Days #4 tablet 09/28/18 [Rx] levoFLOXacin [Levaquin] 750 mg PO DAILY #3 tablet 09/28/18 [Rx] predniSONE [PredniSONE] 40 mg PO DAILY 4 Days #8 tablet 09/28/18 [Rx] Allergies/Adverse Reactions: Allergy/AdvReac Type Severity Reaction Status Date / Time No Known Allergies Allergy Verified 01/06/18 12:32 Date of admission: 09/24/18 10:00 Primary care physician: August Montejo MD Consults: 09/24/18 14:05 Consult to Diabetes Education [CONS] Routine Comment: Reason for Consult: new onset of DM - Constitutional Vitals: Temp Pulse Resp BP Pulse Ox 99.2 F 102 16 114/73 98 09/28/18 07:11 09/28/18 07:11 09/28/18 07:25 09/28/18 07:11 09/28/18 07:30 Exam: General: Patient is alert, no acute distress, oriented x 1 ENT: Mucous membranes moist Respiratory: Decreased breath sounds at both bases. Cardiovascular: Irregularly irregular rhythm, tachycardia, no pedal edema. Abdomen: Abdomen is soft, nontender. Bowel sounds are present Musculoskeletal: Spontaneously moving all extremities Skin: warm, dry, intact. Neuro: Alert oriented x 1 normal cranial nerves, no focal deficits - Patient Status Disposition: Transfer SNF Condition: Fair - Discharge Instructions Follow Up With: August Montejo MD [Primary Care Provider] - (Patient will follow up with F PCP)
--- NOTE | 2018-09-28 10:08 | Physician Discharge Referral ---
- Diagnosis (1) Sepsis Priority: Primary Status: Acute (2) COPD (chronic obstructive pulmonary disease) Priority: Primary Status: Chronic (3) Dementia Priority: Primary Status: Chronic (4) Atrial fibrillation Priority: Primary Status: Chronic (5) Pneumonia Priority: Primary Status: Suspected (6) HTN (hypertension) Priority: Primary Status: Chronic (7) Diabetes mellitus Priority: Primary Status: Chronic (8) Hypothyroidism Priority: Primary Status: Chronic - Transfer Medications Prescriptions: OxyCODONE Immed Rel [Roxicodone 5 MG] 5 - 10 mg PO Q6HR PRN 1 Days #4 tablet PRN Reason: Pain levoFLOXacin [Levaquin] 750 mg PO DAILY #3 tablet predniSONE [PredniSONE] 40 mg PO DAILY 4 Days #8 tablet Home Medications: Albuterol Sulfate [Albuterol Inhaler] 2 puff IH Q4HR PRN 12/16/16 [History] Ascorbate Calcium [Vitamin C] 500 mg PO DAILY 12/16/16 [History] Aspirin 325 mg PO DAILY 12/16/16 [History] Atenolol 100 mg PO DAILY 12/16/16 [History] Budesonide/Formoterol 160/4.5 [Symbicort 160/4.5] 2 puff IH BIDR 12/16/16 [History] Capsaicin 0.025% [Trixaicin] 1 appl TP TID 12/16/16 [History] Cholecalciferol (D-3) [Vitamin D] 2,000 unit PO DAILY 12/16/16 [History] Donepezil [Aricept] 10 mg PO HS 12/16/16 [History] Ferrous Sulfate [Iron] 325 mg PO DAILY 12/16/16 [History] Finasteride [Proscar] 5 mg PO HS 12/16/16 [History] GuaiFENesin/Dextromethorphan [Robitussin Cough-Chest Dm Liq] 10 ml PO Q4H PRN 12/16/16 [History] Hydrocortisone 1% CREAM [Cortaid] 1 appl TP DAILY PRN 12/16/16 [History] Ipratropium/Albuterol Neb [Duoneb] 3 ml IH Q6HR PRN 12/16/16 [History] Loperamide [Imodium] 2 mg PO QID PRN 12/16/16 [History] Losartan/Hydrochlorothiazide [Hyzaar 100-25 Tablet] 1 each PO DAILY 12/16/16 [History] Multivitamin [One Daily Essential] 1 each PO DAILY 12/16/16 [History] Simvastatin [Zocor] 40 mg PO HS 12/16/16 [History] Tamsulosin [Flomax] 0.4 mg PO HS 12/16/16 [History] Tizanidine HCl 4 mg PO Q8H PRN 12/16/16 [History] amLODIPine [Norvasc] 5 mg PO DAILY 12/16/16 [History] hydroCHLOROthiazide [Hydrochlorothiazide] 12.5 mg PO DAILY 12/16/16 [History] Lactobacillus [Culturelle] 2 each PO BID 11/11/17 [History] Memantine [Namenda] 5 mg PO DAILY 11/11/17 [History] Sertraline [Zoloft] 12.5 mg PO DAILY 11/11/17 [History] Bismuth Subsalicylate [Pepto-Bismol] 524 mg PO QID PRN 01/06/18 [History] Apixaban [Eliquis] 5 mg PO BID #30 tablet 01/09/18 [Rx] Guaifenesin [Mucus Relief] 600 mg PO BID PRN #0 01/09/18 [Rx] Methyl Salicylate/Menthol [Bengay] 1 appl TP BID PRN tube 01/09/18 [Rx] Diclofenac Sodium [Voltaren] 1 appl TP QID 09/24/18 [History] Famotidine [Acid Alemite Operator] 10 mg PO DAILY 09/24/18 [History] Furosemide [Lasix] 20 mg PO DAILY 09/24/18 [History] Levothyroxine [Synthroid] 25 mcg PO DAILY 09/24/18 [History] Melatonin 5 mg PO HS 09/24/18 [History] Ondansetron [Zofran] 8 mg PO Q8H PRN 09/24/18 [History] predniSONE [PredniSONE] 10 mg PO DAILY 09/24/18 [History] OxyCODONE Immed Rel [Roxicodone 5 MG] 5 - 10 mg PO Q6HR PRN 1 Days #4 tablet 09/28/18 [Rx] levoFLOXacin [Levaquin] 750 mg PO DAILY #3 tablet 09/28/18 [Rx] predniSONE [PredniSONE] 40 mg PO DAILY 4 Days #8 tablet 09/28/18 [Rx] Allergies/Adverse Reactions: Allergy/AdvReac Type Severity Reaction Status Date / Time No Known Allergies Allergy Verified 01/06/18 12:32 - Respiratory Orders Smoking Cessation: Smoking cessation has been advised. For more information, call the [place] Tobacco Quit Line at 1-886-SOXX-NOW. - Mobility Orders Ambulate - Rehabiliation Orders Rehab Orders: Evaluation for Physical Therapy CERTIFICATION: I certify that the transfer of the above named patient to an Extended Care Facility is necessary for the continuing treatment of the diagnosis listed. The above information is true and accurate reflection of patient's current condition. Confidential - Redisclosure prohibited without a patient's written consent.
[2018-09-28 11:12] VITALS: BP 120/82
--- NOTE | 2018-09-28 16:04 | Electrocardiograph Report ---
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
== END 2018-09-28 11:22 | DRG 871 ==
LOC: EMEROOARM 07:41 → 2ANU 10:00 → SUATTDRO 10:00 → 2ANU 11:47
PROVIDERS: ADMIT Internal Medicine; ATTEND Internal Medicine